=== PATIENT | female | born 1955 | race African-American/Black ===

== ENCOUNTER → 2016-10-25 | Outpatient (CLI) | payer OTHER ==
[2016-10-04 16:55] VITALS: BP 128/58
[~2016-10-25] MED LIST: ALBU0.635 IH; ALBU8.5H3 IH; ATOR40TA59 PO; BUDE10.2 IH; CYCL10TA2 PO; DICY20TA30 PO; GUAI118L13 PO; HYDR-2666 PO; IPRA14.7 IH; IPRA3AMP NEB; MELO15TA6 PO; PANT40TA3 PO; PRED20TA PO; SULF1TAB24 PO; TRAM-29 PO
--- NOTE | 2016-10-25 15:36 | RAD ---
Indication injury 3 weeks ago. Persistent pain. Pain particularly associated with the PIP joint of the ring finger. An AP view of the right hand was obtained as well as oblique and lateral imaging targeted to the ring finger. No acute bony finding is seen. There are some mild degenerative changes involving the right finger
== END | disposition home or self-care (01) ==
LOC: DXRADRC 15:03
PROVIDERS: ATTEND Physician Assistant Medical
DX: S69.91XA Unspecified injury of right wrist, hand and finger(s), initial encounter (principal)
CPT/HCPCS: 73140

== ENCOUNTER → 2016-11-08 | Outpatient (CLI) | payer OTHER ==
[2016-10-04 16:55] VITALS: BP 128/58
--- NOTE | 2016-11-08 12:36 | RAD ---
CT chest without IV contrast History: Follow-up lung nodule. Comparison: CT chest 07/16/2016. Technique: Helical CT of the chest was performed without intravenous contrast. Axial, sagittal, and coronal reconstructions were obtained. One or more of the following individualized dose reduction techniques were utilized for the study: Automated exposure control Adjustment of mA and/or kV according to patient's size Use of iterative reconstruction technique. Findings: Thyroid is symmetric. Trachea and mainstem bronchi appear patent. No mediastinal lymphadenopathy is seen. Heart and pericardium are unremarkable. Thoracic aorta has normal caliber. No pneumothorax or pleural effusion is appreciated. The 2 left lower lobe pulmonary nodules do not appear appreciably changed in size. The larger nodule measures 1.4 cm in maximum axial dimension (previously 1.4 cm, my remeasurement). The smaller nodule measures 6-7 mm (previously 6 mm, thought unchanged). No new pulmonary nodules are seen. Cholecystectomy clips are present. The mid thoracic spine demonstrates multiple bridging disc osteophytes, suggesting DISH. Impression: 1. No interval change in appearance of 2 left lower lobe pulmonary nodules. No new pulmonary nodules are identified. Continued surveillance recommended.
== END | disposition home or self-care (01) ==
LOC: CT 11:21
PROVIDERS: ATTEND Internal Medicine Pulmonary Disease
DX: D86.9 Sarcoidosis, unspecified (principal)
CPT/HCPCS: 71250

== ENCOUNTER 2016-11-09 07:50 | Emergency (ER) | payer OTHER ==
[~2016-11-09] VITALS: Ht 157.5 cm; Wt 119.7 kg
[2016-11-09] MEDS ORDERED: IPRATRPIUM/ALBUTEROL 0.5/2.5MG 3 ML NEBU. ONE ×2 (07:52→07:59)
[2016-11-09] MEDS: ACETAMINOPHEN 500 MG TABLET PO ONE (08:29)
[2016-11-09] MEDS: PREDNISONE 10 MG TABLET PO ONE (08:29)
[2016-11-09] MEDS ORDERED: ALBUTEROL SULFATE 2.5 MG/3 ML NEBU. NEB ONE (08:30)
[2016-11-09 08:37] LABS: INFLUENZA A PATIENT NEGATIVE (NEGATIVE); INFLUENZA B PATIENT NEGATIVE (NEGATIVE)
--- NOTE | 2016-11-09 08:44 | RAD ---
Exam: AP portable chest. History: Dyspnea. Comparison: 10/04/2016. Findings: The heart and mediastinal structures are within normal limits for size. Lungs are without infiltrate. No pneumothorax or pleural effusion is appreciated. Impression: 1. No acute cardiopulmonary process.
[2016-11-09] MEDS: IV NORMAL SALINE 1,000ML 1,000 ML IV ONE (08:50)
[2016-11-09] MEDS: IPRATRPIUM/ALBUTEROL 0.5/2.5MG 3 ML NEBU. NEB ONE (09:13)
--- NOTE | 2016-11-09 09:25 | ED.ADGEN ---
Past History Past Medical History: Asthma, COPD, Diabetes, Hypertension, Other Past Surgical History: Appendectomy, Cholecystectomy, Hysterectomy, Other Smoking: Non-smoker Alcohol Use: None Drug Use: None Adult General HPI HPI Patient is a 61-year-old female presents emergency department for increasing dyspnea. Patient has a long history of COPD and reports that she has had more difficulty recently with her breathing but over last 24 hours it is gotten acutely worse. She denies productive cough with does have a fever. She states when she is coughing or wheezing is exasperated. At home she uses 2 L of oxygen via nasal cannula as needed with her dyspnea. Reports she is also been using her albuterol but feels like she is having difficulty catching her breath this morning. Review of Systems Review of Systems Constitutional: Denies fever or chills [] Eyes: Denies change in visual acuity, redness, or eye pain [] HENT: Denies nasal congestion or sore throat [] Respiratory: Denies cough or shortness of breath [] Cardiovascular: No additional information not addressed in HPI [] GI: Denies abdominal pain, nausea, vomiting, bloody stools or diarrhea [] : Denies dysuria or hematuria [] Musculoskeletal: Denies back pain or joint pain [] Integument: Denies rash or skin lesions [] Neurologic: Denies headache, focal weakness or sensory changes [] Endocrine: Denies polyuria or polydipsia [] Current Medications Current Medications Current Medications Medications (Trade) Dose Ordered Sig/Saulo Start Time Stop Time Status Last Admin Dose Admin Acetaminophen 1000 mg 1,000 mg 1X ONCE 11/09/16 08:30 11/09/16 08:31 DC 11/09/16 08:29 1,000 MG Albuterol Sulfate (Ventolin) 2.5 mg 1X ONCE 11/09/16 08:30 11/09/16 08:31 DC Albuterol/ Ipratropium (Duoneb) 3 ml 1X ONCE 11/09/16 09:30 11/09/16 09:31 DC Prednisone (Prednisone) 50 mg 1X ONCE 11/09/16 08:30 11/09/16 08:31 DC 11/09/16 08:29 50 MG Sodium Chloride (Iv Sodium Chloride 0.9% 1,000ml) 1,000 ml @ 1,000 mls/hr 1X ONCE 11/09/16 09:00 11/09/16 10:00 DC 11/09/16 08:50 1,000 MLS/HR Allergies Allergies Allergies Coded Allergies Type Severity Reaction Last Updated Verified No Known Drug Allergies 01/04/16 No Physical Exam Physical Exam Constitutional: Well developed, well nourished, no acute distress, non-toxic appearance. [] HENT: Normocephalic, atraumatic, bilateral external ears normal, oropharynx moist, no oral exudates, nose normal. [] Eyes: PERRLA, EOMI, conjunctiva normal, no discharge. [] Neck: Normal range of motion, no tenderness, supple, no stridor. [] Cardiovascular:Heart rate regular rhythm, no murmur [] Lungs & Thorax: Bilateral breath sounds clear to auscultation [] Abdomen: Bowel sounds normal, soft, no tenderness, no masses, no pulsatile masses. [] Skin: Warm, dry, no erythema, no rash. [] Back: No tenderness, no CVA tenderness. [] Extremities: No tenderness, no cyanosis, no clubbing, ROM intact, no edema. [] Neurologic: Alert and oriented X 3, normal motor function, normal sensory function, no focal deficits noted. [] Psychologic: Affect normal, judgement normal, mood normal. [] Current Patient Data Vital Signs Vital Signs Date Time Temp Pulse Resp B/P Pulse Ox O2 Delivery O2 Flow Rate FiO2 11/09/16 10:15 98.7 116 20 132/67 93 Nasal Cannula 2 Lab Results Laboratory Tests Test 11/09/16 08:05 Influenza Type A (Rapid) Negative (NEGATIVE) Influenza Type B (Rapid) Negative (NEGATIVE) EKG EKG [] Radiology/Procedures Radiology/Procedures Exam: AP portable chest. History: Dyspnea. Comparison: 10/04/2016. Findings: The heart and mediastinal structures are within normal limits for size. Lungs are without infiltrate. No pneumothorax or pleural effusion is appreciated. Impression: 1. No acute cardiopulmonary process. DICTATED AND SIGNED BY: ELMA ELIAS MD DATE: 11/09/16 0840 CC: FAUSTO DOSS MD; MUNA MEEHAN ~ [] Course & Med Decision Making Course & Med Decision Making Pertinent Labs and Imaging studies reviewed. (See chart for details) The patient was febrile upon arrival. Her influenza screens are negative. Her chest x-rays reassuring. 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 She has had multiple breathing treatments as well as prednisone here in emergency department. She reports that she is feeling better and close to her baseline. Patient will be discharged back home with a prescription for prednisone as well as follow-up and return precautions. [] Final Impression Final Impression COPD exacerbation [] Problems: Dragon Disclaimer Dragon Disclaimer This electronic medical record was generated, in whole or in part, using a voice recognition dictation system. FAUSTO DOSS MD Nov 09, 2016 09:24
[2016-11-09] MEDS ORDERED: PRED20TA PO (09:26)
[2016-11-09] MEDS ORDERED: IPRATRPIUM/ALBUTEROL 0.5/2.5MG 3 ML NEBU. NEB ONE (09:30)
[2016-11-09 10:15] VITALS: BP 132/67
== END 2016-11-09 10:20 | disposition home or self-care (01) ==
LOC: ER 07:50
DX: J44.1 Chronic obstructive pulmonary disease with (acute) exacerbation (principal); E11.9 Type 2 diabetes mellitus without complications; I10 Essential (primary) hypertension; J45.909 Unspecified asthma, uncomplicated
CPT/HCPCS: 71010; 87804; 94640; 96360; 99285; J7512; J7620; J7030

== ENCOUNTER 2017-01-29 13:59 | Emergency (ER) | payer OTHER ==
[~2017-01-29] VITALS: Ht 157.5 cm; Wt 122.7 kg
[~2017-01-29 13:59] MED LIST changes: -ALBU8.5H3 IH; +ALBU8.5H8 IH; +CYCL-331 PO; -CYCL10TA2 PO; -HYDR-2666 PO; +HYDR-2758 PO; -TRAM-29 PO; +TRAM-48 PO
[2017-01-29 14:18] VITALS: BP 184/96
== END 2017-01-29 15:11 | disposition home or self-care (01) ==
LOC: ER 13:59
DX: R10.9 Unspecified abdominal pain (principal); Z53.21 Procedure and treatment not carried out due to patient leaving prior to being seen by health care provider

== ENCOUNTER → 2017-02-28 | Outpatient (CLI) | payer OTHER ==
[2017-01-29 14:18] VITALS: BP 184/96
--- NOTE | 2017-02-28 17:46 | RAD ---
KNEE LEFT 3V Clinical Indication: LEFT KNEE PAIN AND SWELLING Comparison: Knee radiographs dated 09/08/2015 Findings: No acute fracture or malalignment. 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 Patellar and tibial tuberosity enthesophytes. No suprapatellar joint effusion. No significant soft tissue abnormality. IMPRESSION: 1. No acute fracture or malalignment. 2. 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
== END | disposition home or self-care (01) ==
LOC: DXRADRC 10:13
PROVIDERS: ATTEND Physician Assistant Medical
DX: M17.12 Unilateral primary osteoarthritis, left knee (principal); M25.462 Effusion, left knee
CPT/HCPCS: 73562

== ENCOUNTER 2017-04-08 10:09 | Emergency (ER) | payer OTHER ==
[~2017-04-08] VITALS: Ht 170.2 cm; Wt 119.7 kg
[2017-04-08] MEDS ORDERED: IV NORMAL SALINE 1,000ML 1,000 ML ONE (10:21)
[2017-04-08] MEDS ORDERED: ADENOSINE 6 MG/2 ML VIAL IV ONE ×3 (10:21→11:10)
[2017-04-08] MEDS ORDERED: IPRATROPIUM BROMIDE 0.5 MG/2.5 ML NEBU. ONE (10:53)
--- NOTE | 2017-04-08 10:53 | PHYS DOC ---
Past History Past Medical History: Other Past Surgical History: Appendectomy, Cholecystectomy, Hysterectomy, Other Smoking: Non-smoker Alcohol Use: None Drug Use: None Adult General Chief Complaint Chief Complaint: Palpitations HPI HPI Patient is a 61-year-old female presenting to the emergency department for evaluation of shortness of breath chest pain and palpitations. She sees Dr. Keller at [facility] for her pulmonary care and says that she was placed on a 5 day steroid taper last week and finished at Tuesday. She says that she was feeling poorly over the weekend with continued shortness of breath and was doing a breathing treatment this morning at 5 AM and says that she started feeling very poorly with palpitations and fast heart rate sweating and some burning chest pain. On arrival she does look slightly uncomfortable and she is diaphoretic shortness of breath with audible wheezing. Her heart rate is 185 and appears consistent with SVT. She denies any prior episodes of SVT heart attacks or congestive heart failure. Patient is typically on 2 L of oxygen which is what she is on currently. She is in no obvious distress but does appear uncomfortable. Review of Systems Review of Systems Constitutional: Denies fever or chills [] Eyes: Denies change in visual acuity, redness, or eye pain [] HENT: Denies nasal congestion or sore throat [] Respiratory: Denies productive cough. + shortness of breath [] Cardiovascular: + CP GI: Denies abdominal pain, nausea, vomiting, bloody stools or diarrhea [] : Denies dysuria or hematuria [] Musculoskeletal: Denies back pain or joint pain [] Integument: Denies rash or skin lesions [] Neurologic: Denies headache, focal weakness. + dizziness sensory changes [] Current Medications Current Medications Current Medications Medications (Trade) Dose Ordered Sig/Saulo Start Time Stop Time Status Last Admin Dose Admin Adenosine (Adenocard) 12 mg 1X ONCE 04/08/17 10:30 04/08/17 10:31 UNV Methylprednisolone Sodium Succinate (SOLU-Medrol 125MG VIAL) 125 mg 1X ONCE 04/08/17 10:30 04/08/17 10:31 UNV Sodium Chloride 1,000 ml @ As Directed STK-MED ONCE 04/08/17 10:21 04/08/17 10:22 DC Allergies Allergies Allergies Coded Allergies Type Severity Reaction Last Updated Verified No Known Drug Allergies 01/04/16 No Physical Exam Physical Exam Constitutional: Diaphoretic, mild soa HENT: Normocephalic, atraumatic, bilateral external ears normal, oropharynx moist, no oral exudates, nose normal. [] Eyes: PERRLA, EOMI, conjunctiva normal, no discharge. [] Neck: Normal range of motion, no tenderness, supple, no stridor. [] Cardiovascular:Heart rate regular rhythm but tachycardic in 180s, no murmur [] Lungs & Thorax: Bilateral breath sounds diminished with I/E wheezing Abdomen: Bowel sounds normal, soft, no tenderness, no masses, no pulsatile masses. [] Skin: Warm, dry, no erythema, no rash. [] Back: No tenderness, no CVA tenderness. [] Extremities: No tenderness, no cyanosis, no clubbing, ROM intact, no edema. [] Neurologic: Alert and oriented X 3, normal motor function, normal sensory function, no focal deficits noted. [] EKG EKG Initial EKG showed SVT at a heart rate of 184. After conversion her EKG showed sinus tachycardia at 103 bpm with normal axis and 3 noted PVCs. Radiology/Procedures Radiology/Procedures [] Course & Med Decision Making Course & Med Decision Making Patient with new onset SVT likely from using her breathing treatment. Patient did convert with 12 mg of adenosine after failing with 6 mg of adenosine. Patient admits that she is feeling better after being converted to sinus. Patient with dyspnea, did not improve with outpatient steroids, she is struggling and using so many breathing treatments she went into SVT. Patient is not stable for discharge in my opinion as I am afraid she'll go back into SVT. She has been an SVT likely at least since this morning and probably yesterday and she said when she checked her blood pressure yesterday her heart rate was 170. I am concerned that she will put herself into heart failure. Patient will be admitted to the hospital but from my understanding there is no pulmonary consultation available at [facility] so she'll be transferred to [facility]. I spoke to Dr. Mendes and he agreed to accept the patient. Patient transferred in stable condition. Dragon Disclaimer Dragon Disclaimer This chart was dictated in whole or in part using Voice Recognition software in a busy, high-work load, and often noisy Emergency Department environment. It may contain unintended and wholly unrecognized errors or omissions. Departure Departure: Impression: Primary Impression: Sarcoidosis of lung Additional Impressions: Dyspnea SVT (supraventricular tachycardia) Disposition: 05 XFER OTHER ([facility]) Condition: STABLE Referrals: MUNA MEEHAN (PCP) Problem Qualifiers FAUSTO HOOVER DO Apr 08, 2017 10:53
[2017-04-08] MEDS ORDERED: IPRATROPIUM BROMIDE 0.5 MG/2.5 ML NEBU. NEB ONE (11:00)
[2017-04-08] MEDS ORDERED: methylPREDNISolone SOD SUCC PF 125 MG/2 ML VIAL. IV ONE (11:10)
[2017-04-08] MEDS ORDERED: LEVALBUTEROL 1.25 MG ONE (11:15)
[2017-04-08] MEDS ORDERED: IV NORMAL SALINE 1,000ML 1,000 ML IV ONE (11:30)
[2017-04-08 11:47] LABS: BASO # 0.1 x10^3/uL (0.0-0.2); BASO % 1 % (0-3); EOS # 0.3 x10^3/uL (0.0-0.7); EOS % 4 % (0-3); HEMATOCRIT 44.5 % (36.0-47.0); HEMOGLOBIN 14.5 g/dL (12.0-15.5); LYMPH # 4.3 x10^3/uL (1.0-4.8); LYMPH % 52 % (24-48); MEAN CORPUSCULAR HEMOGLOBIN 26 pg (25-35); MEAN CORPUSCULAR HGB CONC 33 g/dL (31-37); MEAN CORPUSCULAR VOLUME 79 fL (79-100); MONO # 0.4 x10^3/uL (0.0-1.1); MONO % 5 % (0-9); NEUT # 3.1 x10^3uL (1.8-7.7); NEUT % 38 % (31-73); PLATELET COUNT 236 x10^3/uL (140-400); RED BLOOD COUNT 5.63 x10^6/uL (3.50-5.40); RED CELL DISTRIBUTION WIDTH 15.3 % (11.5-14.5); WHITE BLOOD COUNT 8.1 x10^3/uL (4.0-11.0)
--- NOTE | 2017-04-08 12:02 | RAD ---
AP portable chest radiograph 04/08/2017 Clinical History: Chest pain and shortness of breath since earlier today. An AP portable erect digital radiograph of the chest was obtained. Comparison study is dated 11/09/2016. The cardiac silhouette is mildly enlarged. The thoracic aorta is mildly tortuous. No acute pulmonary infiltrate is seen. No pleural effusion or pneumothorax is noted. Degenerative changes are seen involving the thoracic spine and both shoulders. Impression: No acute abnormality is seen.
[2017-04-08 12:07] LABS: ALBUMIN 3.3 g/dL (3.4-5.0); ALBUMIN/GLOBULIN RATIO 0.9 (1.0-1.7); CALCIUM 8.9 mg/dL (8.5-10.1); GFR 68.4; MAGNESIUM 2.4 mg/dL (1.8-2.4); POTASSIUM 3.8 mmol/L (3.5-5.1); TOTAL BILIRUBIN 0.3 mg/dL (0.2-1.0); TOTAL PROTEIN 6.9 g/dL (6.4-8.2)
[2017-04-08 12:36] VITALS: BP 152/80
[2017-04-08 12:45] LABS: AMPHETAMINE/METHAMPHETAMINE NEG (NEG); BARBITURATES NEG (NEG); BENZODIAZEPINES NEG (NEG); CANNABINOIDS NEG (NEG); COCAINE NEG (NEG); METHADONE NEG (NEG); OPIATES NEG (NEG); PHENCYCLIDINE NEG (NEG)
[2017-04-08 12:58] LABS: BILIRUBIN,URINE NEG (NEG); CLARITY,URINE CLEAR; COLOR,URINE STRAW; GLUCOSE,URINE NEG (NEG)
[2017-04-08 12:59] LABS: BACTERIA,URINE 0 /HPF (0-FEW); NITRITE,URINE NEG (NEG); RBC,URINE 0 /HPF (0-2); SQUAMOUS EPITHELIAL CELL,UR OCC /LPF; UROBILINOGEN,URINE 0.2 mg/dL (0.2 mg/dL); WBC,URINE 0 /HPF (0-4)
--- NOTE | 2017-04-08 16:51 | EKG ---
[address] [address] Test Date: 2017-04-08 Test Time: 10:20:16 Pat Name: ANAI WHEELER Department: Room: Gender: F Neurology Tech: : [id number] Requested By: FAUSTO HOOVER Order Number: [id number] Reading MD: Jose Romero Measurements Intervals [place] Rate: 184 P: [place]: QRS: 21 QRSD: 72 T: 56 QT: 272 QTc: 477 Interpretive Statements S[employer] AVNRT Electronically Signed On 04-12-2017 9:48:44 CDT by Jose Romero
== END 2017-04-08 12:50 | disposition short-term general hospital (02) ==
LOC: ER 10:09
DX: I47.1 Supraventricular tachycardia (principal); D86.0 Sarcoidosis of lung; R61 Generalized hyperhidrosis
CPT/HCPCS: 36415; 71010; 80053; 80307; 81001; 82550; 82947; 83690; 83735; 83880; 84443; 84484; 85025; 85610; 85730; 93005; 94640; 96361; 96374; 96375; 99285; G0480; J0153; J2930; J7644; G0479; J7030

== ENCOUNTER → 2017-05-18 | Outpatient (CLI) | payer OTHER ==
--- NOTE | 2017-05-18 11:11 | RAD ---
DATE: 05/18/2017 EXAM: DIGITAL SCREEN BILAT W/CAD HISTORY: Screening COMPARISON: One year earlier This study was interpreted with the benefit of Computerized Aided Detection (CAD). FINDINGS: Breast Density: SCATTERED The breast parenchyma shows scattered fibroglandular densities. Breast parenchyma level B. In the right breast, on the cc view, there is a well defined density close to the chest wall along the plane of the nipple. A coned compression view and rolled CC views are suggested. Depending on the results of diagnostic mammography targeted ultrasound may be warranted. The left breast is unchanged. There has not been a significant change in the appearance of the breasts. IMPRESSION: Well-defined density seen in the right breast on the cc view. Additional imaging suggested as outlined above BI-RADS CATEGORY: 0 INCOMPLETE: NEED ADDITIONAL IMAGING EVAULATION AND/OR PRIOR MAMMOGRAMS FOR COMPARISON RECOMMENDED FOLLOW-UP: ADD ADDITIONAL IMAGING PQRS compliance statement: Patient information was entered into a reminder system with a target due date soon for the next mammogram. Mammography is a sensitive method for finding small breast cancers, but it does not detect them all and is not a substitute for careful clinical examination. A negative mammogram does not negate a clinically suspicious finding and should not result in delay in biopsying a clinically suspicious abnormality. "Our facility is accredited by the [employer] Mammography Program."
== END | disposition home or self-care (01) ==
LOC: MAMMO 09:14
PROVIDERS: ATTEND Physician Assistant Medical
DX: Z12.31 Encounter for screening mammogram for malignant neoplasm of breast (principal)
CPT/HCPCS: G0202; 77067

== ENCOUNTER → 2017-05-27 | Outpatient (CLI) | payer OTHER ==
--- NOTE | 2017-05-27 11:44 | RAD ---
DATE: May 27, 2017 EXAM: DIGITAL DIAGNOSTIC RT HISTORY: Further evaluation of new nodule seen posteriorly and centrally on the CC projection of the right breast seen on a screening mammogram dated May 18, 2017. COMPARISON: May 18, 2017 This study was interpreted with the benefit of Computerized Aided Detection (CAD). FINDINGS: Focal digital compression views of the right breast in the CC and MLO projections and digital rolled CC views of the right breast were performed. The previously seen nodular density resolves with the additional views consistent with a benign finding. IMPRESSION: Benign finding of the right breast. Recommend routine screening mammography in one year. BI-RADS CATEGORY: 2 BENIGN FINDING RECOMMENDED FOLLOW-UP: 12M 12 MONTH FOLLOW-UP PQRS compliance statement: Patient information was entered into a reminder system with a target due date May 19, 2018 for the next mammogram. Mammography is a sensitive method for finding small breast cancers, but it does not detect them all and is not a substitute for careful clinical examination. A negative mammogram does not negate a clinically suspicious finding and should not result in delay in biopsying a clinically suspicious abnormality. "Our facility is accredited by the [employer] Mammography Program."
== END | disposition home or self-care (01) ==
LOC: MAMMO 09:59
PROVIDERS: ATTEND Physician Assistant Medical
DX: R92.8 Other abnormal and inconclusive findings on diagnostic imaging of breast (principal)
CPT/HCPCS: G0206; 77065

== ENCOUNTER → 2017-08-26 | Outpatient (CLI) | payer OTHER ==
--- NOTE | 2017-08-26 13:38 | RAD ---
Chest, 2 views, 08/26/2017: History: Preop evaluation for knee surgery Comparison is made to a study from 04/08/2017. The heart size and pulmonary vascularity are normal. There is mild tortuosity of the thoracic aorta. No pulmonary infiltrate is seen. There is no evidence of pleural fluid. Moderate spurring is present in the spine. IMPRESSION: No acute cardiopulmonary abnormality is detected.
== END | disposition home or self-care (01) ==
LOC: DXRAD 13:15
PROVIDERS: ATTEND Internal Medicine Pulmonary Disease
DX: D86.9 Sarcoidosis, unspecified (principal); Z01.818 Encounter for other preprocedural examination; J45.909 Unspecified asthma, uncomplicated; Z87.891 Personal history of nicotine dependence
CPT/HCPCS: 71046

== ENCOUNTER → 2017-11-21 | Outpatient (CLI) | payer OTHER ==
--- NOTE | 2017-11-21 16:09 | RAD ---
Chest CT without contrast Clinical indications: Lung nodule follow-up. TECHNIQUE: Noncontrast helical CT scanning of the chest was performed. Without IV contrast, the sensitivity to detect organ pathology is decreased. PQRS compliance Statement One or more of the following individualized dose reduction techniques were utilized for this study: 1. Automated exposure control 2. Adjustment of the mA and/or kV according to patient size 3. Use of iterative reconstruction technique COMPARISON: December 31, 2015. FINDINGS: No enlarged thoracic lymphadenopathy is evident. The heart size is normal and no pericardial effusion is seen. No focal aneurysmal dilatation of the thoracic aorta is seen. A small hiatal hernia is evident. No adrenal mass is evident. Again seen are 2 left lower lobe lung nodules adjacent one another within the left lateral lung base and costophrenic angle. These are unchanged in size. No new lung nodules or lung infiltrate are seen. No pleural effusion or pneumothorax is evident. The proximal bronchial tree is patent. No osteolytic process is seen. IMPRESSION: Stable left lower lobe lung nodules. No new finding. Electronically signed by: Salomón Martinez MD (11/21/2017 4:06 PM) [facility]
== END | disposition home or self-care (01) ==
LOC: CT 09:09
PROVIDERS: ATTEND Internal Medicine Pulmonary Disease
DX: J44.9 Chronic obstructive pulmonary disease, unspecified (principal); K44.9 Diaphragmatic hernia without obstruction or gangrene; I10 Essential (primary) hypertension; E11.65 Type 2 diabetes mellitus with hyperglycemia; E78.00 Pure hypercholesterolemia, unspecified; R91.8 Other nonspecific abnormal finding of lung field
CPT/HCPCS: 71250

== ENCOUNTER 2018-01-05 13:23 | Emergency (ER) | payer OTHER ==
[~2018-01-05] VITALS: Ht 170.2 cm; Wt 122.7 kg
[2018-01-05 13:34] VITALS: BP 116/76
--- NOTE | 2018-01-05 14:06 | PHYS DOC ---
Past History Past Medical History: COPD Past Surgical History: Other Smoking: Non-smoker Alcohol Use: None Drug Use: None Adult General Chief Complaint Chief Complaint: UPPER EXTREMITY PAIN HPI HPI 62-year-old female presents with right upper back pain. She states that she woke up today and had stiffness and pain in the right side of her upper back. She is concerned that maybe she pulled a muscle yesterday. She wasn't doing anything extra strenuous. She states that it hurts when she abducts her right arm. If she completely relaxes her muscles it is mildly sore, but doesn't hurt as much. She is also had some tingling sensation going down the arm. No loss of strength. No recent trauma. No fever or chills. Review of Systems Review of Systems Constitutional: Denies fever or chills [] Eyes: Denies change in visual acuity, redness, or eye pain [] HENT: Denies nasal congestion or sore throat [] Respiratory: Denies cough or shortness of breath [] Cardiovascular: No additional information not addressed in HPI [] GI: Denies abdominal pain, nausea, vomiting, bloody stools or diarrhea [] : Denies dysuria or hematuria [] Musculoskeletal: right upper back pain [] Integument: Denies rash or skin lesions [] Neurologic: Denies headache, focal weakness or sensory changes [] Endocrine: Denies polyuria or polydipsia [] All other systems were reviewed and found to be within normal limits, except as documented in this note. Allergies Allergies Allergies Coded Allergies Type Severity Reaction Last Updated Verified No Known Drug Allergies 01/04/16 No Physical Exam Physical Exam Constitutional: Well developed, well nourished, no acute distress, non-toxic appearance. [] HENT: Normocephalic, atraumatic, bilateral external ears normal, oropharynx moist, no oral exudates, nose normal. [] Eyes: PERRLA, EOMI, conjunctiva normal, no discharge. [] Neck: Normal range of motion, no tenderness, supple, no stridor. [] Cardiovascular:Heart rate regular rhythm, no murmur [] Lungs & Thorax: Bilateral breath sounds clear to auscultation [] Abdomen: Bowel sounds normal, soft, no tenderness, no masses, no pulsatile masses. [] Skin: Warm, dry, no erythema, no rash. [] Back: Tenderness and muscle spasm in the right trapezius muscle. No bony deformity or step-off [] Extremities: No tenderness, no cyanosis, no clubbing, ROM intact, no edema. [] Neurologic: Alert and oriented X 3, normal motor function, normal sensory function, no focal deficits noted. [] Psychologic: Affect normal, judgement normal, mood normal. [] Current Patient Data Vital Signs Vital Signs Date Time Temp Pulse Resp B/P (MAP) Pulse Ox O2 Delivery O2 Flow Rate FiO2 01/05/18 13:34 97.8 85 18 96 Room Air EKG EKG [] Radiology/Procedures Radiology/Procedures [] Course & Med Decision Making Course & Med Decision Making Pertinent Labs and Imaging studies reviewed. (See chart for details) Based on the patient's exam, I believe she has a muscle strain of the trapezius with reflex spasm. I will recommend ibuprofen 6 her milligrams 3 times a day as well as 5 mg of Flexeril 3 times a day. [] Dragon Disclaimer Dragon Disclaimer This electronic medical record was generated, in whole or in part, using a voice recognition dictation system. Departure Departure: Referrals: MUNA MEEHAN (PCP) Scripts Cyclobenzaprine Hcl (CYCLOBENZAPRINE HCL) 5 Mg Tablet 1 TAB PO TID, #30 TAB Prov: JUNIOR GOMES DO 01/05/18 JUNIOR GOMES DO January 05, 2018 14:06
[2018-01-05] MEDS ORDERED: CYCL5TAB PO (14:08)
== END 2018-01-05 14:13 | disposition home or self-care (01) ==
LOC: ER 13:23
DX: S29.012A Strain of muscle and tendon of back wall of thorax, initial encounter (principal); J44.9 Chronic obstructive pulmonary disease, unspecified; X58.XXXA Exposure to other specified factors, initial encounter; Y93.89 Activity, other specified; Y99.8 Other external cause status; Y92.89 Other specified places as the place of occurrence of the external cause
CPT/HCPCS: 99283

== ENCOUNTER 2018-01-12 10:27 | Emergency (ER) | payer OTHER ==
[~2018-01-12] VITALS: Ht 170.2 cm; Wt 88.0 kg
[~2018-01-12 10:27] MED LIST changes: +CYCL5TAB PO
[2018-01-12] MEDS ORDERED: LIDO700A39 TP (10:50)
--- NOTE | 2018-01-12 10:50 | PHYS DOC ---
Past History Past Medical History: Anxiety, COPD Additional Past Medical Histor: sarcoidosis Past Surgical History: Other Smoking: Non-smoker Alcohol Use: None Drug Use: None Adult General Chief Complaint Chief Complaint: UPPER EXTREMITY PAIN HPI HPI Patient is a pleasant 62-year-old female who presents to the emergency department for evaluation. She states for the past 2-1/2 weeks, she has had right shoulder pain, described as sharp, radiating from her right trapezius area down towards her right shoulder area and right arm. Movement, especially external rotation, seems to worsen her pain. She has not had any numbness or focal weakness. She was seen in the emergency department recently, instructed to use NSAIDs and given a prescription for a muscle relaxer which has not improved her symptoms. She has also been using heat, without improvement. She presents to the emergency department for persistent pain. No imaging was done at the time. The patient has been using a sling that was provided to her by a family member, with some minimal improvement, as decreasing movement helps improve the pain. Other than as stated above, there are no alleviating, or exacerbating factors to her symptoms. Review of Systems Review of Systems Constitutional: Denies fever or chills [] Eyes: Denies change in visual acuity, redness, or eye pain [] HENT: Denies nasal congestion or sore throat [] Respiratory: Denies cough or shortness of breath. Patient is noted to be wheezing. [] Cardiovascular: The patient denies any shortness of breath, chest pain, palpitations, or orthopnea [] GI: Denies abdominal pain, nausea, vomiting, bloody stools or diarrhea [] : Denies dysuria or hematuria [] Musculoskeletal: Denies back pain or joint pain, other than as noted in the history of present illness [] Integument: Denies rash or skin lesions [] Neurologic: Denies headache, focal weakness or sensory changes [] Endocrine: Denies polyuria or polydipsia [] Current Medications Current Medications Current Medications Medications (Trade) Dose Ordered Sig/Saulo Start Time Stop Time Status Last Admin Dose Admin Albuterol/ Ipratropium (Duoneb) 3 ml 1X ONCE 01/12/18 10:45 01/12/18 10:46 UNV Allergies Allergies Allergies Coded Allergies Type Severity Reaction Last Updated Verified No Known Drug Allergies 01/04/16 No Physical Exam Physical Exam PHYSICAL EXAM: CONSTITUTIONAL: Well developed, well nourished HEAD: normocephalic, atraumatic EENT: PERRL, EOMI. Conjunctivae normal color, sclerae non-icteric; moist mucous membranes. NECK: Supple, non-tender; no meningismus. There is no midline vertebral tenderness to palpation to the cervical spine. LUNGS: There are coarse expiratory wheezes in all lung toribio with unlabored breathing, the patient is speaking in full sentences. HEART: Regular rate and rhythm, no murmur CHEST: No deformity; non-tender ABDOMEN: The abdomen is soft, and non-tender, no masses or bruits. EXTREM: There is diffuse tenderness to palpation to the musculature of the right shoulder, both posteriorly, and laterally/superiorly, all of which reproduces the patient's pain. There is no gross deformity. Distal PMS in the right upper extremity are intact. The remainder of the extremities are unremarkable, with Normal ROM; no deformity, no calf tenderness. Normal pulses palpable in all extremities. There is no pedal edema. SKIN: No rash; no diaphoresis NEURO: Alert; normal speech and cognition; CN's grossly intact; strength grossly intact without focal deficit. BACK: No CVA TTP.There is no bony tenderness to palpation of the thoracic or lumbar spine. EKG EKG [] Radiology/Procedures Radiology/Procedures [PROCEDURE: SHOULDER 2+V RIGHT Examination: 2 views of the right shoulder HISTORY: History of right shoulder pain COMPARISON: 06/23/2015 FINDINGS: The humerus head is within the glenoid. There is mild degenerative changes identified in the acromioclavicular joint. There is no acute fracture or dislocation identified. IMPRESSION: 1. No acute osseous findings. 2. Mild degenerative changes acromioclavicular joint.] Course & Med Decision Making Course & Med Decision Making Pertinent lmaging studies reviewed. (See chart for details) [I am uncertain of the exact etiology of the patient's symptoms. Likely she has shoulder degenerative changes, or rotator cuff injury that requires orthopedic evaluation. Another differential consideration is the possibility of a cervical radiculopathy. I stressed importance for close outpatient orthopedic follow-up for further evaluation and likely MRI imaging. I will add a Lidoderm patch to the patient's medication regimen. Return precautions were discussed in detail.] Dragon Disclaimer Dragon Disclaimer This electronic medical record was generated, in whole or in part, using a voice recognition dictation system. Departure Departure: Impression: Primary Impression: Shoulder pain Additional Impression: Wheezing Disposition: 01 HOME, SELF-CARE Condition: STABLE Referrals: MUNA MEEHAN (PCP) Patient Instructions: Shoulder Pain Additional Instructions: Follow-up with Dr. Castanon, [facility], [phone]. Please call to schedule appointment. Continue using ibuprofen 400-600 mg every 6 hours as needed for pain. Scripts Lidocaine (Lidocaine) 1 Each Adh..patch 1 EACH TP DAILY, #15 PATCH Prov: FAUSTO CARROLL MD 01/12/18 Problem Qualifiers FAUSTO CARROLL MD Jan 12, 2018 10:50
[2018-01-12] MEDS ORDERED: ALBUTEROL SULFATE 2.5 MG/3 ML NEBU. ONE (10:51)
--- NOTE | 2018-01-12 11:06 | RAD ---
Examination: 2 views of the right shoulder HISTORY: History of right shoulder pain COMPARISON: 06/23/2015 FINDINGS: The humerus head is within the glenoid. There is mild degenerative changes identified in the acromioclavicular joint. There is no acute fracture or dislocation identified. IMPRESSION: 1. No acute osseous findings. 2. Mild degenerative changes acromioclavicular joint. Electronically signed by: Emmanuel Chow MD (01/12/2018 11:02 AM) [id number]
[2018-01-12] MEDS: IPRATRPIUM/ALBUTEROL 0.5/2.5MG 3 ML NEBU. NEB ONE ×2 (11:11→11:12)
[2018-01-12 11:23] VITALS: BP 149/89
== END 2018-01-12 11:20 | disposition home or self-care (01) ==
LOC: ER 10:27
DX: M25.511 Pain in right shoulder (principal); R06.2 Wheezing; F41.9 Anxiety disorder, unspecified; J44.9 Chronic obstructive pulmonary disease, unspecified
CPT/HCPCS: 73030; 94640; J7620; 99284-25

== ENCOUNTER 2018-03-18 08:38 | Emergency (ER) | payer OTHER ==
[~2018-03-18] VITALS: Ht 170.2 cm; Wt 103.4 kg
[~2018-03-18 08:38] MED LIST changes: -IPRA3AMP NEB; +IPRA3AMP29 NEB; +LIDO700A39 TP
[2018-03-18 08:49] VITALS: BP 120/67
--- NOTE | 2018-03-18 09:05 | PHYS DOC ---
Past History Past Medical History: Anxiety, COPD Additional Past Medical Histor: sarcoidosis Past Surgical History: Other Smoking: Non-smoker Alcohol Use: None Drug Use: None Adult General Chief Complaint Chief Complaint: UPPER EXTREMITY INJURY HPI HPI Patient is a 62-year-old female who presents to the emergency department complaining of right arm and shoulder pain. Patient states that on Tuesday as she was taking out her garbage she fell down some stairs. She denies hitting her head and denies any loss of consciousness. Patient states that her right shoulder and right elbow are tender when she tries to move them. She describes the pain as sharp and 2/10 in severity. Patient states that when she touches her right shoulder or raises her arm that there is some mild pain that goes down her arm. She states that she took 2 Aleve last night but they did not help with the pain. She also says that moving her arm and pushing on her shoulder and elbow make the pain worse. Denies head trauma. Denies LOC. Denies neck pain. Review of Systems Review of Systems Constitutional: Denies fever or chills [] Eyes: Denies change in visual acuity, redness, or eye pain [] HENT: Denies nasal congestion or sore throat [] Respiratory: Denies cough or shortness of breath [] Cardiovascular: Denies chest pain and palpitations[] GI: Denies abdominal pain, nausea, vomiting, bloody stools or diarrhea [] Musculoskeletal: Complains of right shoulder and elbow pain[] Integument: Denies any skin lesions or lacerations[] Neurologic: Denies headache, focal weakness or sensory changes [] Complete systems were reviewed and found to be within normal limits, except as documented in this note. Allergies Allergies Allergies Coded Allergies Type Severity Reaction Last Updated Verified No Known Drug Allergies 01/04/16 No Physical Exam Physical Exam Constitutional: Well developed, well nourished, no acute distress, non-toxic appearance. [] HENT: Normocephalic, atraumatic, oropharynx moist Eyes: PERRL, EOMI [] Neck: Normal range of motion, no midline tenderness, supple Cardiovascular: Heart rate regular rhythm, no murmur [] Lungs & Thorax: Bilateral breath sounds clear to auscultation [] Skin: Warm, dry, no erythema, no rash. [] Back: No tenderness, no CVA tenderness. [] Extremities: Tenderness to palpation on the lateral aspect of her right shoulder and on the olecranon of her right elbow. Limited active shoulder abduction to 90. Tenderness with right arm supination. No edema, CR < 2 sec, Radial pulses +2 bilaterally Neurologic: Alert and oriented X 3, normal motor function, normal sensory function, no focal deficits noted. [] EKG EKG [] Radiology/Procedures Radiology/Procedures PROCEDURE: SHOULDER 2+V RIGHT Right shoulder, 3 views, 03/18/2018: HISTORY: Fall, pain No fracture or dislocation is identified. There is mild degenerative change at the glenohumeral and acromioclavicular articulations. IMPRESSION: No acute bony abnormality is detected. Right elbow, 3 views, 03/18/2018: No fracture or dislocation is identified. There is mild spurring at the elbow joint. There is spurring at the triceps tendon insertion site upon the olecranon process. No joint effusion is evident. IMPRESSION: No acute bony abnormality is detected. Electronically signed by: Hans Lowry MD (03/18/2018 9:46 AM) [facility] PROCEDURE: ELBOW RIGHT 3V Right shoulder, 3 views, 03/18/2018: HISTORY: Fall, pain No fracture or dislocation is identified. There is mild degenerative change at the glenohumeral and acromioclavicular articulations. IMPRESSION: No acute bony abnormality is detected. Right elbow, 3 views, 03/18/2018: No fracture or dislocation is identified. There is mild spurring at the elbow joint. There is spurring at the triceps tendon insertion site upon the olecranon process. No joint effusion is evident. IMPRESSION: No acute bony abnormality is detected. Electronically signed by: Hans Lowry MD (03/18/2018 9:46 AM) [facility] Course & Med Decision Making Course & Med Decision Making Pertinent Labs and Imaging studies reviewed. (See chart for details) Patient is a 62-year-old female who presents to emergency department complaining of right arm and shoulder pain. X-ray without acute fracture or dislocation. Olecranon noted with osteophyte with possible nondisplaced fracture of osteophyte. Radiological report without fracture. Symptomatic splint applied with sling. Educated patient on need for shoulder circles to prevent frozen shoulder. Patient stable for discharge with outpatient follow- up with PCP/Orthopedics. Orthopedic referral provided. Discussed findings and plan with patient, who acknowledges understanding and agreement. [] Dragon Disclaimer Dragon Disclaimer This electronic medical record was generated, in whole or in part, using a voice recognition dictation system. Splinting Splinting : Location: right elbow Hand-Made Type: plaster Splint: ulnar Pre-Proc Neuro Vasc Exam: normal Post-Proc Neuro Vasc Exam: normal, unchanged from pre-exam Progress Placed by Medical student and staff combat information center officer under direct supervision by ED physician. Departure Departure: Impression: Primary Impression: Elbow contusion Additional Impressions: Right shoulder strain Fall Disposition: HOME, SELF-CARE Condition: STABLE Referrals: MUNA MEEHAN (PCP) Patient Instructions: Elbow Contusion, [id number], Fall Prevention and Home Safety, [id number], Shoulder Sprain Additional Instructions: [facility] Scripts Orphenadrine Citrate (ORPHENADRINE CITRATE) 100 Mg Tablet.er 1 TAB PO BID PRN for MUSCLE PAIN, #14 TAB 0 Refills Prov: ELMA CHAVES DO 03/18/18 Problem Qualifiers Primary Impression: Elbow contusion Encounter type: initial encounter Laterality: right Qualified Codes: S50.01XA - Contusion of right elbow, initial encounter Additional Impressions: Right shoulder strain Encounter type: initial encounter Qualified Codes: S46.911A - Strain of unspecified muscle, fascia and tendon at shoulder and upper arm level, right arm , initial encounter Fall Encounter type: initial encounter Qualified Codes: W19.XXXA - Unspecified fall, initial encounter ELMA CHAVES DO Mar 18, 2018 09:05
--- NOTE | 2018-03-18 09:50 | RAD ---
Right shoulder, 3 views, 03/18/2018: HISTORY: Fall, pain No fracture or dislocation is identified. There is mild degenerative change at the glenohumeral and acromioclavicular articulations. IMPRESSION: No acute bony abnormality is detected. Right elbow, 3 views, 03/18/2018: No fracture or dislocation is identified. There is mild spurring at the elbow joint. There is spurring at the triceps tendon insertion site upon the olecranon process. No joint effusion is evident. IMPRESSION: No acute bony abnormality is detected. Electronically signed by: Hans Lowry MD (03/18/2018 9:46 AM) [facility]
[2018-03-18] MEDS ORDERED: ORPH-16 PO (10:13)
== END 2018-03-18 10:33 | disposition home or self-care (01) ==
LOC: ER 08:38
DX: S46.911A Strain of unspecified muscle, fascia and tendon at shoulder and upper arm level, right arm, initial encounter (principal); J44.9 Chronic obstructive pulmonary disease, unspecified; F41.9 Anxiety disorder, unspecified; W10.8XXA Fall (on) (from) other stairs and steps, initial encounter; Y93.89 Activity, other specified; Y92.89 Other specified places as the place of occurrence of the external cause; Y99.8 Other external cause status
CPT/HCPCS: 29105; 73030; 73080; 99284

== ENCOUNTER 2018-04-03 16:05 | Inpatient (IN) | payer OTHER ==
[~2018-04-03] VITALS: Ht 170.2 cm; Wt 103.1 kg
[~2018-04-03 16:05] MED LIST changes: +ORPH-16 PO
[2018-04-03] MEDS ORDERED: IV NORMAL SALINE 1,000ML 1,000 ML IV SCH (16:29)
[2018-04-03 16:44] LABS: BASO # 0.2 x10^3/uL (0.0-0.2); BASO % 2 % (0-3); EOS # 0.2 x10^3/uL (0.0-0.7); EOS % 2 % (0-3); HEMATOCRIT 46.4 % (36.0-47.0); LYMPH # 6.9 x10^3/uL (1.0-4.8); LYMPH % 63 % (24-48); MEAN CORPUSCULAR HEMOGLOBIN 26 pg (25-35); MEAN CORPUSCULAR HGB CONC 32 g/dL (31-37); MEAN CORPUSCULAR VOLUME 82 fL (79-100); MONO # 0.5 x10^3/uL (0.0-1.1); MONO % 5 % (0-9); NEUT # 3.2 x10^3uL (1.8-7.7); NEUT % 29 % (31-73); PLATELET COUNT 303 x10^3/uL (140-400); RED BLOOD COUNT 5.68 x10^6/uL (3.50-5.40); RED CELL DISTRIBUTION WIDTH 16.1 % (11.5-14.5)
--- NOTE | 2018-04-03 16:49 | EKG ---
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
[2018-04-03] MEDS ORDERED: ADENOSINE 6 MG/2 ML VIAL IV ONE ×2 (17:00)
--- NOTE | 2018-04-03 17:07 | PHYS DOC ---
Past History Past Medical History: Anxiety, Asthma, COPD Additional Past Medical Histor: sarcoidosis Past Surgical History: Appendectomy, Cholecystectomy, Gastric Bypass, Hysterectomy, Other Smoking: Non-smoker Alcohol Use: None Drug Use: None Adult General Chief Complaint Chief Complaint: CHEST PAIN HPI HPI Patient is a 62-year-old female patient who came with her daughter to emergency room with complaining of intermittent episodes of chest pain, shortness of breath, palpitation since this morning. Patient states she had substernal chest pain started at 9 AM today associated with diaphoresis, shortness of breath and palpitation the same as previous episodes of palpitation that she had 2 months ago. Patient denies recent dehydration, fever and chills, nausea and vomiting, focal neuro deficit. Review of Systems Review of Systems Constitutional: Denies fever or chills [] Eyes: Denies change in visual acuity, redness, or eye pain [] HENT: Denies nasal congestion or sore throat [] Respiratory: Denies cough, reports shortness of breath [] Cardiovascular: No additional information not addressed in HPI [] GI: Denies abdominal pain, nausea, vomiting, bloody stools or diarrhea [] : Denies dysuria or hematuria [] Musculoskeletal: Denies back pain or joint pain [] Integument: Denies rash or skin lesions [] Neurologic: Denies headache, focal weakness or sensory changes [] Endocrine: Denies polyuria or polydipsia [] All other systems were reviewed and found to be within normal limits, except as documented in this note. Current Medications Current Medications Current Medications Medications (Trade) Dose Ordered Sig/Saulo Start Time Stop Time Status Last Admin Dose Admin Adenosine (Adenocard) 6 mg 1X ONCE 04/03/18 17:00 04/03/18 17:01 04/03/18 16:47 6 MG Sodium Chloride 1,000 ml @ 1,000 mls/hr Q1H 04/03/18 16:29 04/03/18 17:28 04/03/18 16:44 1,000 MLS/HR Allergies Allergies Allergies Coded Allergies Type Severity Reaction Last Updated Verified No Known Drug Allergies 01/04/16 No Physical Exam Physical Exam Constitutional: Well developed, well nourished, mild distress, non-toxic appearance. [] HENT: Normocephalic, atraumatic, oropharynx moist, no oral exudates, nose normal. [] Eyes: PERRLA, EOMI, conjunctiva normal, no discharge. [] Neck: Normal range of motion, no tenderness, supple, no stridor. [] Cardiovascular: Tachycardia, no murmur [] Lungs & Thorax: Bilateral breath sounds clear to auscultation [] Abdomen: Bowel sounds normal, soft, no tenderness, no masses, no pulsatile masses. [] Skin: Warm, dry, no erythema, no rash. [] Back: No tenderness, no CVA tenderness. [] Extremities: No tenderness, no cyanosis, no clubbing, ROM intact, no edema. [] Neurologic: Alert and oriented X 3, normal motor function, normal sensory function, no focal deficits noted. [] Psychologic: Affect normal, judgement normal, mood normal. [] Current Patient Data Lab Results Laboratory Tests Test 04/03/18 16:30 White Blood Count 11.0 x10^3/uL (4.0-11.0) Red Blood Count 5.68 x10^6/uL (3.50-5.40) H Hemoglobin 15.0 g/dL (12.0-15.5) Hematocrit 46.4 % (36.0-47.0) Mean Corpuscular Volume 82 fL (79-100) Mean Corpuscular Hemoglobin 26 pg (25-35) Mean Corpuscular Hemoglobin Concent 32 g/dL (31-37) Red Cell Distribution Width 16.1 % (11.5-14.5) H Platelet Count 303 x10^3/uL (140-400) Neutrophils (%) (Auto) 29 % (31-73) L Lymphocytes (%) (Auto) 63 % (24-48) H Monocytes (%) (Auto) 5 % (0-9) Eosinophils (%) (Auto) 2 % (0-3) Basophils (%) (Auto) 2 % (0-3) Neutrophils # (Auto) 3.2 x10^3uL (1.8-7.7) Lymphocytes # (Auto) 6.9 x10^3/uL (1.0-4.8) H Monocytes # (Auto) 0.5 x10^3/uL (0.0-1.1) Eosinophils # (Auto) 0.2 x10^3/uL (0.0-0.7) Basophils # (Auto) 0.2 x10^3/uL (0.0-0.2) EKG EKG EKG interpreted by me. EKG at 1628 showed SVT at rate of 179, poor R-wave progress in anteroseptal leads, no acute ST and T-wave abnormalities[] Radiology/Procedures Radiology/Procedures [] Course & Med Decision Making Course & Med Decision Making Pertinent Labs and Imaging studies reviewed. (See chart for details) Evaluation of patient in ER showed 62-year-old female patient with complaining of palpitation and chest pain. Patient had a safety Heart rate of 179 changed to sinus rhythm with 6 mg of Adenosine at 1647. Patient states her chest pain resolved. Labs showed elevation of troponin. Plan to admit patient with diagnosis of acute chest pain and SVT. Dr Hernandez accepted admission at 1748. Dragon Disclaimer Dragon Disclaimer This electronic medical record was generated, in whole or in part, using a voice recognition dictation system. Departure Departure: Impression: Primary Impression: SVT (supraventricular tachycardia) Additional Impressions: Acute chest pain Elevated troponin Disposition: ADMITTED INPATIENT (at 1755) Admitting Physician: Dottie Hernandez Condition: GUARDED Referrals: MUNA MEEHAN (PCP) Critical Care Time Critical care time was [60] minutes exclusive of procedures. Problem Qualifiers YOLANDA HARP MD Apr 03, 2018 17:07
[2018-04-03] MEDS ORDERED: ASPIRIN 81 MG TAB.CHEW PO ONE (17:15)
[2018-04-03 17:50] LABS: AMPHETAMINE/METHAMPHETAMINE NEG (NEG); BARBITURATES NEG (NEG); BENZODIAZEPINES NEG (NEG); CANNABINOIDS NEG (NEG); COCAINE NEG (NEG); METHADONE NEG (NEG); OPIATES NEG (NEG); PHENCYCLIDINE NEG (NEG)
[2018-04-03 18:04] LABS: % BASOS 2 % (0-3); % EOS 1 % (0-5); % LYMPHS 55 % (24-48); % MONOS 4 % (0-10); % SEGS 22 % (35-66)
[2018-04-03 18:06] LABS: PLT ESTIMATE ADEQUATE (ADEQUATE); SMUDGE CELLS PRESENT
[2018-04-03 19:47] LABS: ALBUMIN 3.4 g/dL (3.4-5.0); ALBUMIN/GLOBULIN RATIO 0.9 (1.0-1.7); CALCIUM 9.1 mg/dL (8.5-10.1); GFR 68.2; MAGNESIUM 2.4 mg/dL (1.8-2.4); POTASSIUM 3.4 mmol/L (3.5-5.1); TOTAL BILIRUBIN 0.3 mg/dL (0.2-1.0)
[2018-04-03 23:00] VITALS: BP 125/82
[2018-04-04] MEDS ORDERED: DICYCLOMINE HCL 20 MG TABLET PO PRN (02:00)
--- NOTE | 2018-04-04 05:14 | RAD ---
PORTABLE CHEST 1V Clinical Indication: PALPITATIONS, DIAPHORETIC Comparison: Two-view chest August 26, 2017. Findings: The cardiomediastinal silhouette is normal. Lungs are clear. There is no pneumothorax. No pleural effusion is appreciated. No acute bone abnormality. IMPRESSION: No acute cardiopulmonary process. Electronically signed by: Preet Cervantes MD (04/04/2018 5:11 AM) [id number]
[2018-04-04 05:27] VITALS: BP 128/75
[2018-04-04] MEDS: SMZ/TMP 800/160MG TABLET. PO SCH ×2 (08:33→20:47)
[2018-04-04] MEDS: MELOXICAM 15 MG TABLET. PO SCH (08:33)
[2018-04-04] MEDS: PANTOPRAZOLE 40 MG TABLET. PO SCH (08:33)
[2018-04-04] MEDS: BUDESONIDE 0.5 MG/2 ML NEBU NEB SCH ×2 (08:44→19:47)
[2018-04-04] MEDS: IPRATRPIUM/ALBUTEROL 0.5/2.5MG 3 ML NEBU. NEB SCH ×4 (08:44→19:47)
[2018-04-04] MEDS: LIDOCAINE (700MG/PATCH) PATCH. TP SCH (08:46)
[2018-04-04] MEDS ORDERED: CYCLOBENZAPRINE 10 MG TABLET. PO SCH (09:00)
--- NOTE | 2018-04-04 09:38 | PDOC2 ---
ELLE BALES APRN 04/04/18 0938: CONSULT Date of Admission DATE: 04/04/18 TIME: 09:38 Reason for Consult: svt, cp Problem List Problems Medical Problems: (1) Acute chest pain Status: Acute (2) Chest pain Status: Acute (3) Elevated troponin Status: Acute (4) SVT (supraventricular tachycardia) Status: Acute History of Present Illness Ms Jain is a 62 year old female who presented with complaints of rapid heart rate, chest burning, dyspnea and lightheadedness. Symptoms onset at rest and unresolved so she decided to present for evaluation. She reports she has had these symptoms off and on for quite some time without any triggering factors. symptoms occur both at rest and while exerting. Exertional activities do not always trigger symptoms and she reports being able to walk several blocks to her daughters house. She denies congestive symptoms. She reports gastric sleeve surgery about 1 year ago and a loss of just over 100 lbs in that time. Cardiovascular: HTN, hyperipidemia, Other (sarcoidosis) Pulmonary: COPD, Other (reported lung mass "being watched") GI: GERD, Other (remote history of ulcer) Musculoskeletal: Osteoarthritis Endocrine: Diabetes Past Surgical History gastric sleeve Past Surgical History: Cholecystectomy, Hysterectomy, Other (knee surgery) Family History coronary artery disease Social History non smoker, no significant ETOH, + medical marijuana while living in [place], continues to indulge occasionally Current Medications Current Medications Adenosine (Adenocard) 12 mg 1X ONCE IV ; Start 04/03/18 at 17:00; Stop at 17:01; Status DC Sodium Chloride 1,000 ml @ 1,000 mls/hr Q1H IV Last administered on 04/03/18at 16:44; Start 04/03/18 at 16:29; Stop 04/03/18 at 17:28; Status DC Adenosine (Adenocard) 6 mg 1X ONCE IV Last administered on 04/03/18at 16:47; Start 04/03/18 at 17:00; Stop 04/03/18 at 17:01; Status DC Aspirin (Children'S Aspirin) 324 mg 1X ONCE PO Last administered on 04/03/18at 17:16; Start 04/03/18 at 17:15; Stop 04/03/18 at 17:16; Status DC Albuterol/ Ipratropium (Duoneb) 3 ml RTQID NEB Last administered on 04/04/18 08:44; Start 04/04/18 at 08:00 Trimethoprim/ Sulfamethoxazole (Bactrim Ds) 1 tab BID PO Last administered on 08:33; Start 04/04/18 at 09:00 Cyclobenzaprine HCl (Flexeril) 10 mg TID PO Last administered on 04/04/18 08: 34; Start 04/04/18 at 09:00 Dicyclomine HCl (Bentyl) 20 mg PRN QID PRN PO abdominal pain/cramps, nausea; Start 04/04/18 at 02:00 Lidocaine (Lidoderm) 1 patch DAILY TP Last administered on 04/04/18 08:46; Start 04/04/18 at 09:00 Pantoprazole Sodium (Protonix) 40 mg DAILYAC PO Last administered on 04/04/18 08:33; Start 04/04/18 at 07:30 Atorvastatin Calcium (Lipitor) 40 mg QHS PO ; Start 04/04/18 at 21:00 Meloxicam (Mobic) 15 mg DAILY PO Last administered on 04/04/18 08:33; Start at 09:00 Budesonide (Pulmicort) 0.5 mg RTBID NEB Last administered on 04/04/18 08:44; Start 04/04/18 at 08:00 Active Scripts Active Orphenadrine Citrate 100 Mg Tablet.er 1 Tab PO BID PRN Lidocaine 1 Each Adh..patch 1 Each TP DAILY Cyclobenzaprine Hcl 5 Mg Tablet 1 Tab PO TID Duoneb 0.5-3(2.5) Mg/3 Ml (Albuterol/Ipratropium) 3 Ml Ampul.neb 3 Ml NEB QID Guaifenesin-Codeine Syrup (Guaifenesin/Codeine Phosphate) 118 Ml Liquid 5 Ml PO Q4-6HRS PRN Bactrim Ds Tablet (Sulfamethoxazole/Trimethoprim) 1 Each Tablet 1 Each PO BID Cyclobenzaprine Hcl 10 Mg Tablet 1 Tab PO TID PRN Bentyl (Dicyclomine Hcl) 20 Mg Tablet 1 Tab PO QID PRN Protonix (Pantoprazole Sodium) 40 Mg Tablet.dr 1 Tab PO DAILY Reported Prednisone 20 Mg Tablet 1.5 Tab PO DAILY Proair Hfa Inhaler (Albuterol Sulfate) 8.5 Gm Hfa.aer.ad IH PRN Q4HRS Atorvastatin Calcium 40 Mg Tablet PO DAILY Mobic (Meloxicam) 15 Mg Tablet PO DAILY Symbicort 160-4.5 Mcg Inhaler (Budesonide/Formoterol Fumarate) 10.2 Gm Hfa.aer.ad IH BID Ultram (Tramadol HCl) 50 Mg Tablet PO Accuneb (Albuterol Sulfate) 0.63 Mg/3 Ml Vial.neb IH QID Allergies: Coded Allergies: No Known Drug Allergies (Unverified , 01/04/16) Review of System as per HPI or negative General: Alert, Oriented X3, Cooperative, No acute distress HEENT: Atraumatic, EOMI, Mucous membr. moist/pink Lungs: Other (coarse bilaterally) VITALS Vital Signs Date Time Temp Pulse Resp B/P (MAP) Pulse Ox O2 Delivery O2 Flow Rate FiO2 04/04/18 05:27 97.4 84 22 128/75 (92) 97 Nasal Cannula 2.0 Labs Laboratory Tests Test 04/03/18 16:30 04/03/18 17:32 04/03/18 19:17 04/03/18 21:04 White Blood Count 11.0 x10^3/uL (4.0-11.0) Red Blood Count 5.68 x10^6/uL (3.50-5.40) Hemoglobin 15.0 g/dL (12.0-15.5) Hematocrit 46.4 % (36.0-47.0) Mean Corpuscular Volume 82 fL (79-100) Mean Corpuscular Hemoglobin 26 pg (25-35) Mean Corpuscular Hemoglobin Concent 32 g/dL (31-37) Red Cell Distribution Width 16.1 % (11.5-14.5) Platelet Count 303 x10^3/uL (140-400) Neutrophils (%) (Auto) 29 % (31-73) Lymphocytes (%) (Auto) 63 % (24-48) Monocytes (%) (Auto) 5 % (0-9) Eosinophils (%) (Auto) 2 % (0-3) Basophils (%) (Auto) 2 % (0-3) Neutrophils # (Auto) 3.2 x10^3uL (1.8-7.7) Lymphocytes # (Auto) 6.9 x10^3/uL (1.0-4.8) Monocytes # (Auto) 0.5 x10^3/uL (0.0-1.1) Eosinophils # (Auto) 0.2 x10^3/uL (0.0-0.7) Basophils # (Auto) 0.2 x10^3/uL (0.0-0.2) Segmented Neutrophils % 22 % (35-66) Lymphocytes % 55 % (24-48) Monocytes % 4 % (0-10) Eosinophils % 1 % (0-5) Basophils % 2 % (0-3) Smudge Cells Present Platelet Estimate Adequate (ADEQUATE) Prothrombin Time 10.1 SEC (9.4-11.4) Prothromb Time International Ratio 1.0 (0.9-1.1) Activated Partial Thromboplast Time 31 SEC (23-33) Troponin I Quantitative 0.112 ng/mL (0-0.055) 0.242 ng/mL (0-0.055) Urine Opiates Screen Neg (NEG) Urine Methadone Screen Neg (NEG) Urine Barbiturates Neg (NEG) Urine Phencyclidine Screen Neg (NEG) Urine Amphetamine/Methamphetamine Neg (NEG) Urine Benzodiazepines Screen Neg (NEG) Urine Cocaine Screen Neg (NEG) Urine Cannabinoids Screen Neg (NEG) Urine Ethyl Alcohol Neg (NEG) Sodium Level 147 mmol/L (136-145) Potassium Level 3.4 mmol/L (3.5-5.1) Chloride Level 111 mmol/L (98-107) Carbon Dioxide Level 28 mmol/L (21-32) Anion Gap 8 (6-14) Blood Urea Nitrogen 12 mg/dL (7-20) Creatinine 1.0 mg/dL (0.6-1.0) Estimated GFR (Cockcroft-Gault) 68.2 BUN/Creatinine Ratio 12 (6-20) Glucose Level 94 mg/dL (70-99) Calcium Level 9.1 mg/dL (8.5-10.1) Magnesium Level 2.4 mg/dL (1.8-2.4) Total Bilirubin 0.3 mg/dL (0.2-1.0) Aspartate Amino Transf (AST/SGOT) 12 U/L (15-37) Alanine Aminotransferase (ALT/SGPT) 16 U/L (14-59) Alkaline Phosphatase 120 U/L (46-116) Creatine Kinase 89 U/L (26-192) Creatine Kinase MB (Mass) 1.2 ng/mL (0.0-3.6) Creatine Kinase MB Relative Index 1.3 % (0-4) IC-Gqo-Q-Type Natriuretic Peptide 395 pg/mL (0-124) Total Protein 7.0 g/dL (6.4-8.2) Albumin 3.4 g/dL (3.4-5.0) Albumin/Globulin Ratio 0.9 (1.0-1.7) Test 04/03/18 23:45 Troponin I Quantitative 0.178 ng/mL (0-0.055) Images CXR - IMPRESSION: No acute cardiopulmonary process. EKG - SVT, non specific rate related change, prob AV yogesh tachycardia Assessment/Plan 1. 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 2. CP with elevated trop, likely demand related. Will plan for stress test in am. Check echo. 3. hypertension - resume home medications 4. hyperlipidemia - resume home medications. Plan for possible flecainide if no structural or ischemic heart disease and outpatient referral to EP for possible RFA. CHANNING JEAN MD 04/04/18 1517: CONSULT Assessment/Plan Patient seen and examined. Agree with DIRECTOR OF SALES MARKETING's assessment and plan. Patient with paroxysmal supraventricular tachycardia, presently back in sinus rhythm. 2-D echo showed normal LV systolic function. We will rule out ischemia with MPI tomorrow and start flecainide for rhythm maintenance and there is no ischemia Thank you for your consultation ELLE BALES APRN Apr 04, 2018 09:38 CHANNING JEAN MD Apr 04, 2018 15:17
[2018-04-04 10:44] VITALS: BP 118/72
[2018-04-04] MEDS ORDERED: ALBUTEROL SULFATE 8GM INHALER. IH SCH (13:15)
[2018-04-04] MEDS ORDERED: CYCLOBENZAPRINE 10 MG TABLET. PO PRN (13:45)
[2018-04-04] MEDS ORDERED: ALBUTEROL SULFATE 2.5 MG/3 ML NEBU. NEB PRN (13:45)
--- NOTE | 2018-04-04 13:48 | HP ---
ADMIT DATE: 04/03/2018 HISTORY OF PRESENT ILLNESS: The patient is a 62-year-old -[place] female patient, who apparently present with a complaint of rapid heart rate, chest burning and dyspnea and lightheadedness. Her symptom onset at rest and resolved, so she decided to come for evaluation. She apparently was awakened by this burning sensation in her chest and shortness of breath. Her symptoms occur both at rest and while exerting. She is able to walk from her house to her daughter's house for about 15 minutes without any difficulty; however, she did complain of orthopnea and paroxysmal nocturnal dyspnea. She apparently lost about 100 bound after she had gastric sleeve surgery in 03/2017. She stated that she has similar symptoms for which she was admitted to [facility] before. PAST MEDICAL HISTORY: Significant for hypertension, hyperlipidemia, sarcoidosis, obstructive sleep apnea and COPD as well as morbid obesity. PAST SURGICAL HISTORY: Significant for cholecystectomy, appendectomy, left total knee arthroplasty, total abdominal hysterectomy, bilateral salpingo-oophorectomy. She has had also esophagogastrojejunoscopy, colonoscopy, bronchoscopy and transbronchial biopsy for sarcoidosis. She had gastric sleeve surgery. She also had laser treatment of her eyes for glaucoma. ALLERGIES: She has no known drug allergies. MEDICATIONS: She is currently on following medications: She is on sulfamethoxazole trimethoprim twice a day, dicyclomine 20 mg 4 times a day, ipratropium bromide, albuterol sulfate for DuoNeb by nebulizer 4 times a day, albuterol sulfate for AccuNeb every 4 times a day, albuterol sulfate every 4 hours, cyclobenzaprine 10 mg 3 times a day, orphenadrine citrate 100 mg twice a day, atorvastatin calcium 40 mg at bedtime, meloxicam 15 mg daily, tramadol 50 mg every 6 hours, guaifenesin with codeine phosphate 5 mL every 4 hours. She is on Symbicort 160/4.5 one inhalation twice a day, Protonix 40 mg once a day, prednisone 30 mg p.o. daily, Lidoderm patch applied topically on for 12 hours and off for 12 hours. FAMILY HISTORY: She has 1 living brother, who is younger. One brother at age of 30 because of AIDS and one sister at the age of 28 because of AIDS and she was a drug abuser. One of her brothers was killed by her stepdaughter at the age of 58. SOCIAL HISTORY: She lives with her significant other between the two of them to have 8 children and 16 grandchildren. She never smoked, does not drink alcohol. 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 REVIEW OF SYSTEMS: The patient denied any blurring of vision, cataract, glaucoma or macular degeneration. Denied any earache, tinnitus or sensorineural deafness. Denied any nosebleeds, stuffy nose or postnasal drip. Denied any sore throat, sore tongue, toothache, hoarseness of voice. Denied any nausea, vomiting, diarrhea or constipation. Denied any hematemesis, melena or hematochezia. Denied any dysuria, frequency or hematuria. Did complain of chest pain, shortness of breath, orthopnea, paroxysmal nocturnal dyspnea. Did complain of palpitation, but denied any dizziness, lightheadedness, or vertigo. PHYSICAL EXAMINATION: GENERAL: On arrival to the Emergency Room, she looked well and was clearly tachypneic and tachycardic. VITAL SIGNS: Her heart rate was 182, blood pressure 145/89, temperature was 97.9, respiratory rate was 20, and oxygen saturation was 98%. HEAD, EYES, EARS, NOSE AND THROAT: Normocephalic, atraumatic. NECK: Supple. HEART: Showed normal first and second heart sounds with no gallop, rub or murmur. CHEST: Clear to auscultation. She has no crepitation, but scattered rhonchi, mostly posteriorly. ABDOMEN: Distended, soft, nontender. NEUROLOGIC: She is awake, alert, responds appropriately. All cranial nerves intact. EXTREMITIES: She moves her extremities without difficulty. She ambulates without assistance or assistive devices. LABORATORY DATA: Her lab work on admission showed a white cell count of 11,000, hemoglobin 15, hematocrit 46, MCV 82 and platelet count of 303,000 with a manual differential showed 29% polymorphs, 63% lymphocytes and 5% monocytes. Her serum sodium was 147, potassium 3.4, chloride 111, bicarbonate 28, anion gap of 8, BUN 12, creatinine 1, estimated GFR was 68 mL per minute. Her glucose was 94, calcium was 9.1, magnesium 2.4. Total bilirubin, AST, ALT were normal. Alkaline phosphatase slightly elevated. Her first set of cardiac enzymes show troponin to be 0.112. Her beta natriuretic peptide was 395. Total protein was 7, albumin was 3.4. Her prothrombin time was 10.1, INR 1, aPTT was 31. Her toxicology screen was unremarkable. Her chest x-ray showed that the cardiomediastinal silhouette is normal. Lungs are clear. There is no pneumothorax. No pleural effusion is appreciated. No acute bony abnormality, so the patient was admitted with SVT, chest pain and elevated troponin. She has multiple other medical problems including hypertension, hyperlipidemia, sarcoidosis, obstructive sleep apnea, COPD. We will do 2 more sets of cardiac enzyme. We will consult the cardiology team and decide further management accordingly. We will continue all her medication. BRADY CHO MD DR: ZHOU/shanti JOB#: [id number] / [id number]
--- NOTE | 2018-04-04 14:25 | CARD ---
MR#: [id number] Date of Study: 04/04/2018 Ordering Physician: ELLE BALES, Referring Physician: BRADY CHO Tech: SAULO Wolfe APPROVED REPORT EXAM: Two-dimensional and M-mode echocardiogram with Doppler and color Doppler. Other Information Quality : FairHR: 84bpm Technically limited study due to body habitus. INDICATION SVT RISK FACTORS Obesity 2D DIMENSIONS RVDd3.4 (2.9-3.5cm)Left Atrium(2D)2.6 (1.6-4.0cm) IVSd1.0 (0.7-1.1cm)Aortic Root(2D)2.9 (2.0-3.7cm) LVDd3.8 (3.9-5.9cm)LVOT Diameter2.0 (1.8-2.4cm) PWd1.3 (0.7-1.1cm)LVDs2.6 (2.5-4.0cm) FS (%) 32.9 %SV39.1 ml LVEF(%)62.2 (>50%) Aortic Valve AoV Peak Chris.159.4cm/sAoV VTI29.3cm AO Peak GR.10.2mmHgLVOT Peak Chris.118.2cm/s LVOT VTI 20.92cmAO Mean GR.5mmHg JUDITH (VMAX)2.44zs5IAA (VTI)2.15cm2 Mitral Valve MV E Qjbjddon09.6cm/sMV DECEL [id number] MV A Rdifbsku60.6cm/sE/A Ratio1.0 Pulmonary Valve PV Peak Emfrmnbp181.7cm/sPV Peak Grad.5mmHg Tricuspid Valve TR P. Hvzwffiv030uy/sRAP OWIQTIJG2jbPu TR Peak Gr.35fjZxXJHU16hiHm LEFT VENTRICLE The left ventricle is normal size. There is mild LVPW hypertrophy. The left ventricular systolic func tion is normal and the ejection fraction is within normal range. EF 65% There is normal LV segmental wall motion. The left ventricular diastolic function and filling is normal for age. RIGHT VENTRICLE The right ventricle is normal size. The right ventricular systolic function is normal. ATRIA The left atrium size is normal. The right atrium size is normal. The interatrial septum is intact wit h no evidence for an atrial septal defect or patent foramen ovale as noted on 2-D or Doppler imaging. AORTIC VALVE The aortic valve is mildly thickened but opens well. Doppler and Color Flow revealed no significant a ortic regurgitation. There is no significant aortic valvular stenosis. There is no aortic valvular ve getation. MITRAL VALVE The mitral valve is thickened but opens well. There is no evidence of mitral valve prolapse. There is no mitral valve stenosis. Doppler and Color Flow revealed no mitral valve regurgitation noted. TRICUSPID VALVE The tricuspid valve leaflets are thickened , but open well. Doppler and Color Flow revealed trace tri cuspid regurgitation. There is mild pulmonary hypertension. The PA pressure was estimated at 13 mmHg. There is no tricuspid valve prolapse or vegetation. There is no tricuspid valve stenosis. PULMONIC VALVE The pulmonic valve is not well visualized. Doppler and Color Flow revealed no pulmonic valvular regur gitation. There is no pulmonic valvular stenosis. GREAT VESSELS The aortic root is normal in size. The IVC is normal in size and collapses >50% with inspiration. PERICARDIAL EFFUSION There is no pleural effusion. There is no evidence of significant pericardial effusion. Critical Notification Critical Value: No <Conclusion> The left ventricular systolic function is normal and the ejection fraction is within normal range. EF 65% There is normal LV segmental wall motion. Signed by : Jose Romero, Electronically Approved : 04/04/2018 14:24:54
[2018-04-04] MEDS: CYCLOBENZAPRINE 10 MG TABLET. PO SCH ×2 (14:40→20:48)
[2018-04-04] MEDS: traMADol 50 MG TABLET PO SCH ×2 (14:40→20:47)
[2018-04-04 15:14] VITALS: BP 130/83
[2018-04-04 19:19] VITALS: BP 136/81
[2018-04-04] MEDS: LACTOBACILLUS RHAMNOSUS GG 1 CAPSULE. PO SCH (20:47)
[2018-04-04] MEDS ORDERED: ATORVASTATIN CALCIUM 20 MG TABLET PO SCH (21:00)
[2018-04-04 22:19] VITALS: BP 111/58
--- NOTE | 2018-04-04 22:41 | PN ---
DATE: 04/04/2018 SUBJECTIVE: The patient is resting slightly propped up in bed, eating her lunch comfortably, in no apparent distress. She continues to complain of mild burning sensation in her chest as well as orthopnea. Denied any nausea or vomiting. Denied any diaphoresis. She has had 2 more sets of cardiac enzyme showed the troponin has risen to 0.242 and came down to 0.178. She was seen in consultation by the Cardiology team and had an echocardiogram and nuclear stress test was recommended by the Cardiology team. PHYSICAL EXAMINATION: GENERAL: When I examined her, she looked well and was clearly in no apparent respiratory distress. No pallor, jaundice, cyanosis, or thyromegaly. No jugular venous distension. No lower limb edema. VITAL SIGNS: Her heart rate was 95, blood pressure 118/72, temperature was 97.4, respiratory rate 22 and oxygen saturation was 97% on 2 liters of oxygen. HEAD, EYES, EARS, NOSE AND THROAT: Normocephalic, atraumatic. NECK: Supple. HEART: Showed normal first and second sounds. No gallop, rub or murmur. CHEST: Clear to auscultation. No crepitation or rhonchi. ABDOMEN: Distended, soft, nontender. No guarding or rigidity. No organomegaly. Hernial orifice intact. Bowel sounds normal. NEUROLOGIC: She is awake, alert, responding appropriately. Cranial nerves intact. She moves extremities without difficulty. LABORATORY DATA: This morning showed that her 2 more sets of cardiac enzymes that went up to 0.242 and 0.178. She has had an echocardiogram on the first part of the stress test. Tomorrow, she will have the other part of stress test. IMPRESSION: In summary, this is a 62-year-old -[place] Citizen female patient with acute chest pain with mildly elevated troponin. 2. Supraventricular tachycardia. Other medical problems include hypertension, hyperlipidemia, sarcoidosis, morbid obesity, obstructive sleep apnea, chronic obstructive pulmonary disease. 3. She has also lymphocytosis. I will repeat her lab work. 3. She has also hypokalemia. I will replenish her potassium and check her fasting lipid profile tomorrow. BRADY CHO MD DR: ZHOU/shanti JOB#: [id number] / [id number]
[2018-04-05] MEDS: traMADol 50 MG TABLET PO SCH ×4 (01:15→14:26)
[2018-04-05 05:21] VITALS: BP 143/82
[2018-04-05] MEDS: IPRATRPIUM/ALBUTEROL 0.5/2.5MG 3 ML NEBU. NEB SCH ×3 (05:27→15:22)
[2018-04-05 07:17] LABS: HEMATOCRIT 42.1 % (36.0-47.0); HEMOGLOBIN 13.6 g/dL (12.0-15.5); RED BLOOD COUNT 5.22 x10^6/uL (3.50-5.40); RED CELL DISTRIBUTION WIDTH 15.9 % (11.5-14.5); WHITE BLOOD COUNT 6.8 x10^3/uL (4.0-11.0)
[2018-04-05 07:20] LABS: CALCIUM 9.3 mg/dL (8.5-10.1); GFR 68.2; POTASSIUM 3.8 mmol/L (3.5-5.1)
[2018-04-05] MEDS: BUDESONIDE 0.5 MG/2 ML NEBU NEB SCH (08:00)
[2018-04-05] MEDS: SMZ/TMP 800/160MG TABLET. PO SCH (08:04)
[2018-04-05] MEDS: LACTOBACILLUS RHAMNOSUS GG 1 CAPSULE. PO SCH (08:04)
[2018-04-05] MEDS: PANTOPRAZOLE 40 MG TABLET. PO SCH (08:04)
[2018-04-05] MEDS: LIDOCAINE (700MG/PATCH) PATCH. TP SCH (08:05)
[2018-04-05] MEDS: CYCLOBENZAPRINE 10 MG TABLET. PO SCH ×2 (08:05→14:25)
[2018-04-05] MEDS: MELOXICAM 15 MG TABLET. PO SCH (08:05)
--- NOTE | 2018-04-05 09:16 | PDOC ---
PROGRESS NOTES Diagnosis Problem Problems Medical Problems: (1) Acute chest pain Status: Acute (2) Chest pain Status: Acute (3) Elevated troponin Status: Acute (4) SVT (supraventricular tachycardia) Status: Acute Assessment Problems Medical Problems: (1) Acute chest pain Status: Acute (2) Chest pain Status: Acute (3) Elevated troponin Status: Acute (4) SVT (supraventricular tachycardia) Status: Acute 1. 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 Normal echo. Await stress test results. If no abnormalities, suggest start flecainide and plan for possible EP evaluation as outpatient. 2. CP with elevated trop, likely demand related. normal LVEF and wall motion by echo. Await stress results from this am. 3. hypertension - blood pressure moderately elevated. suggest await MPI results, if normal add CCB, if abnormal add BB. 4. hyperlipidemia - continue statin Subjective no chest pain, dyspnea, lightheadedness or palpitations. no new arrhythmias. Objective Echocardiogram.- The left ventricular systolic function is normal and the ejection fraction is within normal range. EF 65% There is normal LV segmental wall motion. Vital Signs Date Time Temp Pulse Resp B/P (MAP) Pulse Ox O2 Delivery O2 Flow Rate FiO2 04/05/18 08:13 Nasal Cannula 2.0 04/05/18 08:04 98 04/05/18 05:21 99.4 74 20 143/82 (102) Intake and Output 04/05/18 07:00 Intake Total 1520 ml Balance 1520 ml Intake Oral 1520 ml # Voids 4 Abdomen: Normal bowel sounds, Soft Heart: Regular rate, Normal S1, Normal S2, No murmurs Extremities: No cyanosis, No edema, Normal pulses General: Alert, Oriented X3, Cooperative, No acute distress Lungs: Clear to auscultation, Normal air movement Neuro: Normal speech, Strength at 5/5 X4 ext Psych/Mental Status: Mental status NL, Mood NL Review of Relevant I have reviewed the following items richie (where applicable) has been applied. Labs Laboratory Tests Test 04/03/18 16:30 04/03/18 17:32 04/03/18 19:17 04/03/18 21:04 White Blood Count 11.0 x10^3/uL (4.0-11.0) Red Blood Count 5.68 x10^6/uL (3.50-5.40) Hemoglobin 15.0 g/dL (12.0-15.5) Hematocrit 46.4 % (36.0-47.0) Mean Corpuscular Volume 82 fL (79-100) Mean Corpuscular Hemoglobin 26 pg (25-35) Mean Corpuscular Hemoglobin Concent 32 g/dL (31-37) Red Cell Distribution Width 16.1 % (11.5-14.5) Platelet Count 303 x10^3/uL (140-400) Neutrophils (%) (Auto) 29 % (31-73) Lymphocytes (%) (Auto) 63 % (24-48) Monocytes (%) (Auto) 5 % (0-9) Eosinophils (%) (Auto) 2 % (0-3) Basophils (%) (Auto) 2 % (0-3) Neutrophils # (Auto) 3.2 x10^3uL (1.8-7.7) Lymphocytes # (Auto) 6.9 x10^3/uL (1.0-4.8) Monocytes # (Auto) 0.5 x10^3/uL (0.0-1.1) Eosinophils # (Auto) 0.2 x10^3/uL (0.0-0.7) Basophils # (Auto) 0.2 x10^3/uL (0.0-0.2) Segmented Neutrophils % 22 % (35-66) Lymphocytes % 55 % (24-48) Monocytes % 4 % (0-10) Eosinophils % 1 % (0-5) Basophils % 2 % (0-3) Smudge Cells Present Platelet Estimate Adequate (ADEQUATE) Prothrombin Time 10.1 SEC (9.4-11.4) Prothromb Time International Ratio 1.0 (0.9-1.1) Activated Partial Thromboplast Time 31 SEC (23-33) Troponin I Quantitative 0.112 ng/mL (0-0.055) 0.242 ng/mL (0-0.055) Urine Opiates Screen Neg (NEG) Urine Methadone Screen Neg (NEG) Urine Barbiturates Neg (NEG) Urine Phencyclidine Screen Neg (NEG) Urine Amphetamine/Methamphetamine Neg (NEG) Urine Benzodiazepines Screen Neg (NEG) Urine Cocaine Screen Neg (NEG) Urine Cannabinoids Screen Neg (NEG) Urine Ethyl Alcohol Neg (NEG) Sodium Level 147 mmol/L (136-145) Potassium Level 3.4 mmol/L (3.5-5.1) Chloride Level 111 mmol/L (98-107) Carbon Dioxide Level 28 mmol/L (21-32) Anion Gap 8 (6-14) Blood Urea Nitrogen 12 mg/dL (7-20) Creatinine 1.0 mg/dL (0.6-1.0) Estimated GFR (Cockcroft-Gault) 68.2 BUN/Creatinine Ratio 12 (6-20) Glucose Level 94 mg/dL (70-99) Calcium Level 9.1 mg/dL (8.5-10.1) Magnesium Level 2.4 mg/dL (1.8-2.4) Total Bilirubin 0.3 mg/dL (0.2-1.0) Aspartate Amino Transf (AST/SGOT) 12 U/L (15-37) Alanine Aminotransferase (ALT/SGPT) 16 U/L (14-59) Alkaline Phosphatase 120 U/L (46-116) Creatine Kinase 89 U/L (26-192) Creatine Kinase MB (Mass) 1.2 ng/mL (0.0-3.6) Creatine Kinase MB Relative Index 1.3 % (0-4) OY-Jit-V-Type Natriuretic Peptide 395 pg/mL (0-124) Total Protein 7.0 g/dL (6.4-8.2) Albumin 3.4 g/dL (3.4-5.0) Albumin/Globulin Ratio 0.9 (1.0-1.7) Thyroid Stimulating Hormone (TSH) 1.318 uIU/mL (0.358-3.740) Test 04/03/18 23:45 04/05/18 06:24 Troponin I Quantitative 0.178 ng/mL (0-0.055) White Blood Count 6.8 x10^3/uL (4.0-11.0) Red Blood Count 5.22 x10^6/uL (3.50-5.40) Hemoglobin 13.6 g/dL (12.0-15.5) Hematocrit 42.1 % (36.0-47.0) Mean Corpuscular Volume 81 fL (79-100) Mean Corpuscular Hemoglobin 26 pg (25-35) Mean Corpuscular Hemoglobin Concent 32 g/dL (31-37) Red Cell Distribution Width 15.9 % (11.5-14.5) Platelet Count 235 x10^3/uL (140-400) Sodium Level 145 mmol/L (136-145) Potassium Level 3.8 mmol/L (3.5-5.1) Chloride Level 109 mmol/L (98-107) Carbon Dioxide Level 29 mmol/L (21-32) Anion Gap 7 (6-14) Blood Urea Nitrogen 9 mg/dL (7-20) Creatinine 1.0 mg/dL (0.6-1.0) Estimated GFR (Cockcroft-Gault) 68.2 Glucose Level 89 mg/dL (70-99) Calcium Level 9.3 mg/dL (8.5-10.1) Medications Current Medications Adenosine (Adenocard) 12 mg 1X ONCE IV ; Start 04/03/18 at 17:00; Stop at 17:01; Status DC Sodium Chloride 1,000 ml @ 1,000 mls/hr Q1H IV Last administered on 04/03/18at 16:44; Start 04/03/18 at 16:29; Stop 04/03/18 at 17:28; Status DC Adenosine (Adenocard) 6 mg 1X ONCE IV Last administered on 04/03/18at 16:47; Start 04/03/18 at 17:00; Stop 04/03/18 at 17:01; Status DC Aspirin (Children'S Aspirin) 324 mg 1X ONCE PO Last administered on 04/03/18at 17:16; Start 04/03/18 at 17:15; Stop 04/03/18 at 17:16; Status DC Albuterol/ Ipratropium (Duoneb) 3 ml RTQID NEB Last administered on 04/05/18at 05:27; Start 04/04/18 at 08:00 Trimethoprim/ Sulfamethoxazole (Bactrim Ds) 1 tab BID PO Last administered on at 08:04; Start 04/04/18 at 09:00 Cyclobenzaprine HCl (Flexeril) 10 mg TID PO Last administered on 04/04/18at 08: 34; Start 04/04/18 at 09:00; Stop 04/04/18 at 13:43; Status DC Dicyclomine HCl (Bentyl) 20 mg PRN QID PRN PO abdominal pain/cramps, nausea; Start 04/04/18 at 02:00 Lidocaine (Lidoderm) 1 patch DAILY TP Last administered on 04/05/18 08:05; Start 04/04/18 at 09:00 Pantoprazole Sodium (Protonix) 40 mg DAILYAC PO Last administered on 04/05/18 08:04; Start 04/04/18 at 07:30 Atorvastatin Calcium (Lipitor) 40 mg QHS PO Last administered on 04/04/18at 20: 47; Start 04/04/18 at 21:00 Meloxicam (Mobic) 15 mg DAILY PO Last administered on 04/05/18 08:05; Start at 09:00 Budesonide (Pulmicort) 0.5 mg RTBID NEB Last administered on 04/04/18at 19:47; Start 04/04/18 at 08:00 Albuterol Sulfate (Ventolin Hfa Inhaler) 1 puff PRN Q4HRS IH ; Start 04/04/18 at 13:15; Stop 04/04/18 at 13:40; Status DC Cyclobenzaprine HCl (Flexeril) 10 mg PRN TID PRN PO MUSCLE SPASMS; Start at 13:45 Tramadol HCl (Ultram) 50 mg Q6H PO Last administered on 04/05/18at 08:04; Start 04/04/18 at 13:15 Albuterol Sulfate (Ventolin) 2.5 mg PRN Q4HRS PRN NEB SHORTNESS OF BREATH; Start 04/04/18 at 13:45 Cyclobenzaprine HCl (Flexeril) 5 mg TID PO Last administered on 04/05/18at 08:05 ; Start 04/04/18 at 14:00 Lactobacillus Rhamnosus (Culturelle) 1 cap BID PO Last administered on 08:04; Start 04/04/18 at 21:00 Regadenoson (Lexiscan) 0.4 mg 1X ONCE IV ; Start 04/05/18 at 09:30; Stop at 09:31 Active Scripts Active Orphenadrine Citrate 100 Mg Tablet.er 1 Tab PO BID PRN Lidocaine 1 Each Adh..patch 1 Each TP DAILY Cyclobenzaprine Hcl 5 Mg Tablet 1 Tab PO TID Duoneb 0.5-3(2.5) Mg/3 Ml (Albuterol/Ipratropium) 3 Ml Ampul.neb 3 Ml NEB QID Guaifenesin-Codeine Syrup (Guaifenesin/Codeine Phosphate) 118 Ml Liquid 5 Ml PO Q4-6HRS PRN Bactrim Ds Tablet (Sulfamethoxazole/Trimethoprim) 1 Each Tablet 1 Each PO BID Cyclobenzaprine Hcl 10 Mg Tablet 1 Tab PO TID PRN Bentyl (Dicyclomine Hcl) 20 Mg Tablet 1 Tab PO QID PRN Protonix (Pantoprazole Sodium) 40 Mg Tablet.dr 1 Tab PO DAILY Reported Prednisone 20 Mg Tablet 1.5 Tab PO DAILY Proair Hfa Inhaler (Albuterol Sulfate) 8.5 Gm Hfa.aer.ad IH PRN Q4HRS Atorvastatin Calcium 40 Mg Tablet PO DAILY Mobic (Meloxicam) 15 Mg Tablet PO DAILY Symbicort 160-4.5 Mcg Inhaler (Budesonide/Formoterol Fumarate) 10.2 Gm Hfa.aer.ad IH BID Ultram (Tramadol HCl) 50 Mg Tablet PO Accuneb (Albuterol Sulfate) 0.63 Mg/3 Ml Vial.neb IH QID Vitals/I & O Vital Sign - Last 24 Hours 04/04/18 04/04/18 04/04/18 04/04/18 10:44 11:06 14:40 15:14 Temp 98.9 Pulse 95 87 Resp 20 B/P (MAP) 118/72 (87) 130/83 (99) Pulse Ox 96 97 97 95 O2 Delivery Room Air Nasal Cannula Room Air Nasal Cannula O2 Flow Rate 2.0 2.0 04/04/18 04/04/18 04/04/18 04/04/18 16:03 19:19 19:48 19:52 Temp 98.2 Pulse 90 Resp 20 B/P (MAP) 136/81 (99) Pulse Ox 96 94 98 98 O2 Delivery Nasal Cannula Room Air Room Air Room Air O2 Flow Rate 2.0 0.0 0.0 04/04/18 04/04/18 04/04/18 04/05/18 20:00 20:47 22:19 03:24 Temp 97.6 Pulse 81 Resp 20 18 20 B/P (MAP) 111/58 (75) Pulse Ox 98 95 95 O2 Delivery Nasal Cannula Nasal Cannula Nasal Cannula Nasal Cannula O2 Flow Rate 2.0 2.0 2.0 2.0 04/05/18 04/05/18 04/05/18 04/05/18 04:36 05:21 05:27 08:04 Temp 99.4 Pulse 74 Resp 18 20 B/P (MAP) 143/82 (102) Pulse Ox 95 93 98 98 O2 Delivery Nasal Cannula Nasal Cannula Room Air Nasal Cannula O2 Flow Rate 2.0 2.0 0.0 2.0 04/05/18 08:13 O2 Delivery Nasal Cannula O2 Flow Rate 2.0 Intake and Output 04/04/18 04/04/18 04/05/18 15:00 23:00 07:00 Intake Total 600 ml 720 ml 200 ml Balance 600 ml 720 ml 200 ml ELLE BALES [employer]DEL [employer]KER Apr 05, 2018 09:16
[2018-04-05] MEDS ORDERED: REGADENOSON 0.4 MG/5 ML DISP.SYRIN. IV ONE (09:30)
[2018-04-05 10:32] VITALS: BP 161/96
--- NOTE | 2018-04-05 12:13 | RAD ---
MR#: [id number] Date of Study: 04/04/2018 Ordering Physician: ELLE BALES, Referring Physician: CAROLYNE CASTLE Tech: RT Reyna GaR) (N) APPROVED REPORT Test Type: Pharmacological Stress Nurse/Tech: RT Harmeet (Shelley) (N) Test Indications: chest pain, SVT Cardiac History: family history of CAD Medications: see EHR Medical History: COPD, Hypertension Resting ECG: sinus rhythm, nonspecific changes Resting Heart Rate: 63 bpm Resting Blood Pressure: 148/81mmHg Pretest Chest Pain: None Nurse/Tech Notes Consent: The procedure was explained to the patient in lay terms. Informed consent was witnessed. Shady eout was entered into [facility]. History and Stress Test performed by RT Amber Ga) (N) Pharm. Details Pharmacologic stress testing was performed using 0.4mg per 5ml of regadenoson given intravenously ove r 7-10 seconds. POST EXERCISE Reason for Termination: Infusion complete Max HR: 99 bpm Max Blood Pressure: 137/84mmHg Chest Pain: No. INTERPRETATION Stress EKG Conclusion: No acute changes were noted. Imaging Protocol IMAGE PROTOCOL: Rest Tc-99m/stress Tc-99m 2 days Rest: Stress: Viability: Radiopharm.Tc99m [id number] Sestamibi Dose34.1mCi 33.2mCi Duration 10min. 10min. Img Date 04/04/2018 04/05/2018 Inj-Img [id number]. 60min. Rest Admin Site:IV - Right HandAdministrator: RT Harmeet (Shelley)(N) Stress Admin Site: IV - Right HandAdministrator: RT Harmeet (Shelley)(N) STRESS DATA End Diast. Vol.94.0mlAv. Heart Rate88.0bpm LVEDV index BSA2.0mlCardiac Output0.1L/min End Syst. Vol.25.0mlCO Index BSA6.1L/min LVESV index BSA0.0mlMyocardial Xedd691.0g Eject. Jyxkamia43.0% Stress Rates Pk. Fill Rate3.25EDV/secLVtime Pk. Fill 173.64msec Pk. Empty Rate4.91ESV/secLVtime Pk. Lkxvs903.46msec 1/3 Pk. Fill1.18EDV/sec Stress Scores Regional WT0.00Summed WT2.00 Regional WM0.00Summed WM1.00 The rest and stress images show normal perfusion, normal contraction and thickening. LV Perf. Quant 17 Seg. SSS3.00 17 Seg. SRS3.00 17 Seg. SDS1.00 Stress Defect Extent (% LAD)0.00Rest Defect Extent (% LAD)0.00Rev. Defect Extent (% LAD)0.00 Stress Defect Extent (% LCX) 15.00Rest Defect Extent (% LCX)0.00Rev. Defect Extent (% LCX)1.30 Stress Defect Extent (% RCA)0.00Rest Defect Extent (% RCA)13.30Rev. Defect Extent (% RCA)0.00 Stress Defect Extent (% ASTRID)2.60Rest Defect Extent (% ASTRID)2.60Rev. Defect Extent (% ASTRID)0.20 Other Information Quality:Good Risk Assessment: Low Risk Conclusion 1. No evidence of EKG changes with stress testing. 2. Normal perfusion at stress/rest. 3. Low risk study. 4. EF > 60%. Signed by : Jose Romero, Electronically Approved : 04/05/2018 12:12:57
[2018-04-05 14:48] VITALS: BP 143/86
[2018-04-05] MEDS ORDERED: FLEC100T PO (17:18)
[2018-04-05] MEDS ORDERED: METO25TA4 PO (17:18)
--- NOTE | 2018-04-05 18:08 | DS ---
DATE OF DISCHARGE: 04/03/2018 HOSPITAL COURSE: The patient is a 62-year-old -[place] female patient, who was admitted with a complaint of rapid heart rate, chest burning, dyspnea, and lightheadedness. She was diagnosed with supraventricular tachycardia and her troponin was elevated; however, the crabber felt that this is demand ischemia because of tachycardia as her echocardiogram showed normal left ventricular ejection fraction and wall motion. Her nuclear stress test showed that the patient has no evidence of EKG changes with stress testing, normal perfusion at stress and rest, low risk study and ejection fraction of more than 60%. The crabber started her on metoprolol and flecainide, and the plan is for her to continue with this treatment and if this fails, the next option is to consider atrial ablation as an outpatient. PHYSICAL EXAMINATION: GENERAL: When I saw her this afternoon, she looked well and was clearly in no apparent respiratory distress. No pallor, jaundice, cyanosis, or thyromegaly. No jugular venous distension. No lower limb edema. VITAL SIGNS: Her heart rate was 76, blood pressure was 143/86, temperature was 97.7, respiratory rate 20, and oxygen saturation was 93% on 2 liters of oxygen. HEAD, EYES, EARS, NOSE AND THROAT: Showed normocephalic, atraumatic. NECK: Supple. HEART: Showed normal first and second heart sounds with no gallop, rub or murmur. CHEST: Clear to auscultation. No crepitation or rhonchi. ABDOMEN: Distended, soft, nontender. No guarding or rigidity. No organomegaly. Hernial orifice intact. Bowel sounds normal. NEUROLOGIC: She is awake, alert, and responding appropriately. Cranial nerves intact. She moves her extremities without difficulty. LABORATORY DATA: Her lab work this morning showed a white cell count of 6800, hemoglobin 13.6, hematocrit 42, MCV was 81 and platelet count of 235,000. Serum sodium was 145, potassium 3.8, chloride 109, bicarbonate 29, anion gap of 7, BUN 9, creatinine 1, estimated GFR was 68 mL per minute. Her glucose was 89, calcium was 9.3. Her prothrombin time was 10.1, INR of 1, and aPTT was 31. Toxic screen was essentially negative. Her echocardiogram showed that she has normal left ventricular systolic function and ejection fraction is within normal range about 65%. She has normal left ventricular segmental wall motion and her nuclear stress test showed that she has no evidence of EKG changes with stress testing, normal perfusion at stress and rest, low risk study, with ejection fraction of more than 60%. DISCHARGE MEDICATIONS: She was discharged home to continue on following medication: Albuterol sulfate 1 inhalation 4 times a day, albuterol sulfate for ProAir 1 inhalation every 4 hours, atorvastatin calcium 40 mg daily, Symbicort 160/4.5 one inhalation twice a day, cyclobenzaprine 10 mg 3 times a day, flecainide 50 mg twice a day, guaifenesin/codeine syrup 5 mL every 4 hours, DuoNeb 4 times a day, Lidoderm patch topically once a day, meloxicam for Mobic 15 mg daily, metoprolol 25 mg twice a day, orphenadrine citrate 100 mg twice a day, Protonix 40 mg daily, prednisone 30 mg daily, tramadol or Ultram 50 mg every 6 hours. FINAL DISCHARGE DIAGNOSES: 1. 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 Her echo is normal. Stress test is normal. The patient was started on flecainide and metoprolol. If recurred, she will be considered for elective surgical evaluation and possible ablation and chest pain with elevated troponin, likely demand ischemia. She has normal left ventricular ejection fraction, normal wall motion by echo. Stress test was also normal. 2. Hypertension, well controlled. 3. Hyperlipidemia. The patient should follow with the Cardiology team and obviously if her tachycardia recurred, she would be considered for atrial ablation. BRADY CHO MD DR: ZHOU/shanti JOB#: [id number] / [id number]
[2018-04-05] MEDS ORDERED: FLECAINIDE 50 MG TABLET. PO SCH (21:00)
== END 2018-04-05 18:00 | disposition home or self-care (01) | DRG 310 ==
LOC: ER 16:05 → 1 SOUTH 17:54 → ER 18:52
PROVIDERS: ADMIT Internal Medicine; ATTEND Internal Medicine
PROC: 4A02XM4 Measurement of Cardiac Total Activity, External Approach (ICD-10-PCS; principal; 2018-04-05)
PROC: 3E073KZ Introduction of Other Diagnostic Substance into Coronary Artery, Percutaneous Approach (ICD-10-PCS; 2018-04-05)
DX: I47.1 Supraventricular tachycardia (principal); E87.6 Hypokalemia; D86.9 Sarcoidosis, unspecified; J44.9 Chronic obstructive pulmonary disease, unspecified; F41.9 Anxiety disorder, unspecified; E11.9 Type 2 diabetes mellitus without complications; E66.01 Morbid (severe) obesity due to excess calories; M19.90 Unspecified osteoarthritis, unspecified site; Z96.652 Presence of left artificial knee joint; G47.33 Obstructive sleep apnea (adult) (pediatric); E78.5 Hyperlipidemia, unspecified; H40.9 Unspecified glaucoma; I10 Essential (primary) hypertension; K21.9 Gastro-esophageal reflux disease without esophagitis; Z79.899 Other long term (current) drug therapy; Z83.0 Family history of human immunodeficiency virus [HIV] disease; Z68.35 Body mass index [BMI] 35.0-35.9, adult; Z82.49 Family history of ischemic heart disease and other diseases of the circulatory system; Z90.49 Acquired absence of other specified parts of digestive tract; Z90.710 Acquired absence of both cervix and uterus; Z98.84 Bariatric surgery status
CPT/HCPCS: 36415; 71045; 78452; 80048; 80053; 80061; 80307; 82553; 83735; 83880; 84443; 84484; 85007; 85025; 85027; 85610; 85730; 93005; 93017; 93306; 94640; 96374; 96375; 96376; A9500; J0153; J2785; J7620; J7626; 99291-25; G0479; J7030

== ENCOUNTER 2018-05-07 12:37 | Emergency (ER) | payer OTHER ==
[~2018-05-07] VITALS: Ht 170.2 cm; Wt 104.7 kg
[~2018-05-07 12:37] MED LIST changes: +FLEC100T PO; +METO25TA4 PO
[2018-05-07] MEDS ORDERED: IV NORMAL SALINE 1,000ML 1,000 ML IV ONE (13:00)
[2018-05-07 13:07] LABS: BASO # 0.2 x10^3/uL (0.0-0.2); BASO % 2 % (0-3); EOS # 0.4 x10^3/uL (0.0-0.7); EOS % 4 % (0-3); HEMATOCRIT 43.7 % (36.0-47.0); HEMOGLOBIN 14.3 g/dL (12.0-15.5); LYMPH # 4.8 x10^3/uL (1.0-4.8); LYMPH % 47 % (24-48); MEAN CORPUSCULAR HEMOGLOBIN 27 pg (25-35); MEAN CORPUSCULAR HGB CONC 33 g/dL (31-37); MEAN CORPUSCULAR VOLUME 81 fL (79-100); MONO # 0.5 x10^3/uL (0.0-1.1); MONO % 5 % (0-9); NEUT # 4.5 x10^3uL (1.8-7.7); NEUT % 44 % (31-73); PLATELET COUNT 259 x10^3/uL (140-400); RED BLOOD COUNT 5.39 x10^6/uL (3.50-5.40); RED CELL DISTRIBUTION WIDTH 16.3 % (11.5-14.5); WHITE BLOOD COUNT 10.2 x10^3/uL (4.0-11.0)
[2018-05-07 13:15] LABS: ALBUMIN 3.5 g/dL (3.4-5.0); CALCIUM 9.3 mg/dL (8.5-10.1); GFR 68.2; TOTAL BILIRUBIN 0.3 mg/dL (0.2-1.0); TOTAL PROTEIN 7.1 g/dL (6.4-8.2)
[2018-05-07 13:16] LABS: POTASSIUM 3.9 mmol/L (3.5-5.1)
--- NOTE | 2018-05-07 13:40 | PHYS DOC ---
Past History Past Medical History: Anxiety, Asthma, COPD, Other Additional Past Medical Histor: sarcoidosis Past Surgical History: Appendectomy, Cholecystectomy, Gastric Bypass, Hysterectomy, Other Smoking: Non-smoker Alcohol Use: None Drug Use: None Adult General Chief Complaint Chief Complaint: RAPID HEART RATE HPI HPI 62-year-old female presents with rapid heart rate. The patient has a known arrhythmia and sees Dr. Romero, communications programmer. The patient has been instructed to start taking her blood pressure daily. She is also instructed to take her blood pressure she starts to feel funny. When the patient's heart rate become his rapid she gets diaphoretic and felt short of breath. She does not feel the palpitations. Patient was feeling completely normal yesterday she was feeling fine she woke up this morning. Around lunchtime the patient began to feel her high heart rate symptoms. She checked her blood pressure which was okay , but her heart rate was in the 160s. She repeated the test and her heart rate was 154. She had been instructed that if her heart rate was fast like that she should come to the emergency room. The patient follows directions. On arrival, the patient states that the diaphoresis and shortness of breath was improving. She denies any central chest pain. She denies fever or chills. She has been taking her medications however she did not take her morning meds till she felt symptomatic as she forgot to take them early this morning. Review of Systems Review of Systems Constitutional: Denies fever or chills [] Eyes: Denies change in visual acuity, redness, or eye pain [] HENT: Denies nasal congestion or sore throat [] Respiratory: Denies cough or shortness of breath [] Cardiovascular: No additional information not addressed in HPI [] GI: Denies abdominal pain, nausea, vomiting, bloody stools or diarrhea [] : Denies dysuria or hematuria [] Musculoskeletal: Denies back pain or joint pain [] Integument: Denies rash or skin lesions [] Neurologic: Denies headache, focal weakness or sensory changes [] Endocrine: Denies polyuria or polydipsia [] All other systems were reviewed and found to be within normal limits, except as documented in this note. Current Medications Current Medications Current Medications Medications (Trade) Dose Ordered Sig/Sauol Start Time Stop Time Status Last Admin Dose Admin Sodium Chloride 1,000 ml @ 1,000 mls/hr 1X ONCE 05/07/18 13:00 05/07/18 13:59 05/07/18 13:15 1,000 MLS/HR Allergies Allergies Allergies Coded Allergies Type Severity Reaction Last Updated Verified No Known Drug Allergies 01/04/16 No Physical Exam Physical Exam Constitutional: Well developed, obese, well nourished, no acute distress, non- toxic appearance. [] HENT: Normocephalic, atraumatic, bilateral external ears normal, oropharynx moist, no oral exudates, nose normal. [] Eyes: PERRLA, EOMI, conjunctiva normal, no discharge. [] Neck: Normal range of motion, no tenderness, supple, no stridor. [] Cardiovascular:Heart rate regular rhythm, no murmur [] Lungs & Thorax: Bilateral breath sounds with mild diffuse wheezing[] Abdomen: Bowel sounds normal, soft, no tenderness, no masses, no pulsatile masses. [] Skin: Warm, dry, no erythema, no rash. [] Back: No tenderness, no CVA tenderness. [] Extremities: No tenderness, no cyanosis, no clubbing, ROM intact, no edema. [] Neurologic: Alert and oriented X 3, normal motor function, normal sensory function, no focal deficits noted. [] Psychologic: Affect normal, judgement normal, mood normal. [] Current Patient Data Vital Signs Vital Signs Date Time Temp Pulse Resp B/P (MAP) Pulse Ox O2 Delivery O2 Flow Rate FiO2 05/07/18 12:37 98.2 148 20 97 Room Air Lab Results Laboratory Tests Test 05/07/18 12:42 White Blood Count 10.2 x10^3/uL (4.0-11.0) Red Blood Count 5.39 x10^6/uL (3.50-5.40) Hemoglobin 14.3 g/dL (12.0-15.5) Hematocrit 43.7 % (36.0-47.0) Mean Corpuscular Volume 81 fL (79-100) Mean Corpuscular Hemoglobin 27 pg (25-35) Mean Corpuscular Hemoglobin Concent 33 g/dL (31-37) Red Cell Distribution Width 16.3 % (11.5-14.5) H Platelet Count 259 x10^3/uL (140-400) Neutrophils (%) (Auto) 44 % (31-73) Lymphocytes (%) (Auto) 47 % (24-48) Monocytes (%) (Auto) 5 % (0-9) Eosinophils (%) (Auto) 4 % (0-3) H Basophils (%) (Auto) 2 % (0-3) Neutrophils # (Auto) 4.5 x10^3uL (1.8-7.7) Lymphocytes # (Auto) 4.8 x10^3/uL (1.0-4.8) Monocytes # (Auto) 0.5 x10^3/uL (0.0-1.1) Eosinophils # (Auto) 0.4 x10^3/uL (0.0-0.7) Basophils # (Auto) 0.2 x10^3/uL (0.0-0.2) Sodium Level 142 mmol/L (136-145) Potassium Level 3.9 mmol/L (3.5-5.1) Chloride Level 105 mmol/L (98-107) Carbon Dioxide Level 29 mmol/L (21-32) Anion Gap 8 (6-14) Blood Urea Nitrogen 13 mg/dL (7-20) Creatinine 1.0 mg/dL (0.6-1.0) Estimated GFR (Cockcroft-Gault) 68.2 BUN/Creatinine Ratio 13 (6-20) Glucose Level 113 mg/dL (70-99) H Calcium Level 9.3 mg/dL (8.5-10.1) Total Bilirubin 0.3 mg/dL (0.2-1.0) Aspartate Amino Transferase (AST) 21 U/L (15-37) Alanine Aminotransferase (ALT) 31 U/L (14-59) Alkaline Phosphatase 120 U/L (46-116) H Troponin I Quantitative < 0.017 ng/mL (0-0.055) Total Protein 7.1 g/dL (6.4-8.2) Albumin 3.5 g/dL (3.4-5.0) Albumin/Globulin Ratio 1.0 (1.0-1.7) EKG EKG Sinus rhythm, rate 77, normal axis,elevations or depressions.[] Radiology/Procedures Radiology/Procedures [] Impressions: EXAM: CHEST 1 VIEW History: Palpitation COMPARISON: 04/03/2018 TECHNIQUE: Single portable radiograph of the chest FINDINGS: The cardiac silhouette is unremarkable. The lungs are clear bilaterally. The costophrenic sulci are clear and well demarcated. IMPRESSION: No radiographic evidence of an acute cardiopulmonary process. Electronically signed by: Emmanuel Chow MD (05/07/2018 1:47 PM) [facility] DICTATED AND SIGNED BY: EMMANUEL CHOW MD DATE: 05/07/18 [id number] CC: JUNIOR GOMES DO; MUNA MEEHAN ~ Course & Med Decision Making Course & Med Decision Making Pertinent Labs and Imaging studies reviewed. (See chart for details) The patient's EKG after showed sinus rhythm. The patient apparently converted prior to EKG. Her labs are unremarkable. Her troponin is negative. Her chest x- ray is negative. I discussed the case with Dr. Antoine and he does not advise any medication changes at this time. He will call the patient tomorrow for follow-up appointment. She had no further exacerbations of her arrhythmia in the emergency room. She is stable for discharge at this time. [] Dragon Disclaimer Dragon Disclaimer This electronic medical record was generated, in whole or in part, using a voice recognition dictation system. Departure Departure: Referrals: MUNA MEEHAN (PCP) JUNIOR GOMES DO May 07, 2018 13:40
--- NOTE | 2018-05-07 13:51 | RAD ---
EXAM: CHEST 1 VIEW History: Palpitation COMPARISON: 04/03/2018 TECHNIQUE: Single portable radiograph of the chest FINDINGS: The cardiac silhouette is unremarkable. The lungs are clear bilaterally. The costophrenic sulci are clear and well demarcated. IMPRESSION: No radiographic evidence of an acute cardiopulmonary process. Electronically signed by: Emmanuel Chow MD (05/07/2018 1:47 PM) [facility]
[2018-05-07] MEDS ORDERED: ALBUTEROL SULFATE 2.5 MG/3 ML NEBU. NEB ONE (14:15)
[2018-05-07 15:12] VITALS: BP 131/97
--- NOTE | 2018-05-07 18:27 | EKG ---
[address] [address] Test Date: 2018-05-07 Test Time: 12:51:05 Pat Name: ANAI WHEELER Department: Room: Gender: F Jack Winder: : 1955 Requested By: JUNIOR GOMES Order Number: [id number] Reading MD: Jose Romero MD Measurements Intervals [place] Rate: 77 P: 54 FL: 148 QRS: 3 QRSD: 78 T: 45 QT: 384 QTc: 436 Interpretive Statements SINUS RHYTHM Electronically Signed On 05-08-2018 14:02:05 CDT by Jose Romero MD
== END 2018-05-07 15:43 | disposition home or self-care (01) ==
LOC: ER 12:37
DX: I49.9 Cardiac arrhythmia, unspecified (principal); R00.0 Tachycardia, unspecified; F41.9 Anxiety disorder, unspecified; J44.9 Chronic obstructive pulmonary disease, unspecified
CPT/HCPCS: 36415; 71045; 80053; 84484; 85025; 93005; 94640; 99285; J7613; J7030

== ENCOUNTER 2018-08-08 10:07 | Emergency (ER) | payer OTHER ==
[~2018-08-08] VITALS: Ht 170.2 cm; Wt 107.0 kg
[~2018-08-08 10:07] MED LIST changes: +ALBU2.5V8 IH; -ALBU8.5H8 IH; +HYDR-2155 PO; -HYDR-2758 PO
--- NOTE | 2018-08-08 10:39 | RAD ---
Portable chest, 08/08/2018: HISTORY: Chest pain, asthma Comparison is made to a study from 05/07/2018. The heart size and pulmonary vascularity are normal. No pulmonary infiltrate is seen. There is no evidence of pleural fluid IMPRESSION: No acute cardiopulmonary abnormality is detected. Electronically signed by: Hans Lowry MD (08/08/2018 10:35 AM) [facility]
[2018-08-08 11:12] LABS: BASO % 1 % (0-3); EOS # 0.3 x10^3/uL (0.0-0.7); EOS % 7 % (0-3); HEMATOCRIT 44.4 % (36.0-47.0); HEMOGLOBIN 14.4 g/dL (12.0-15.5); LYMPH # 2.6 x10^3/uL (1.0-4.8); LYMPH % 49 % (24-48); MEAN CORPUSCULAR HEMOGLOBIN 27 pg (25-35); MEAN CORPUSCULAR HGB CONC 33 g/dL (31-37); MEAN CORPUSCULAR VOLUME 82 fL (79-100); MONO # 0.3 x10^3/uL (0.0-1.1); MONO % 6 % (0-9); NEUT # 1.9 x10^3uL (1.8-7.7); NEUT % 38 % (31-73); PLATELET COUNT 221 x10^3/uL (140-400); RED BLOOD COUNT 5.44 x10^6/uL (3.50-5.40); RED CELL DISTRIBUTION WIDTH 15.2 % (11.5-14.5); WHITE BLOOD COUNT 5.2 x10^3/uL (4.0-11.0)
[2018-08-08 11:24] LABS: ALBUMIN 3.8 g/dL (3.4-5.0); CALCIUM 9.2 mg/dL (8.5-10.1); CREATININE 0.9 mg/dL (0.6-1.0); MAGNESIUM 2.3 mg/dL (1.8-2.4); POTASSIUM 3.5 mmol/L (3.5-5.1); TOTAL BILIRUBIN 0.4 mg/dL (0.2-1.0); TOTAL PROTEIN 7.5 g/dL (6.4-8.2)
[2018-08-08] MEDS ORDERED: IPRATRPIUM/ALBUTEROL 0.5/2.5MG 3 ML NEBU. ONE (11:48)
[2018-08-08] MEDS ORDERED: IPRATRPIUM/ALBUTEROL 0.5/2.5MG 3 ML NEBU. NEB ONE (12:00)
--- NOTE | 2018-08-08 12:01 | PHYS DOC ---
Past History Past Medical History: A-Fib, Anxiety, Asthma, COPD, Diabetes, Hypertension, Other Additional Past Medical Histor: sarcoidosis Past Surgical History: Appendectomy, Cholecystectomy, Gastric Bypass, Hysterectomy, Knee Replacement, Spleenectomy, Other Smoking: Non-smoker Alcohol Use: None Drug Use: Marijuana Adult General Chief Complaint Chief Complaint: chest pain and palpitation [facility] HPI Patient is a 62 year old female with history of paroxysmal SVT who presents with complaining of palpitations and chest pain. Patient states around 9 AM while he was doing her usual activity, she felt palpitation is fast heartbeat, dizziness, substernal burning pain without radiation of the 10 over 10 pain, generalized weakness. Patient states her last blood pressure showed heart rate of 188 and she took one extra heart medication with resolving the chest pain and palpitation in few minutes. Patient denies any chest pain or palpitation at arrival to ER. Patient states she had previous episode of chest pain and palpitations diagnosis of SVT. Patient denies recent dehydration or sickness. Review of Systems Review of Systems Constitutional: Denies fever or chills [] Eyes: Denies change in visual acuity, redness, or eye pain [] HENT: Denies nasal congestion or sore throat [] Respiratory: Denies cough or shortness of breath [] Cardiovascular: No additional information not addressed in HPI [] GI: Denies abdominal pain, nausea, vomiting, bloody stools or diarrhea [] : Denies dysuria or hematuria [] Musculoskeletal: Denies back pain or joint pain [] Integument: Denies rash or skin lesions [] Neurologic: Denies headache, focal weakness or sensory changes [] Endocrine: Denies polyuria or polydipsia [] All other systems were reviewed and found to be within normal limits, except as documented in this note. Current Medications Current Medications Current Medications Medications (Trade) Dose Ordered Sig/Saulo Start Time Stop Time Status Last Admin Dose Admin Albuterol/ Ipratropium (Duoneb) 3 ml 1X ONCE 08/08/18 12:00 08/08/18 12:01 UNV Allergies Allergies Allergies Coded Allergies Type Severity Reaction Last Updated Verified No Known Drug Allergies 01/04/16 No Physical Exam Physical Exam Constitutional: Well developed, well nourished, mild distress, non-toxic appearance. [] HENT: Normocephalic, atraumatic Eyes: PERRLA, EOMI, conjunctiva normal, no discharge. [] Neck: Normal range of motion, no tenderness, supple, no stridor. [] Cardiovascular:Heart rate regular rhythm, no murmur [] Lungs & Thorax: No respiratory distress, mild wheezing bilateral bases Abdomen: Bowel sounds normal, soft, no tenderness, no masses, no pulsatile masses. [] Skin: Warm, dry, no erythema, no rash. [] Back: No tenderness, no CVA tenderness. [] Extremities: No tenderness, no cyanosis, no clubbing, ROM intact, no edema. [] Neurologic: Alert and oriented X 3, normal motor function, normal sensory function, no focal deficits noted. [] Psychologic: Affect anxious, judgement normal, mood normal. [] Current Patient Data Vital Signs Vital Signs Date Time Temp Pulse Resp B/P (MAP) Pulse Ox O2 Delivery O2 Flow Rate FiO2 08/08/18 11:26 75 16 147/94 (111) 97 08/08/18 10:50 Room Air 08/08/18 10:26 98.4 Lab Results Laboratory Tests Test 08/08/18 10:45 White Blood Count 5.2 x10^3/uL (4.0-11.0) Red Blood Count 5.44 x10^6/uL (3.50-5.40) H Hemoglobin 14.4 g/dL (12.0-15.5) Hematocrit 44.4 % (36.0-47.0) Mean Corpuscular Volume 82 fL (79-100) Mean Corpuscular Hemoglobin 27 pg (25-35) Mean Corpuscular Hemoglobin Concent 33 g/dL (31-37) Red Cell Distribution Width 15.2 % (11.5-14.5) H Platelet Count 221 x10^3/uL (140-400) Neutrophils (%) (Auto) 38 % (31-73) Lymphocytes (%) (Auto) 49 % (24-48) H Monocytes (%) (Auto) 6 % (0-9) Eosinophils (%) (Auto) 7 % (0-3) H Basophils (%) (Auto) 1 % (0-3) Neutrophils # (Auto) 1.9 x10^3uL (1.8-7.7) Lymphocytes # (Auto) 2.6 x10^3/uL (1.0-4.8) Monocytes # (Auto) 0.3 x10^3/uL (0.0-1.1) Eosinophils # (Auto) 0.3 x10^3/uL (0.0-0.7) Basophils # (Auto) 0.0 x10^3/uL (0.0-0.2) Prothrombin Time 9.3 SEC (9.4-11.4) L Prothrombin Time INR 0.9 (0.9-1.1) Sodium Level 144 mmol/L (136-145) Potassium Level 3.5 mmol/L (3.5-5.1) Chloride Level 106 mmol/L (98-107) Carbon Dioxide Level 29 mmol/L (21-32) Anion Gap 9 (6-14) Blood Urea Nitrogen 8 mg/dL (7-20) Creatinine 0.9 mg/dL (0.6-1.0) Estimated GFR (Cockcroft-Gault) 77.0 BUN/Creatinine Ratio 9 (6-20) Glucose Level 97 mg/dL (70-99) Calcium Level 9.2 mg/dL (8.5-10.1) Magnesium Level 2.3 mg/dL (1.8-2.4) Total Bilirubin 0.4 mg/dL (0.2-1.0) Aspartate Amino Transferase (AST) 14 U/L (15-37) L Alanine Aminotransferase (ALT) 20 U/L (14-59) Alkaline Phosphatase 137 U/L (46-116) H Creatine Kinase 128 U/L (26-192) Troponin I Quantitative < 0.017 ng/mL (0-0.055) FU-Qcs-T-Type Natriuretic Peptide 21 pg/mL (0-124) Total Protein 7.5 g/dL (6.4-8.2) Albumin 3.8 g/dL (3.4-5.0) Albumin/Globulin Ratio 1.0 (1.0-1.7) Lipase 75 U/L (73-393) EKG EKG EKG interpreted by me. EKG at 1019 showed normal sinus rhythm at rate of 85, no acute ST and T-wave abnormalities. Radiology/Procedures Radiology/Procedures [address] [address] IMAGING REPORT Signed PATIENT: ANAI WHEELER ACCOUNT: [id number] : 1955 LOCATION: ER AGE: 62 SEX: F EXAM STATUS: REG ER ORD. PHYSICIAN: YOLANDA HARP MD REASON: chest pain PROCEDURE: PORTABLE CHEST 1V Portable chest, 08/08/2018: HISTORY: Chest pain, asthma Comparison is made to a study from 05/07/2018. The heart size and pulmonary vascularity are normal. No pulmonary infiltrate is seen. There is no evidence of pleural fluid IMPRESSION: No acute cardiopulmonary abnormality is detected. Electronically signed by: Hans Lowry MD (08/08/2018 10:35 AM) [facility] DICTATED AND SIGNED BY: HANS LOWRY MD DATE: 08/08/18 1034 CC: YOLANDA HARP MD; MUNA MEEHAN ~ Course & Med Decision Making Course & Med Decision Making Pertinent Labs and Imaging studies reviewed. (See chart for details) Evaluation of patient in ER showed 62-year-old male patient with history of SVT presented to ER with one episode of palpitation and chest pain at home that is about arrival to ER. Patient had unremarkable physical exam except for mild wheezing in bibasilar lung. EKG and labs was unremarkable. Plan discharge patient home to diagnose of resolved palpitation and chest pain. Dragon Disclaimer Dragon Disclaimer This electronic medical record was generated, in whole or in part, using a voice recognition dictation system. Departure Departure: Impression: Primary Impression: Palpitation Additional Impressions: Acute chest pain Wheezing Disposition: HOME, SELF-CARE (at 1200) Condition: IMPROVED Referrals: MUNA MEEHAN (PCP) Patient Instructions: Asthma Attacks, Prevention, Chest Pain (Nonspecific), Palpitations Additional Instructions: Continue home medication Follow-up with your primary care physician in 2-3 days Return to ER if not getting better Problem Qualifiers YOLANDA HARP MD Aug 08, 2018 12:01
[2018-08-08 12:42] VITALS: BP 162/84
--- NOTE | 2018-08-08 20:57 | EKG ---
[address] [address] Test Date: 2018-08-08 Test Time: 10:19:48 Pat Name: ANAI WHEELER Department: Room: Gender: F [employer]: : 1955 Requested By: YOLANDA HARP Order Number: [id number] Reading MD: Rocael Zhang Measurements Intervals [place] Rate: 85 P: 46 [place]: 124 QRS: 1 QRSD: 78 T: 31 QT: 374 QTc: 451 Interpretive Statements SINUS RHYTHM Electronically Signed On 08-11-2018 17:18:38 [employer] by Rocael Zhang
== END 2018-08-08 12:42 | disposition home or self-care (01) ==
LOC: ER 10:07
DX: R07.89 Other chest pain (principal); R00.2 Palpitations; R06.2 Wheezing; R42 Dizziness and giddiness; I48.91 Unspecified atrial fibrillation; F41.9 Anxiety disorder, unspecified; J44.9 Chronic obstructive pulmonary disease, unspecified; E11.9 Type 2 diabetes mellitus without complications; I10 Essential (primary) hypertension
CPT/HCPCS: 36415; 71045; 80053; 82550; 83690; 83735; 83880; 84484; 85025; 85610; 93005; 94640; 99284; J7620

== ENCOUNTER → 2018-08-15 | Outpatient (CLI) | payer OTHER ==
[2018-08-08 12:42] VITALS: BP 162/84
--- NOTE | 2018-08-15 16:19 | RAD ---
DATE: 08/15/2018 EXAM: MAMMO ЮЛИЯ SCREENING BILATERAL HISTORY: Routine screening COMPARISON: 05/27/2017, 05/18/2017 This study was interpreted with the benefit of Computerized Aided Detection (CAD). Breast Density: SCATTERED The breast parenchyma shows scattered fibroglandular densities. Breast parenchyma level B. FINDINGS: 2-D and 3-D tomosynthesis imaging was performed in CC and MLO projections. No new or enlarging breast densities are seen. Multiple benign-appearing lymph nodes are again noted in the axillary regions. Benign type calcifications are again noted in both breasts. No suspicious microcalcifications have developed. IMPRESSION: Stable mammograms without evidence of malignancy. BI-RADS CATEGORY: 2 BENIGN FINDING(S) RECOMMENDED FOLLOW-UP: 12M 12 MONTH FOLLOW-UP PQRS compliance statement: Patient information was entered into a reminder system with a target due date for the next mammogram. Mammography is a sensitive method for finding small breast cancers, but it does not detect them all and is not a substitute for careful clinical examination. A negative mammogram does not negate a clinically suspicious finding and should not result in delay in biopsying a clinically suspicious abnormality. "Our facility is accredited by the [employer] Mammography Program."
== END | disposition home or self-care (01) ==
LOC: MAMMO 09:22
PROVIDERS: ATTEND Physician Assistant Medical
DX: Z12.31 Encounter for screening mammogram for malignant neoplasm of breast (principal)
CPT/HCPCS: 77063; 77067

== ENCOUNTER → 2018-09-05 | Outpatient (CLI) | payer OTHER ==
[2018-08-08 12:42] VITALS: BP 162/84
--- NOTE | 2018-09-05 13:29 | RAD ---
EXAM: Chest and left ribs, 4 views. HISTORY: Fall. COMPARISON: 05/07/2018 FINDINGS: A frontal view the chest and 3 views left ribs are obtained. There is no infiltrate, pleural effusion or pneumothorax. The heart is normal in size. No displaced fracture is seen. IMPRESSION: No acute pulmonary or osseous finding. Electronically signed by: Ebony Frias MD (09/05/2018 1:25 PM) [place] [id number]
== END | disposition home or self-care (01) ==
LOC: RAD 10:58
PROVIDERS: ATTEND Physician Assistant Medical
DX: R07.81 Pleurodynia (principal); W19.XXXA Unspecified fall, initial encounter; Y93.89 Activity, other specified; Y92.89 Other specified places as the place of occurrence of the external cause; Y99.8 Other external cause status
CPT/HCPCS: 71101

== ENCOUNTER → 2018-09-08 | Outpatient (CLI) | payer OTHER ==
--- NOTE | 2018-09-08 12:39 | RAD ---
Two-view chest dated 09/08/2018. Comparison made to 09/05/2018. Clinical indication: Cough. FINDINGS: PA and lateral views were obtained. Heart and mediastinal contours are stable. Lungs are somewhat hyperinflated but otherwise clear. No consolidation or pleural effusion. No pneumothorax. There is mild hyperinflation suggestive of COPD. IMPRESSION: No acute radiographic abnormality. Electronically signed by: Arpit Olson MD (09/08/2018 12:34 PM) [facility]
== END | disposition home or self-care (01) ==
LOC: DXRAD 12:01
PROVIDERS: ATTEND Internal Medicine Pulmonary Disease
DX: R06.02 Shortness of breath (principal)
CPT/HCPCS: 71046

== ENCOUNTER 2018-09-28 07:41 | Emergency (ER) | payer OTHER ==
[~2018-09-28] VITALS: Ht 170.2 cm; Wt 109.0 kg
[2018-09-28 07:53] VITALS: BP 123/71
[2018-09-28] MEDS ORDERED: KETOROLAC 15 MG/ML VIAL. IM ONE (08:00)
--- NOTE | 2018-09-28 08:02 | PHYS DOC ---
Past History Past Medical History: A-Fib, Anxiety, Asthma, COPD, Diabetes, Hypertension, Other Additional Past Medical Histor: sarcoidosis Past Surgical History: Appendectomy, Cholecystectomy, Gastric Bypass, Hysterectomy, Knee Replacement, Spleenectomy, Other Smoking: Non-smoker Alcohol Use: None Drug Use: Marijuana Adult General Chief Complaint Chief Complaint: BACK PAIN OR INJURY HPI HPI Patient is a 63-year-old female who presents with right back/flank pain that started approximately 2-1/2-3 weeks ago. It has been getting worse over time. Increased pain with movement as well as palpation. No fever. No hematuria. No loss of bowel or bladder control. No trauma. No significant relief with ibuprofen. No nausea or vomiting. Patient rates the current pain as 10 out of 10. No significant relief with her usual home medicines which include cyclobenzaprine.[] Review of Systems Review of Systems Constitutional: Denies fever or chills [] Eyes: Denies change in visual acuity, redness, or eye pain [] HENT: Denies nasal congestion or sore throat [] Respiratory: Denies cough or shortness of breath [] Cardiovascular: No chest pain or palpitations[] GI: Denies abdominal pain, nausea, vomiting, bloody stools or diarrhea [] : Denies dysuria or hematuria [] Musculoskeletal: See history of present illness[] Integument: Denies rash or skin lesions [] Neurologic: Denies headache, focal weakness or sensory changes [] Endocrine: Denies polyuria or polydipsia [] All other systems were reviewed and found to be within normal limits, except as documented in this note. Allergies Allergies Allergies Coded Allergies Type Severity Reaction Last Updated Verified No Known Drug Allergies 01/04/16 No Physical Exam Physical Exam Constitutional: Well developed, well nourished, mild discomfort, non-toxic appearance. [] HENT: Normocephalic, atraumatic, bilateral external ears normal, oropharynx moist, no oral exudates, nose normal. [] Eyes: PERRLA, EOMI, conjunctiva normal, no discharge. [] Neck: Normal range of motion, no tenderness, supple, no stridor. [] Cardiovascular:Heart rate regular rhythm, no murmur [] Lungs & Thorax: Bilateral breath sounds clear to auscultation [] Abdomen: Bowel sounds normal, soft, no tenderness, no masses, no pulsatile masses. [] Skin: Warm, dry, no erythema, no rash. [] Back: Tenderness in the right-sided paraspinal musculature at the thoracic or lumbar junction region. Normal gait. DTRs are 2 over 4 and symmetric in the patella and the Achilles. There is muscle spasm present in that right thoracic or lumbar region. [] Extremities: No tenderness, no cyanosis, no clubbing, ROM intact, no edema. [] Neurologic: Alert and oriented X 3, normal motor function, normal sensory function, no focal deficits noted. [] Psychologic: Affect normal, judgement normal, mood normal. [] EKG EKG [] Radiology/Procedures Radiology/Procedures TECHNIQUE: CT abdomen and pelvis without IV contrast with multiplanar reformats. COMPARISON: 01/04/2016 FINDINGS: Limited evaluation of solid abdominal and pelvic organs due to lack of IV contrast. Heart is normal in size. No pericardial or pleural effusion. 1.2 cm nodule is seen in the left lower lobe also seen appears exam from December 2015. 5 mm adjacent nodule is seen also seen on previous exam. Diffuse hepatic steatosis. Spleen and liver are normal in morphology. Status post cholecystectomy. Diffuse fatty infiltration of the pancreas. Adrenal glands within normal limits. No nephrolithiasis or hydronephrosis. Most likely a simple cyst in the inferior pole of the right kidney measuring 1 cm. No free pelvic fluid or ascites. No enlarged retroperitoneal or pelvic adenopathy. No bowel obstruction. Status post partial gastrectomy. Status post hysterectomy. Urinary bladder is decompressed without radiopaque stone. No pneumoperitoneum. No suspicious bony lesion. IMPRESSION: Limited evaluation of solid abdominal and pelvic organs due to lack of IV contrast. 1. Couple of pulmonary nodules, stable dating back to 01/04/2016 and most likely benign given interval stability. 2. Hepatic steatosis. 3. No nephrolithiasis or hydronephrosis. Electronically signed by: Edmar Burkett DO (09/28/2018 8:43 AM) [id number][] Course & Med Decision Making Course & Med Decision Making Pertinent Labs and Imaging studies reviewed. (See chart for details) Medical decision making: No evidence of pyelonephritis nor kidney stone. Seems to be more muscular in nature and will adjust her muscle muscle relaxer medication since she is not achieving any significant relief with her current one.[] Dragon Disclaimer Dragon Disclaimer This electronic medical record was generated, in whole or in part, using a voice recognition dictation system. Departure Departure: Impression: Primary Impression: Right-sided back pain Disposition: 01 HOME, SELF-CARE Condition: IMPROVED Referrals: MUNA MEEHAN (PCP) Follow-up in 2 days Patient Instructions: Back Exercises, Generic, SportsMed, Back Pain, Adult Additional Instructions: Follow-up with your regular doctor in 2 days. Take the medication as prescribed. Stop the cyclobenzaprine you're currently prescribed because you will be getting orphenadrine. You may restart the cyclobenzaprine when you have completed the orphenadrine. Scripts Orphenadrine Citrate (ORPHENADRINE CITRATE) 100 Mg Tablet.er 100 MG PO BID for BACK PAIN, #20 TAB.SR Prov: JALYN MORALES DO 09/28/18 Meloxicam (MELOXICAM) 7.5 Mg Tablet 7.5 MG PO DAILY for PAIN, #20 TAB Prov: JALYN MORALES DO 09/28/18 Problem Qualifiers Primary Impression: Right-sided back pain Back pain location: back pain in unspecified location Chronicity: acute Qualified Codes: M54.9 - Dorsalgia, unspecified JALYN MORALES DO Sep 28, 2018 08:02
--- NOTE | 2018-09-28 08:46 | RAD ---
PQRS Compliance statement: One or more of the following individualized dose reduction techniques were utilized for this examination: 1. Automated exposure control. 2. Adjustment of the mA and/or kV according to patient size. 3. Use of iterative reconstruction technique. Indication:rt flank pain TECHNIQUE: CT abdomen and pelvis without IV contrast with multiplanar reformats. COMPARISON: 01/04/2016 FINDINGS: Limited evaluation of solid abdominal and pelvic organs due to lack of IV contrast. Heart is normal in size. No pericardial or pleural effusion. 1.2 cm nodule is seen in the left lower lobe also seen appears exam from December 2015. 5 mm adjacent nodule is seen also seen on previous exam. Diffuse hepatic steatosis. Spleen and liver are normal in morphology. Status post cholecystectomy. Diffuse fatty infiltration of the pancreas. Adrenal glands within normal limits. No nephrolithiasis or hydronephrosis. Most likely a simple cyst in the inferior pole of the right kidney measuring 1 cm. No free pelvic fluid or ascites. No enlarged retroperitoneal or pelvic adenopathy. No bowel obstruction. Status post partial gastrectomy. Status post hysterectomy. Urinary bladder is decompressed without radiopaque stone. No pneumoperitoneum. No suspicious bony lesion. IMPRESSION: Limited evaluation of solid abdominal and pelvic organs due to lack of IV contrast. 1. Couple of pulmonary nodules, stable dating back to 01/04/2016 and most likely benign given interval stability. 2. Hepatic steatosis. 3. No nephrolithiasis or hydronephrosis. Electronically signed by: Edmar Burkett DO (09/28/2018 8:43 AM) [id number]
[2018-09-28 08:57] LABS: BILIRUBIN,URINE NEG (NEG); CLARITY,URINE HAZY; COLOR,URINE AMBER; GLUCOSE,URINE NEG (NEG); NITRITE,URINE NEG (NEG); UROBILINOGEN,URINE 0.2 mg/dL (0.2 mg/dL)
[2018-09-28 08:58] LABS: BACTERIA,URINE FEW /HPF (0-FEW); RBC,URINE 0 /HPF (0-2); SQUAMOUS EPITHELIAL CELL,UR MOD /LPF; WBC,URINE 0 /HPF (0-4)
[2018-09-28] MEDS ORDERED: ORPH-16 PO (09:07)
[2018-09-28] MEDS ORDERED: MELO7.5T29 PO (09:07)
== END 2018-09-28 09:14 | disposition home or self-care (01) ==
LOC: ER 07:41
DX: M54.89 Other dorsalgia (principal); R91.8 Other nonspecific abnormal finding of lung field; K76.0 Fatty (change of) liver, not elsewhere classified; I48.91 Unspecified atrial fibrillation; F41.9 Anxiety disorder, unspecified; J44.9 Chronic obstructive pulmonary disease, unspecified; E11.9 Type 2 diabetes mellitus without complications; I10 Essential (primary) hypertension; Z90.49 Acquired absence of other specified parts of digestive tract; Z90.89 Acquired absence of other organs; Z90.710 Acquired absence of both cervix and uterus; Z90.81 Acquired absence of spleen; Z98.84 Bariatric surgery status
CPT/HCPCS: 74176; 81001; 96372; 99284; J1885

== ENCOUNTER → 2019-09-10 | Outpatient (CLI) | payer MEDICAID ==
[~2019-09-10] MED LIST changes: +LIDO700A21 TP; -LIDO700A39 TP; +MELO7.5T29 PO
--- NOTE | 2019-09-10 15:31 | RAD ---
EXAM: CHEST PA LATERAL INDICATION: Cough. TECHNIQUE: PA and lateral views COMPARISON: September 08, 2018 chest x-ray FINDINGS: The heart size is normal. The great vessels appear unremarkable. There is no hilar or mediastinal mass. The lungs are clear. There is no pleural effusion or pneumothorax. There are no significant osseous abnormalities. IMPRESSION: No active cardiopulmonary disease. Electronically signed by: Ananda Pinto MD (09/10/2019 3:28 PM) [facility]
== END | disposition home or self-care (01) ==
LOC: DXRAD 11:37
PROVIDERS: ATTEND Internal Medicine Pulmonary Disease
DX: R06.02 Shortness of breath (principal)
CPT/HCPCS: 71046

== ENCOUNTER → 2019-12-03 | Outpatient (CLI) | payer MEDICAID ==
--- NOTE | 2019-12-03 16:18 | RAD ---
CHEST PA LATERAL History: Cough, shortness of air Comparison: 09/10/2019 Findings: 2 views of the chest are submitted. There is no infiltrate, pneumothorax, or effusion. Pericardial cardiac silhouette is within normal limits in size. There is mild thoracic dextroscoliosis. There is multilevel thoracic spondylosis. There is again somewhat tortuous thoracic aorta. There is a nodule of the left lateral lung base as seen on the AP view. Impression: 1. There is no significant infiltrate. There is a nodule of the left lateral lung base as seen on the AP view corresponding with the nodule seen on CT abdomen 09/28/2018. Electronically signed by: Eyad Field MD (12/03/2019 4:15 PM) [id number]
== END | disposition home or self-care (01) ==
LOC: RAD 13:49
PROVIDERS: ATTEND Internal Medicine Pulmonary Disease
DX: R91.1 Solitary pulmonary nodule (principal); M41.84 Other forms of scoliosis, thoracic region; M47.814 Spondylosis without myelopathy or radiculopathy, thoracic region; J45.909 Unspecified asthma, uncomplicated; Q25.46 Tortuous aortic arch
CPT/HCPCS: 71046

== ENCOUNTER 2020-01-13 06:51 | Emergency (ER) | payer OTHER, MEDICAID ==
[~2020-01-13] VITALS: Ht 170.2 cm; Wt 109.0 kg
[2020-01-13 07:11] VITALS: BP 121/78
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
[2020-01-13] MEDS ORDERED: DICL50TA4 PO (08:01)
[2020-01-13] MEDS ORDERED: ORPH-16 PO (08:01)
[2020-01-13] MEDS ORDERED: HYDR-3165 PO (08:01)
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
== END 2020-01-13 08:05 | disposition home or self-care (01) ==
LOC: ER 06:51
DX: S16.1XXA Strain of muscle, fascia and tendon at neck level, initial encounter (principal); S39.012A Strain of muscle, fascia and tendon of lower back, initial encounter; S29.012A Strain of muscle and tendon of back wall of thorax, initial encounter; R51 Headache; I48.91 Unspecified atrial fibrillation; J44.9 Chronic obstructive pulmonary disease, unspecified; I10 Essential (primary) hypertension; Z98.84 Bariatric surgery status; V49.69XA Unspecified car occupant injured in collision with other motor vehicles in traffic accident, initial encounter; Y93.89 Activity, other specified; Y92.89 Other specified places as the place of occurrence of the external cause; Y99.8 Other external cause status
CPT/HCPCS: 72040; 72072; 72100; 99284

== ENCOUNTER 2020-03-06 08:09 | Emergency (ER) | payer MEDICAID, OTHER ==
[~2020-03-06] VITALS: Ht 170.2 cm; Wt 90.0 kg
[~2020-03-06 08:09] MED LIST changes: +DICL50TA4 PO; +HYDR-3165 PO
[2020-03-06] MEDS: IPRATRPIUM/ALBUTEROL 0.5/2.5MG 3 ML NEBU. NEB ONE (08:45)
[2020-03-06 08:51] LABS: BASO # 0.1 x10^3/uL (0.0-0.2); BASO % 1 % (0-3); EOS # 0.3 x10^3/uL (0.0-0.7); EOS % 2 % (0-3); HEMATOCRIT 40.4 % (36.0-47.0); LYMPH # 1.9 x10^3/uL (1.0-4.8); LYMPH % 13 % (24-48); MEAN CORPUSCULAR HEMOGLOBIN 26 pg (25-35); MEAN CORPUSCULAR HGB CONC 32 g/dL (31-37); MEAN CORPUSCULAR VOLUME 82 fL (79-100); MONO # 0.5 x10^3/uL (0.0-1.1); MONO % 3 % (0-9); NEUT % 81 % (31-73); PLATELET COUNT 221 x10^3/uL (140-400); RED BLOOD COUNT 4.95 x10^6/uL (3.50-5.40); RED CELL DISTRIBUTION WIDTH 15.3 % (11.5-14.5); WHITE BLOOD COUNT 14.8 x10^3/uL (4.0-11.0)
[2020-03-06 08:54] LABS: CALCIUM 9.2 mg/dL (8.5-10.1); CREATININE 1.2 mg/dL (0.6-1.0); GFR 54.9; POTASSIUM 3.5 mmol/L (3.5-5.1)
[2020-03-06 09:00] LABS: ALBUMIN 3.3 g/dL (3.4-5.0); ALBUMIN/GLOBULIN RATIO 0.9 (1.0-1.7); TOTAL BILIRUBIN 0.7 mg/dL (0.2-1.0); TOTAL PROTEIN 7.1 g/dL (6.4-8.2)
[2020-03-06] MEDS: methylPREDNISolone SOD SUCC PF 125 MG/2 ML VIAL. IV ONE (09:05)
--- NOTE | 2020-03-06 09:13 | RAD ---
EXAM: CHEST AP ONLY INDICATION: Reason: SOB / Spl. Instructions: / History: . TECHNIQUE: Single view COMPARISON: 12/03/19 FINDINGS: The heart size is normal. The great vessels appear unremarkable. There is no hilar or mediastinal mass. The lungs are clear. There is no pleural effusion or pneumothorax. There are no significant osseous abnormalities. IMPRESSION: No active cardiopulmonary disease. Electronically signed by: Ananda Pinto MD (03/06/2020 9:10 AM) [id number]
--- NOTE | 2020-03-06 09:21 | PHYS DOC ---
Past History Past Medical History: A-Fib, Asthma, Other Additional Past Medical Histor: SARCOIDOSIS Past Surgical History: Gastric Bypass, Other Additional Past Surgical Histo: GASTRIC SLEEVE Smoking: Non-smoker Alcohol Use: None Drug Use: Marijuana General Adult EDM: Chief Complaint: SHORTNESS OF BREATH HPI: HPI: 64-year-old female presents with worsening shortness of breath for the last sev eral days. She has asthma at baseline. She has run out of her albuterol inhaler. She is still using her other 2 medications. She went to her primary care physician and he recommended that she come here. Patient has no known COVID-19 exposures. Denies fever and chills. She has no other complaints at this time. Review of Systems: Review of Systems: Constitutional: Denies fever or chills Eyes: Denies change in visual acuity HENT: Denies nasal congestion or sore throat Respiratory: shortness of breath Cardiovascular: Denies chest pain or edema GI: Denies abdominal pain, nausea, vomiting, bloody stools or diarrhea : Denies dysuria Musculoskeletal: Denies back pain or joint pain Integument: Denies rash Neurologic: Denies headache, focal weakness or sensory changes Endocrine: Denies polyuria or polydipsia Lymphatic: Denies swollen glands Psychiatric: Denies depression or anxiety Heart Score: Risk Factors: Risk Factors: DM, Current or recent (<one month) smoker, HTN, HLP, family history of CAD, obesity. Risk Scores: Score 0 - 3: 2.5% MACE over next 6 weeks - Discharge Home Score 4 - 6: 20.3% MACE over next 6 weeks - Admit for Clinical Observation Score 7 - 10: 72.7% MACE over next 6 weeks - Early Invasive Strategies Current Medications: Current Meds: Current Medications Medications (Trade) Dose Ordered Sig/Saulo Start Time Stop Time Status Last Admin Dose Admin Albuterol/ Ipratropium (Duoneb) 3 ml 1X ONCE 03/06/20 08:45 03/06/20 08:46 DC 03/06/20 08:45 3 ML Methylprednisolone Sodium Succinate (SOLU-Medrol 125MG VIAL) 125 mg 1X ONCE 03/06/20 08:45 03/06/20 08:46 DC 03/06/20 09:05 125 MG Allergies: Allergies: Allergies Coded Allergies Type Severity Reaction Last Updated Verified No Known Drug Allergies 01/04/16 No Physical Exam: PE: Constitutional: Well developed, well nourished, no acute distress, non-toxic appearance. [] HENT: Normocephalic, atraumatic, bilateral external ears normal, oropharynx moist, no oral exudates, nose normal. [] Eyes: PERRLA, EOMI, conjunctiva normal, no discharge. [] Neck: Normal range of motion, no tenderness, supple, no stridor. [] Cardiovascular:Heart rate regular rhythm, no murmur [] Lungs & Thorax: Bilateral breath sounds clear to auscultation [] Abdomen: Bowel sounds normal, soft, no tenderness, no masses, no pulsatile masses. [] Skin: Warm, dry, no erythema, no rash. [] Back: No tenderness, no CVA tenderness. [] Extremities: No tenderness, no cyanosis, no clubbing, ROM intact, no edema. [] Neurologic: Alert and oriented X 3, normal motor function, normal sensory function, no focal deficits noted. [] Psychologic: Affect normal, judgement normal, mood normal. [] Current Patient Data: Labs: Laboratory Tests Test 03/06/20 08:33 White Blood Count 14.8 x10^3/uL (4.0-11.0) H Red Blood Count 4.95 x10^6/uL (3.50-5.40) Hemoglobin 13.0 g/dL (12.0-15.5) Hematocrit 40.4 % (36.0-47.0) Mean Corpuscular Volume 82 fL (79-100) Mean Corpuscular Hemoglobin 26 pg (25-35) Mean Corpuscular Hemoglobin Concent 32 g/dL (31-37) Red Cell Distribution Width 15.3 % (11.5-14.5) H Platelet Count 221 x10^3/uL (140-400) Neutrophils (%) (Auto) 81 % (31-73) H Lymphocytes (%) (Auto) 13 % (24-48) L Monocytes (%) (Auto) 3 % (0-9) Eosinophils (%) (Auto) 2 % (0-3) Basophils (%) (Auto) 1 % (0-3) Neutrophils # (Auto) 12.0 x10^3uL (1.8-7.7) H Lymphocytes # (Auto) 1.9 x10^3/uL (1.0-4.8) Monocytes # (Auto) 0.5 x10^3/uL (0.0-1.1) Eosinophils # (Auto) 0.3 x10^3/uL (0.0-0.7) Basophils # (Auto) 0.1 x10^3/uL (0.0-0.2) Sodium Level 140 mmol/L (136-145) Potassium Level 3.5 mmol/L (3.5-5.1) Chloride Level 103 mmol/L (98-107) Carbon Dioxide Level 27 mmol/L (21-32) Anion Gap 10 (6-14) Blood Urea Nitrogen 14 mg/dL (7-20) Creatinine 1.2 mg/dL (0.6-1.0) H Estimated GFR (Cockcroft-Gault) 54.9 BUN/Creatinine Ratio 12 (6-20) Glucose Level 124 mg/dL (70-99) H Calcium Level 9.2 mg/dL (8.5-10.1) Total Bilirubin 0.7 mg/dL (0.2-1.0) Aspartate Amino Transferase (AST) 28 U/L (15-37) Alanine Aminotransferase (ALT) 36 U/L (14-59) Alkaline Phosphatase 99 U/L (46-116) Troponin I Quantitative < 0.017 ng/mL (0-0.055) Total Protein 7.1 g/dL (6.4-8.2) Albumin 3.3 g/dL (3.4-5.0) L Albumin/Globulin Ratio 0.9 (1.0-1.7) L Vital Signs: Vital Signs Date Time Temp Pulse Resp B/P (MAP) Pulse Ox O2 Delivery O2 Flow Rate FiO2 03/06/20 09:06 68 18 115/68 (84) 96 03/06/20 08:51 Room Air 03/06/20 08:39 98.5 EKG: EKG: Sinus rhythm, rate 73, normal axis, no ST elevations or depressions. [] Radiology/Procedures: Radiology/Procedures: [] Impressions: EXAM: CHEST AP ONLY INDICATION: Reason: SOB / Spl. Instructions: / History: . TECHNIQUE: Single view COMPARISON: 12/03/19 FINDINGS: The heart size is normal. The great vessels appear unremarkable. There is no hilar or mediastinal mass. The lungs are clear. There is no pleural effusion or pneumothorax. There are no significant osseous abnormalities. IMPRESSION: No active cardiopulmonary disease. Electronically signed by: Stan Pinto MD (03/06/2020 9:10 AM) [id number] DICTATED AND SIGNED BY: STAN PINTO MD DATE: 03/06/20 0910 CC: JUNIOR GOMES DO; MUNA MEEHAN ~ Course & Med Decision Making: Course & Med Decision Making Pertinent Labs and Imaging studies reviewed. (See chart for details) The patient's labs are significant for an elevated white count. The rest are essentially unremarkable. We gave her DuoNeb breathing treatment and this has improved the patient's symptoms quite a bit. Her chest x-ray is negative for acute findings. I think is just an asthma exacerbation. The patient needs a new prescription for her albuterol inhaler and a spacer. I will provide this. I will also give her 3 more days of prednisone 50 mg. She is stable for discharge at this time. [] Dragon Disclaimer: Dragon Disclaimer: This electronic medical record was generated, in whole or in part, using a voice recognition dictation system. Departure Departure: Impression: Primary Impression: Asthma with exacerbation Qualified Codes: J45.41 - Moderate persistent asthma with (acute) exacerbation Disposition: 01 HOME/RESIDENCE PRIOR TO ADM Condition: STABLE Referrals: MUNA MEEHAN (PCP) Patient Instructions: Asthma, Adult, Xxax-qd-Cfud Scripts Prednisone (PREDNISONE) 50 Mg Tablet 1 TAB PO DAILY for asthma exacerbation for 3 Days, #3 TAB Prov: JUNIOR GOMES DO 03/06/20 Albuterol Sulfate (VENTOLIN HFA INHALER) 18 Gm Hfa.aer.ad 1 PUFF IH PRN Q4HRS PRN for FOR ASTHMA, #1 INHALER 0 Refills Please also provide an appropriate size spacer. Prov: JUNIOR GOMES DO 03/06/20 Justification of Admission: Justification of Admission: Justification of Admission Dx: N/A JUNIOR GOMES DO Mar 06, 2020 09:21
[2020-03-06 09:55] LABS: BILIRUBIN,URINE NEG (NEG); CLARITY,URINE HAZY; COLOR,URINE AMBER; GLUCOSE,URINE NEG (NEG); NITRITE,URINE NEG (NEG); RBC,URINE 0 /HPF (0-2)
[2020-03-06 09:56] LABS: BACTERIA,URINE MOD /HPF (0-FEW); SQUAMOUS EPITHELIAL CELL,UR MOD /LPF
[2020-03-06] MEDS ORDERED: PRED50TA PO (10:05)
[2020-03-06] MEDS ORDERED: ALBU2.5V8 IH (10:05)
[2020-03-06 10:20] VITALS: BP 128/79
--- NOTE | 2020-03-06 14:45 | EKG ---
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
== END 2020-03-06 10:23 | disposition home or self-care (01) ==
LOC: ER 08:09
DX: J45.41 Moderate persistent asthma with (acute) exacerbation (principal); I48.91 Unspecified atrial fibrillation; Z98.84 Bariatric surgery status
CPT/HCPCS: 36415; 71045; 80053; 81001; 84484; 85025; 87086; 93005; 94640; 96374; 99285; J2930

== ENCOUNTER → 2020-03-12 | Outpatient (CLI) | payer MEDICAID ==
[2020-03-06 10:20] VITALS: BP 128/79
[~2020-03-12] MED LIST changes: +PRED50TA PO
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
== END | disposition home or self-care (01) ==
LOC: MAMMO 12:44
PROVIDERS: ATTEND Physician Assistant Medical
DX: R92.2 Inconclusive mammogram (principal)
CPT/HCPCS: 77066; G0279; 77062

== ENCOUNTER → 2020-03-18 | Outpatient (CLI) | payer MEDICAID ==
[2020-03-06 10:20] VITALS: BP 128/79
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
== END | disposition home or self-care (01) ==
LOC: CT 10:16
PROVIDERS: ATTEND Physician Assistant Medical
DX: R51 Headache (principal)
CPT/HCPCS: 70450

== ENCOUNTER → 2020-06-13 | Outpatient (CLI) | payer MEDICAID | LOC: LAB 13:45 | PROVIDERS: ATTEND Nurse Anesthetist, Certified Registered | DX: Z01.812 Encounter for preprocedural laboratory examination (principal); Z20.828 Contact with and (suspected) exposure to other viral communicable diseases | CPT/HCPCS: U0003 ==

== ENCOUNTER → 2020-06-17 | Day surgery (SDC) | payer MEDICAID ==
[~2020-06-17] MED LIST changes: +ACETAMINOPHEN 325 MG TABLET PO PRN; +ALBUTEROL SULFATE 2.5 MG/3 ML NEBU. NEB PRN; +ATROPINE 0.5 MG/5 ML DISP.SYRIN. IV PRN; +IV RINGERS SOLUTION,LACTATED 1,000 ML IV SCH; +MIDAZOLAM HCL PF 2 MG/2 ML VIAL. IV PRN; +PROPOFOL 10,000 MCG/ML (20ML) VIAL IV ONE; +diphenhydrAMINE 50 MG/ML VIAL IV PRN
[2020-06-17 14:36] VITALS: BP 127/75
== END | disposition home or self-care (01) ==
LOC: SURG 13:04
PROVIDERS: ATTEND Internal Medicine Gastroenterology
DX: Z12.11 Encounter for screening for malignant neoplasm of colon (principal); K63.5 Polyp of colon; G47.30 Sleep apnea, unspecified; I10 Essential (primary) hypertension; J44.9 Chronic obstructive pulmonary disease, unspecified; M19.90 Unspecified osteoarthritis, unspecified site; K21.9 Gastro-esophageal reflux disease without esophagitis; Z86.010 Personal history of colon polyps; Z90.710 Acquired absence of both cervix and uterus; Z98.890 Other specified postprocedural states; Z98.84 Bariatric surgery status; Z80.0 Family history of malignant neoplasm of digestive organs; E11.65 Type 2 diabetes mellitus with hyperglycemia; Z90.49 Acquired absence of other specified parts of digestive tract; Z90.89 Acquired absence of other organs; Z90.81 Acquired absence of spleen; G47.33 Obstructive sleep apnea (adult) (pediatric); Z87.891 Personal history of nicotine dependence; Z87.11 Personal history of peptic ulcer disease; Z96.652 Presence of left artificial knee joint; I48.91 Unspecified atrial fibrillation; F41.9 Anxiety disorder, unspecified; Z83.0 Family history of human immunodeficiency virus [HIV] disease; Z82.49 Family history of ischemic heart disease and other diseases of the circulatory system; Z53.21 Procedure and treatment not carried out due to patient leaving prior to being seen by health care provider; Z91.81 History of falling; E66.01 Morbid (severe) obesity due to excess calories
CPT/HCPCS: 45385; J2704; J7120

== ENCOUNTER 2020-08-29 11:08 | Emergency (ER) | payer MEDICAID ==
[~2020-08-29] VITALS: Ht 170.2 cm; Wt 90.0 kg
[~2020-08-29 11:08] MED LIST changes: -ACETAMINOPHEN 325 MG TABLET PO PRN; -ALBUTEROL SULFATE 2.5 MG/3 ML NEBU. NEB PRN; -ATROPINE 0.5 MG/5 ML DISP.SYRIN. IV PRN; -IV RINGERS SOLUTION,LACTATED 1,000 ML IV SCH; -MIDAZOLAM HCL PF 2 MG/2 ML VIAL. IV PRN; -PROPOFOL 10,000 MCG/ML (20ML) VIAL IV ONE; -diphenhydrAMINE 50 MG/ML VIAL IV PRN
[2020-08-29] MEDS ORDERED: DEXAMETHASONE SOD PHOS 10 MG/ML VIAL. IV ONE (12:00)
[2020-08-29] MEDS ORDERED: IPRATRPIUM/ALBUTEROL 0.5/2.5MG 3 ML NEBU. NEB ONE (12:00)
[2020-08-29 12:10] VITALS: BP 137/83
[2020-08-29 12:17] LABS: BASO # 0.1 x10^3/uL (0.0-0.2); BASO % 1 % (0-3); EOS # 0.4 x10^3/uL (0.0-0.7); EOS % 6 % (0-3); HEMATOCRIT 42.1 % (36.0-47.0); HEMOGLOBIN 13.4 g/dL (12.0-15.5); LYMPH % 41 % (24-48); MEAN CORPUSCULAR HEMOGLOBIN 26 pg (25-35); MEAN CORPUSCULAR HGB CONC 32 g/dL (31-37); MEAN CORPUSCULAR VOLUME 81 fL (79-100); MONO # 0.3 x10^3/uL (0.0-1.1); MONO % 5 % (0-9); NEUT # 3.5 x10^3uL (1.8-7.7); NEUT % 48 % (31-73); PLATELET COUNT 201 x10^3/uL (140-400); RED BLOOD COUNT 5.19 x10^6/uL (3.50-5.40); RED CELL DISTRIBUTION WIDTH 14.9 % (11.5-14.5); WHITE BLOOD COUNT 7.3 x10^3/uL (4.0-11.0)
--- NOTE | 2020-08-29 12:22 | EKG ---
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
[2020-08-29 12:25] LABS: CALCIUM 9.4 mg/dL (8.5-10.1); GFR 67.5; POTASSIUM 3.6 mmol/L (3.5-5.1)
[2020-08-29 12:29] LABS: ALBUMIN 3.5 g/dL (3.4-5.0); TOTAL BILIRUBIN 0.4 mg/dL (0.2-1.0)
--- NOTE | 2020-08-29 13:01 | RAD ---
XR CHEST 1V CLINICAL INDICATIONS: Reason: Shortness of breath COMPARISON: March 06, 2020 Findings: No acute lung infiltrate or pleural effusion or pulmonary edema or lung mass or pneumothora x is seen. The heart size, pulmonary vasculature, mediastinum and both mario are unremarkable. IMPRESSION: No acute radiographic abnormality is seen. Electronically signed by: Salomón Martinez MD (08/29/2020 12:59 PM) [id number]
[2020-08-29] MEDS ORDERED: AZIT250T PO (13:07)
[2020-08-29] MEDS ORDERED: PRED50TA PO (13:07)
--- NOTE | 2020-08-29 13:07 | PHYS DOC ---
Past History Past Medical History: A-Fib, Asthma, Other Additional Past Medical Histor: SARCOIDOSIS Past Surgical History: Gastric Bypass, Other Additional Past Surgical Histo: GASTRIC SLEEVE Smoking: Non-smoker Alcohol Use: None Drug Use: Marijuana Adult General Chief Complaint Chief Complaint: ASTHMA HPI HPI Patient is a 65-year-old female who presents to the emergency room complaining of asthma exacerbation. Patient states that on Tuesday she started having increased wheezing and shortness of breath. This is very consistent with her normal asthma exacerbations. She has had increased mucus production. Patient also has COPD. She states her mucus has turned from a clear color to a yellow. She denies any chest pain. She does not have any fever, chills, sweats, URI symptoms, headache, nausea, vomiting, diarrhea. She recently was tested for the coronavirus and was negative. She has been using her nebulizer treatments at home since Tuesday with some relief. She is also been using her inhaler. Review of Systems Review of Systems Complete ROS is negative unless otherwise documented in HPI Current Medications Current Medications Current Medications Medications (Trade) Dose Ordered Sig/Saulo Start Time Stop Time Status Last Admin Dose Admin Albuterol/ Ipratropium (Duoneb) 3 ml 1X ONCE 08/29/20 12:00 08/29/20 12:03 DC 08/29/20 12:14 3 ML Dexamethasone Sodium Phosphate (Decadron) 10 mg 1X ONCE 08/29/20 12:00 08/29/20 12:03 DC 08/29/20 12:00 10 MG Allergies Allergies Allergies Coded Allergies Type Severity Reaction Last Updated Verified No Known Drug Allergies 01/04/16 No Physical Exam Physical Exam General: Awake, alert, NAD. Well Nourished, well hydrated. Cooperative HEENT: Atraumatic, EOMI, PERRL, airway patent, moist oral mucosa Neck: Supple, trachea midline Respiratory: Normal effort, minimal wheezing bilateral lungs diffusely, no crackles, no respiratory distress CV: RRR, no murmur, cap refill <2 GI: Soft, nondistended, nontender, no masses MSK: No obvious deformities Skin: Warm, dry, intact Neuro: A&O x3, speech NL, sensory and motor grossly intact, no focal deficits Psych: Normal affect, normal mood, not suicidal or homicidal Current Patient Data Vital Signs Vital Signs Date Time Temp Pulse Resp B/P (MAP) Pulse Ox O2 Delivery O2 Flow Rate FiO2 08/29/20 12:14 94 Room Air 08/29/20 12:10 82 16 137/83 (101) 08/29/20 11:10 97.4 Lab Results Laboratory Tests Test 08/29/20 12:00 White Blood Count 7.3 x10^3/uL (4.0-11.0) Red Blood Count 5.19 x10^6/uL (3.50-5.40) Hemoglobin 13.4 g/dL (12.0-15.5) Hematocrit 42.1 % (36.0-47.0) Mean Corpuscular Volume 81 fL (79-100) Mean Corpuscular Hemoglobin 26 pg (25-35) Mean Corpuscular Hemoglobin Concent 32 g/dL (31-37) Red Cell Distribution Width 14.9 % (11.5-14.5) H Platelet Count 201 x10^3/uL (140-400) Neutrophils (%) (Auto) 48 % (31-73) Lymphocytes (%) (Auto) 41 % (24-48) Monocytes (%) (Auto) 5 % (0-9) Eosinophils (%) (Auto) 6 % (0-3) H Basophils (%) (Auto) 1 % (0-3) Neutrophils # (Auto) 3.5 x10^3uL (1.8-7.7) Lymphocytes # (Auto) 3.0 x10^3/uL (1.0-4.8) Monocytes # (Auto) 0.3 x10^3/uL (0.0-1.1) Eosinophils # (Auto) 0.4 x10^3/uL (0.0-0.7) Basophils # (Auto) 0.1 x10^3/uL (0.0-0.2) Sodium Level 142 mmol/L (136-145) Potassium Level 3.6 mmol/L (3.5-5.1) Chloride Level 107 mmol/L (98-107) Carbon Dioxide Level 28 mmol/L (21-32) Anion Gap 7 (6-14) Blood Urea Nitrogen 11 mg/dL (7-20) Creatinine 1.0 mg/dL (0.6-1.0) Estimated GFR (Cockcroft-Gault) 67.5 BUN/Creatinine Ratio 11 (6-20) Glucose Level 101 mg/dL (70-99) H Calcium Level 9.4 mg/dL (8.5-10.1) Total Bilirubin 0.4 mg/dL (0.2-1.0) Aspartate Amino Transferase (AST) 14 U/L (15-37) L Alanine Aminotransferase (ALT) 22 U/L (14-59) Alkaline Phosphatase 105 U/L (46-116) Troponin I Quantitative < 0.017 ng/mL (0-0.055) Total Protein 7.0 g/dL (6.4-8.2) Albumin 3.5 g/dL (3.4-5.0) Albumin/Globulin Ratio 1.0 (1.0-1.7) EKG EKG [] Radiology/Procedures Radiology/Procedures [] Heart Score Risk Factors: Risk Factors: DM, Current or recent (<one month) smoker, HTN, HLP, family history of CAD, obesity. Risk Scores: Risk Factors: DM, Current or recent (<one month) smoker, HTN, HLP, family history of CAD, obesity. Course & Med Decision Making Course & Med Decision Making Pertinent Labs and Imaging studies reviewed. (See chart for details) Patient 65-year-old female presents the emergency room complaining of an asthma exacerbation. Patient also has COPD and this could be a a mix of an asthma and a COPD exacerbation. Patient was given steroids. X-ray does not show pneumonia. Patient is not febrile does not need further work-up. She was given a single breathing treatment here in the emergency room. Will prescribe her steroids and azithromycin at home for likely COPD/asthma exacerbation. Patient's test results and vitals while in the ED were fully reviewed and discussed with the patient. Patient is stable and at this time does not need admission to the hospital. We have discussed strict return precautions and the importance of following up with their Primary Care Physician. Patient stated understanding and was given an opportunity to ask any questions. Patient is in agreement with plan. Dragon Disclaimer Dragon Disclaimer This electronic medical record was generated, in whole or in part, using a voice recognition dictation system. Departure Departure: Impression: Primary Impression: Asthma exacerbation Disposition: 01 DC HOME SELF CARE/HOMELESS Condition: STABLE Referrals: MUNA MEEHAN (PCP) Patient Instructions: Asthma Attacks, Prevention, Asthma, Adult Scripts Azithromycin (ZITHROMAX) 250 Mg Tablet 1 PKG PO UD for asthma, #1 PKG Prov: GARRETT MENARD MD 08/29/20 Prednisone (PREDNISONE) 50 Mg Tablet 1 TAB PO DAILY for asthma, #5 TAB You received this medication in the emergency room today. You will starting your next dose tomorrow. Prov: GARRETT MENARD MD 08/29/20 GARRETT MENARD MD Aug 29, 2020 13:07
== END 2020-08-29 13:12 | disposition home or self-care (01) ==
LOC: ER 11:08
DX: J45.901 Unspecified asthma with (acute) exacerbation (principal); I48.91 Unspecified atrial fibrillation; Z98.84 Bariatric surgery status
CPT/HCPCS: 36415; 71045; 80053; 84484; 85025; 93005; 94640; 96374; 99285; J1100

== ENCOUNTER 2020-09-29 13:03 | Emergency (ER) | payer MEDICAID ==
[~2020-09-29] VITALS: Ht 170.2 cm; Wt 103.0 kg
[~2020-09-29 13:03] MED LIST changes: +AZIT250T PO
[2020-09-29] MEDS ORDERED: methylPREDNISolone SOD SUCC PF 125 MG/2 ML VIAL. ONE (13:16)
[2020-09-29] MEDS ORDERED: IPRATRPIUM/ALBUTEROL 0.5/2.5MG 3 ML NEBU. ONE (13:17)
[2020-09-29] MEDS ORDERED: ALBUTEROL SULFATE 2.5 MG/3 ML NEBU. ONE (13:25)
[2020-09-29] MEDS ORDERED: methylPREDNISolone SOD SUCC PF 125 MG/2 ML VIAL. IV ONE (13:30)
[2020-09-29] MEDS ORDERED: IPRATRPIUM/ALBUTEROL 0.5/2.5MG 3 ML NEBU. NEB ONE (13:30)
[2020-09-29 13:39] LABS: BASO % 1 % (0-3); EOS % 0 % (0-3); HEMOGLOBIN 12.9 g/dL (12.0-15.5); LYMPH % 17 % (24-48); MEAN CORPUSCULAR HEMOGLOBIN 26 pg (25-35); MEAN CORPUSCULAR HGB CONC 32 g/dL (31-37); MEAN CORPUSCULAR VOLUME 83 fL (79-100); MONO # 0.2 x10^3/uL (0.0-1.1); MONO % 3 % (0-9); NEUT # 4.6 x10^3uL (1.8-7.7); NEUT % 79 % (31-73); PLATELET COUNT 228 x10^3/uL (140-400); RED BLOOD COUNT 4.97 x10^6/uL (3.50-5.40); RED CELL DISTRIBUTION WIDTH 15.4 % (11.5-14.5); WHITE BLOOD COUNT 5.8 x10^3/uL (4.0-11.0)
[2020-09-29 13:48] LABS: CALCIUM 9.6 mg/dL (8.5-10.1); CREATININE 1.1 mg/dL (0.6-1.0); GFR 60.5; POTASSIUM 4.4 mmol/L (3.5-5.1)
[2020-09-29 13:54] LABS: ALBUMIN 3.4 g/dL (3.4-5.0); ALBUMIN/GLOBULIN RATIO 0.9 (1.0-1.7); TOTAL BILIRUBIN 0.3 mg/dL (0.2-1.0); TOTAL PROTEIN 7.3 g/dL (6.4-8.2)
--- NOTE | 2020-09-29 14:12 | RAD ---
INDICATION: Reason: sob / Spl. Instructions: / History: COMPARISON: August 29, 2020 FINDINGS: Single view of chest obtained. Cardiomediastinal silhouette is similar to prior. No definite new region of airspace consolidation or pulmonary edema. IMPRESSION: * No focal airspace consolidation or edema. Electronically signed by: Yahir Kaur MD (09/29/2020 2:10 PM) [id number]
--- NOTE | 2020-09-29 14:16 | PHYS DOC ---
Past History Past Medical History: A-Fib, Asthma, Other Additional Past Medical Histor: SARCOIDOSIS Past Surgical History: Gastric Bypass, Other Additional Past Surgical Histo: GASTRIC SLEEVE Smoking: Non-smoker Alcohol Use: None Drug Use: Marijuana Adult General Chief Complaint Chief Complaint: SHORTNESS OF BREATH [facility] Patient is a 65F with a past medical history of A. fib and asthma now presenting to emergency department planing the onset of shortness of breath. Patient states her last 48 hours she is having worsening sensation of shortness of breath feeling like she is having an asthma exacerbation. Patient states that she has been using her nebulizer and albuterol at home without any significant improvement of her symptoms. Denies any associated chest pain, fever, chills, nausea, vomiting. Denies any history of similar symptoms. Review of Systems Review of Systems Constitutional: Denies fever or chills [] Eyes: Denies change in visual acuity, redness, or eye pain [] HENT: Denies nasal congestion or sore throat [] Respiratory: Denies cough or shortness of breath [] Cardiovascular: No additional information not addressed in HPI [] GI: Denies abdominal pain, nausea, vomiting, bloody stools or diarrhea [] : Denies dysuria or hematuria [] Musculoskeletal: Denies back pain or joint pain [] Integument: Denies rash or skin lesions [] Neurologic: Denies headache, focal weakness or sensory changes [] Endocrine: Denies polyuria or polydipsia [] All other systems were reviewed and found to be within normal limits, except as documented in this note. Current Medications Current Medications Current Medications Medications (Trade) Dose Ordered Sig/Saulo Start Time Stop Time Status Last Admin Dose Admin Albuterol Sulfate (Ventolin) 2.5 mg STK-MED ONCE 09/29/20 13:25 09/29/20 13:26 DC Albuterol/ Ipratropium (Duoneb) 3 ml 1X ONCE 09/29/20 13:30 09/29/20 13:38 DC Methylprednisolone Sodium Succinate (SOLU-Medrol 125MG VIAL) 125 mg 1X ONCE 09/29/20 13:30 09/29/20 13:38 DC 09/29/20 13:17 125 MG Allergies Allergies Allergies Coded Allergies Type Severity Reaction Last Updated Verified No Known Drug Allergies 09/29/20 No Physical Exam Physical Exam Constitutional: Well developed, well nourished, no acute distress, non-toxic appearance. [] HENT: Normocephalic, atraumatic, bilateral external ears normal, oropharynx moist, no oral exudates, nose normal. [] Eyes: PERRLA, EOMI, conjunctiva normal, no discharge. [] Neck: Normal range of motion, no tenderness, supple, no stridor. [] Cardiovascular:Heart rate regular rhythm, no murmur [] Lungs & Thorax: Severe bilateral wheezing with diminished breath sounds bilaterally. Abdomen: Bowel sounds normal, soft, no tenderness, no masses, no pulsatile masses. [] Skin: Warm, dry, no erythema, no rash. [] Back: No tenderness, no CVA tenderness. [] Extremities: No tenderness, no cyanosis, no clubbing, ROM intact, no edema. [] Neurologic: Alert and oriented X 3, normal motor function, normal sensory function, no focal deficits noted. [] Psychologic: Affect normal, judgement normal, mood normal. [] Current Patient Data Vital Signs Vital Signs Date Time Temp Pulse Resp B/P (MAP) Pulse Ox O2 Delivery O2 Flow Rate FiO2 09/29/20 13:27 98.4 79 22 161/103 (122) 96 Room Air Lab Results Laboratory Tests Test 09/29/20 13:23 White Blood Count 5.8 x10^3/uL (4.0-11.0) Red Blood Count 4.97 x10^6/uL (3.50-5.40) Hemoglobin 12.9 g/dL (12.0-15.5) Hematocrit 41.0 % (36.0-47.0) Mean Corpuscular Volume 83 fL (79-100) Mean Corpuscular Hemoglobin 26 pg (25-35) Mean Corpuscular Hemoglobin Concent 32 g/dL (31-37) Red Cell Distribution Width 15.4 % (11.5-14.5) H Platelet Count 228 x10^3/uL (140-400) Neutrophils (%) (Auto) 79 % (31-73) H Lymphocytes (%) (Auto) 17 % (24-48) L Monocytes (%) (Auto) 3 % (0-9) Eosinophils (%) (Auto) 0 % (0-3) Basophils (%) (Auto) 1 % (0-3) Neutrophils # (Auto) 4.6 x10^3uL (1.8-7.7) Lymphocytes # (Auto) 1.0 x10^3/uL (1.0-4.8) Monocytes # (Auto) 0.2 x10^3/uL (0.0-1.1) Eosinophils # (Auto) 0.0 x10^3/uL (0.0-0.7) Basophils # (Auto) 0.0 x10^3/uL (0.0-0.2) Sodium Level 144 mmol/L (136-145) Potassium Level 4.4 mmol/L (3.5-5.1) Chloride Level 109 mmol/L (98-107) H Carbon Dioxide Level 22 mmol/L (21-32) Anion Gap 13 (6-14) Blood Urea Nitrogen 8 mg/dL (7-20) Creatinine 1.1 mg/dL (0.6-1.0) H Estimated GFR (Cockcroft-Gault) 60.5 BUN/Creatinine Ratio 7 (6-20) Glucose Level 112 mg/dL (70-99) H Calcium Level 9.6 mg/dL (8.5-10.1) Total Bilirubin 0.3 mg/dL (0.2-1.0) Aspartate Amino Transferase (AST) 21 U/L (15-37) Alanine Aminotransferase (ALT) 24 U/L (14-59) Alkaline Phosphatase 102 U/L (46-116) Total Protein 7.3 g/dL (6.4-8.2) Albumin 3.4 g/dL (3.4-5.0) Albumin/Globulin Ratio 0.9 (1.0-1.7) L EKG EKG [] Radiology/Procedures Radiology/Procedures [] Heart Score Risk Factors: Risk Factors: DM, Current or recent (<one month) smoker, HTN, HLP, family history of CAD, obesity. Risk Scores: Risk Factors: DM, Current or recent (<one month) smoker, HTN, HLP, family history of CAD, obesity. Course & Med Decision Making Course & Med Decision Making Pertinent Labs and Imaging studies reviewed. (See chart for details) 65F presented to emergency department with what appears to be an acute asthma exacerbation. Patient is tripoding and using accessory muscles but is able to speak in full sentences at this time. Significant wheezing bilaterally with decreased air movement does raise concern for severe asthma exacerbation. Patient be given triple DuoNeb therapy and IV Solu-Medrol. Will obtain labs and I am also recommending an ordering for BiPAP to be administered on arrival. Patient was was remarkable for dramatic improvement of her symptoms after getting DuoNeb and steroids. Patient did complain of left anterior chest tightness in the anterior chest with tenderness in the area. Troponin was negative and symptoms completely resolved. Was pleuritic but the patient is otherwise PERC negative this point no indication for PE. Patient symptoms are rapidly improved with no significant tachycardia or hypoxia afterwards and the patient is adamantly asking to be discharged home Dragon Disclaimer Dragon Disclaimer This electronic medical record was generated, in whole or in part, using a voice recognition dictation system. Departure Departure: Impression: Primary Impression: Asthma exacerbation Disposition: 01 DC HOME SELF CARE/HOMELESS Condition: GOOD Referrals: MUNA MEEHAN (PCP) Patient Instructions: Asthma, Adult Additional Instructions: EMERGENCY DEPARTMENT GENERAL DISCHARGE INSTRUCTIONS Thank you for coming to [facility] Emergency Department (ED) today and trusting us with you care. We trust that you had a positive experience in our Emergency Department. If you wish to speak to the department management, you may call the Director at [phone]. YOUR FOLLOW UP INSTRUCTIONS ARE FOLLOWS: 1. Do you have a private Doctor? If you do not have a private doctor, please ask for a resource list of physicians or clinics that may be able to assist you with follow up care. 2. The Emergency Physicain has interpreted your x-rays. The X-Ray specialist will also review them. If there is a change in the findings, you will be notified in 48 hours when at all possible. 3. A lab test or culture has been done, your results will be reviewed and you will be notified if you need a change in treatment. ADDITIONAL INSTRUCTIONS AND INFORMATION: 1. Your care today has been supervised by a physician who is specially trained in emergency care. Many problems require more than one evaluation for a complete diagnosis and treatment. We recommend that you schedule your follow up appointment as recommended to ensure complete treatment of you illness or injury. If you are unable to obtain follow up care and continue to have a problem, or if your condition worsens, we recommend that you return to the ED. 2. We are not able to safely determine your condition over the phone nor are we able to give sound medical advice over the phone. For these safety reasons, if you call for medical advice we will ask you to come to the ED for further evaluation. 3. If you have any questions regarding these discharge instructions please call the ED at [phone]. SAFETY INFORMATION: In the interest of safety, wellness, and injury prevention; we encourage you to wear your sealbelt, if you smoke; quite smoking, and we encourage family to use a protective helmet for bicycling and other sporting events that present an increased risk for head injury. IF YOUR SYMPTOMS WORSEN OR NEW SYMPTOMS DEVELOP, OR YOU HAVE CONCERNS ABOUT YOUR CONDITION; OR IF YOUR CONDITION WORSENS WHILE YOU ARE WAITING FOR YOUR FOLLOW UP APPOINTMENT; EITHER CONTACT YOUR PRIMARY CARE DOCTOR, THE PHYSICIAN WHOSE NAME AND NUMBER YOU WERE GIVEN, OR RETURN TO THE ED IMMEDIATELY. Scripts Prednisone (PREDNISONE) 50 Mg Tablet 20 MG PO DAILY for shortness of breath for 5 Days, #2 TAB Prov: ARELI CHEW MD 09/29/20 ARELI CHEW MD Sep 29, 2020 14:16
[2020-09-29] MEDS ORDERED: MORPHINE SULFATE 4 MG/ML DISP.SYRIN. IV ONE (15:45)
[2020-09-29 16:02] VITALS: BP 165/89
[2020-09-29] MEDS ORDERED: PRED50TA PO (16:07)
--- NOTE | 2020-09-29 17:36 | EKG ---
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
== END 2020-09-29 16:15 | disposition home or self-care (01) ==
LOC: ER 13:03
DX: J45.901 Unspecified asthma with (acute) exacerbation (principal); I48.91 Unspecified atrial fibrillation; Z98.84 Bariatric surgery status
CPT/HCPCS: 36415; 71045; 80053; 84484; 85025; 93005; 94640; 94660; 96374; 96375; 99285; J2270; J2930

== ENCOUNTER → 2020-11-17 | Outpatient (CLI) | payer MEDICAID ==
--- NOTE | 2020-11-17 07:56 | EKG ---
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
== END ==
LOC: EKG 07:37
PROVIDERS: ATTEND Physician Assistant Medical
DX: M17.10 Unilateral primary osteoarthritis, unspecified knee (principal)
CPT/HCPCS: 93005

== ENCOUNTER 2021-03-20 10:37 | Emergency (ER) | payer MEDICAID ==
[~2021-03-20] VITALS: Ht 170.2 cm; Wt 91.1 kg
[2021-03-20 10:45] VITALS: BP 147/67
--- NOTE | 2021-03-20 11:06 | PHYS DOC ---
Past History Past Medical History: A-Fib, Asthma, Other Additional Past Medical Histor: SARCOIDOSIS Past Surgical History: Cholecystectomy, Gastric Bypass, Knee Replacement, Other Additional Past Surgical Histo: GASTRIC SLEEVE, BILATERAL KNEE REPLACEMENT Smoking: Non-smoker Alcohol Use: None Drug Use: Marijuana General Adult EDM: Chief Complaint: KNEE INJURY HPI: HPI: 65-year-old female presents with right knee pain. The patient had a knee replacement on this knee back in November. She has been having intermittent pain but she expected that. Over the last week she has had frequent swelling and pain of the right lateral knee. It seems to come and go. The pain has become more persistent however. She has been unable to get into her orthopedic surgeon because she had to cancel the appointment due to a in the family. The patient is able to walk but it is painful. She denies any recent falls or trauma. Denies fever or chills. Review of Systems: Review of Systems: Constitutional: Denies fever or chills Eyes: Denies change in visual acuity HENT: Denies nasal congestion or sore throat Respiratory: Denies cough or shortness of breath Cardiovascular: Denies chest pain or edema GI: Denies abdominal pain, nausea, vomiting, bloody stools or diarrhea : Denies dysuria Musculoskeletal: Right knee pain Integument: Denies rash Neurologic: Denies headache, focal weakness or sensory changes Endocrine: Denies polyuria or polydipsia Lymphatic: Denies swollen glands Psychiatric: Denies depression or anxiety Allergies: Allergies: Allergies Coded Allergies Type Severity Reaction Last Updated Verified No Known Drug Allergies 09/29/20 No Physical Exam: PE: Constitutional: Well developed, well nourished, obese, no acute distress, non- toxic appearance. [] HENT: Normocephalic, atraumatic, bilateral external ears normal, oropharynx moist, no oral exudates, nose normal. [] Eyes: PERRLA, EOMI, conjunctiva normal, no discharge. [] Neck: Normal range of motion, no tenderness, supple, no stridor. [] Cardiovascular: Heart rate regular rhythm, no murmur [] Lungs & Thorax: Bilateral breath sounds clear to auscultation [] Abdomen: Bowel sounds normal, soft, no tenderness, no masses, no pulsatile masses. [] Skin: Warm, dry, no erythema, no rash. [] Back: No tenderness, no CVA tenderness. [] Extremities: Surgical scars of the bilateral knees well-healed. Right knee slightly more swollen than left. Pain with loading and weightbearing. No obvious deformity. [] Neurologic: Alert and oriented X 3, normal motor function, normal sensory function, no focal deficits noted. [] Psychologic: Affect normal, judgement normal, mood normal. [] Current Patient Data: Vital Signs: Vital Signs Date Time Temp Pulse Resp B/P (MAP) Pulse Ox O2 Delivery O2 Flow Rate FiO2 03/20/21 10:45 98.1 65 20 147/67 98 Room Air EKG: EKG: [] Radiology/Procedures: Radiology/Procedures: [] Impressions: EXAM: Right knee, 4 views HISTORY: Right knee pain. COMPARISON: None. FINDINGS: An arthroplasty appears to have femoral and tibial components. No patellar resurfacing component is identified. Alignment is maintained. Periprosthetic lucency is suggested along the femoral component laterally, but this is likely an artifact on comparison with the lateral projection. No fractures are identified. There is a small joint effusion. IMPRESSION: 1. Small joint effusion. No clear cause for pain is identified. Comparison with postplacement radiographs is recommended to exclude developing periprosthetic lucency along the femoral component. Electronically signed by: Viola Sterling MD (03/20/2021 11:48 AM) [id number] DICTATED AND SIGNED BY: ENE STERLING MD DATE: 03/20/21 1144 CC: JUNIOR GOMES DO; MUNA MEEHAN ~MTH0 0 EXAM: Right lower extremity venous Doppler. HISTORY: Right lower extremity pain/swelling. Recent orthopedic surgery. COMPARISON: None. FINDINGS: Grayscale and Doppler analysis of the right lower extremity deep venous system was performed with graded compression and augmentation. The common femoral, greater saphenous, superficial femoral, popliteal and calf veins were assessed. There is no evidence of deep venous thrombosis. IMPRESSION: 1. No evidence of deep venous thrombosis. Electronically signed by: Viola Sterling MD (03/20/2021 11:33 AM) [id number] DICTATED AND SIGNED BY: ENE STERLING MD DATE: 03/20/21 1132 CC: JUNIOR GOMES DO; MUNA MEEHAN ~MTH0 0 Heart Score: C/O Chest Pain: N/A Risk Factors: Risk Factors: DM, Current or recent (<one month) smoker, HTN, HLP, family history of CAD, obesity. Risk Scores: Score 0 - 3: 2.5% MACE over next 6 weeks - Discharge Home Score 4 - 6: 20.3% MACE over next 6 weeks - Admit for Clinical Observation Score 7 - 10: 72.7% MACE over next 6 weeks - Early Invasive Strategies Course & Med Decision Making: Course & Med Decision Making Pertinent Labs and Imaging studies reviewed. (See chart for details) The patient's ultrasound negative for DVT, x-ray negative for acute findings though they suggest comparison with post surgical films to rule out developing lucency. See official read for more details. Having the patient wear these results. She will follow-up with her surgeon. I will discharge her with a prescription of [place] 5/325. She is stable for discharge at this time. [] Dragon Disclaimer: Dragon Disclaimer: This electronic medical record was generated, in whole or in part, using a voice recognition dictation system. Departure Departure: Impression: Primary Impression: Right knee pain Qualified Codes: M25.561 - Pain in right knee Disposition: HOME / SELF CARE / HOMELESS Condition: STABLE Referrals: MUNA MEEHAN (PCP) Patient Instructions: Knee Pain, [id number] Scripts Hydrocodone/Acetaminophen (Hydrocodone-Acetamin 5-325 mg) 1 Each Tablet 1 EACH PO Q4-6HRS PRN for PAIN, #10 TAB Prov: JUNIOR GOMES DO 03/20/21 JUNIOR GOMES DO Mar 20, 2021 11:06
--- NOTE | 2021-03-20 11:35 | RAD ---
EXAM: Right lower extremity venous Doppler. HISTORY: Right lower extremity pain/swelling. Recent orthopedic surgery. COMPARISON: None. FINDINGS: Grayscale and Doppler analysis of the right lower extremity deep venous system was performe d with graded compression and augmentation. The common femoral, greater saphenous, superficial femora l, popliteal and calf veins were assessed. There is no evidence of deep venous thrombosis. IMPRESSION: 1. No evidence of deep venous thrombosis. Electronically signed by: Viola Sterling MD (03/20/2021 11:33 AM) [id number]
--- NOTE | 2021-03-20 11:51 | RAD ---
EXAM: Right knee, 4 views HISTORY: Right knee pain. COMPARISON: None. FINDINGS: An arthroplasty appears to have femoral and tibial components. No patellar resurfacing component is i dentified. Alignment is maintained. Periprosthetic lucency is suggested along the femoral component l aterally, but this is likely an artifact on comparison with the lateral projection. No fractures are identified. There is a small joint effusion. IMPRESSION: 1. Small joint effusion. No clear cause for pain is identified. Comparison with postplacement radiogr aphs is recommended to exclude developing periprosthetic lucency along the femoral component. Electronically signed by: Viola Sterling MD (03/20/2021 11:48 AM) [id number]
[2021-03-20] MEDS ORDERED: HYDR-2759 PO (11:59)
== END 2021-03-20 12:10 | disposition home or self-care (01) ==
LOC: ER 10:37
DX: M25.561 Pain in right knee (principal); R22.41 Localized swelling, mass and lump, right lower limb; I48.91 Unspecified atrial fibrillation; J45.909 Unspecified asthma, uncomplicated; Z98.84 Bariatric surgery status; Z96.653 Presence of artificial knee joint, bilateral
CPT/HCPCS: 73564; 93971; 99284

== ENCOUNTER 2021-04-28 08:37 | Emergency (ER) | payer MEDICAID ==
[~2021-04-28] VITALS: Ht 170.2 cm; Wt 89.4 kg
[~2021-04-28 08:37] MED LIST changes: +HYDR-2759 PO
[2021-04-28] MEDS ORDERED: IV NORMAL SALINE 1,000ML 1,000 ML IV ONE (09:15)
--- NOTE | 2021-04-28 09:17 | PHYS DOC ---
Past History Past Medical History: A-Fib, Asthma, High Cholesterol, Hypertension, Other Additional Past Medical Histor: SARCOIDOSIS Past Surgical History: Cholecystectomy, Gastric Bypass, Knee Replacement, Other Additional Past Surgical Histo: GASTRIC SLEEVE, BILATERAL KNEE REPLACEMENT Smoking: Non-smoker Alcohol Use: None Drug Use: None General Adult EDM: Chief Complaint: MULTIPLE COMPLAINTS HPI: HPI: 65-year-old female presents with 3-day history of intermittent dizziness, dyspnea with exertion, and tingling in right arm and leg that is worse when she has been walking. Patient also reports some left anterior chest wall discomfort which is reproducible on palpation. Patient also complaining of chronic right knee pain. Patient does have a history of total knee arthroplasty and has had continued pain to that area. Patient has been seen in the emergency department with report of a "fracture" noted on the x-ray. Patient was to follow with her orthopedic surgeon however he has currently been out of town. Denies any recent trauma. Denies use of blood thinners. Denies headache. Denies fever or chills. Denies cough. Patient reports she uses a cane with ambulation however is not currently using any kind of splint or brace. Review of Systems: Review of Systems: Constitutional: Denies fever or chills Eyes: Denies redness or eye pain HENT: Denies nasal congestion or sore throat Respiratory: Denies cough; reports dyspnea with exertion Cardiovascular: Denies palpitations; reports left lower anterior chest wall discomfort GI: Denies abdominal pain, nausea, or vomiting : Denies dysuria or hematuria Musculoskeletal: Denies back pain or joint pain Integument: Denies rash or skin lesions Neurologic: Denies headache or focal weakness; reports dizziness and tingling in right arm and right leg Complete systems were reviewed and found to be within normal limits, except as documented in this note. Allergies: Allergies: Allergies Coded Allergies Type Severity Reaction Last Updated Verified No Known Drug Allergies 09/29/20 No Physical Exam: PE: Constitutional: Well developed, well nourished, no acute distress, non-toxic appearance HENT: Normocephalic, atraumatic Eyes: PERRL, EOMI, conjunctiva normal, no discharge, no nystagmus Neck: Normal range of motion, supple Lungs & Thorax: No respiratory distress, equal chest rise and fall, left anterior chest wall tenderness on palpation Abdomen: Soft, no tenderness, no guarding/rebound tenderness/distention Skin: Warm, dry, no erythema, no rash Extremities: Right anterior knee tenderness with pain on range of motion, ROM intact, no edema, right radial pulse +2, right DP & PT pulses +2 Neurologic: Alert and oriented X 3, normal motor function, normal sensory function, no focal deficits noted Psychologic: Affect normal, judgment normal Current Patient Data: Vital Signs: Vital Signs Date Time Temp Pulse Resp B/P (MAP) Pulse Ox O2 Delivery O2 Flow Rate FiO2 04/28/21 08:45 98.3 59 24 120/64 (82) 99 Room Air EKG: EKG: @0915 Sinus bradycardia at 50bpm, NO ST elevation, QRS 68ms, QT/QTc 444/407ms Radiology/Procedures: Radiology/Procedures: CT HEAD W/O No acute intracranial hemorrhage. Ventriculomegaly, out of proportion to sulcal volume loss, may reflect underlying normal pressure hydrocephalus. Findings are stable. Low attenuation in the periventricular white matter is suggestive of chronic small vessel ischemic changes. Findings are stable. CTA CHEST No pulmonary embolism, aortic aneurysm, or aortic dissection Mild emphysematous change. Stable left lower lobe pulmonary nodules. Heart Score: C/O Chest Pain: N/A Course & Med Decision Making: Course & Med Decision Making Pertinent Labs and Imaging studies reviewed. (See chart for details) Patient presents with multiple complaints. Patient primarily concerned given dizziness. Patient neurologically intact. NIHSS 0. EKG stable. Labs obtained and posted to chart. CT head without acute process. CTA chest negative. Patient with chronic right knee pain. Patient had been seen on 03/20/21 for knee pain. Per [facility] review from 03/20/21: X-ray with small joint effusion and no definitive fracture appreciated. Venous Doppler also negative. Knee immobilizer placed for comfort until patient can follow with orthopedics. Patient stable for discharge with outpatient follow-up with PCP/orthopedics. Discussed findings and plan with patient, who acknowledges understanding and agreement. Radha Disclaimer: Radha Disclaimer: This electronic medical record was generated, in whole or in part, using a voice recognition dictation system. Splinting Splinting : Location: Right knee Pre-Made Type: knee immobilizer Pre-Proc Neuro Vasc Exam: normal Post-Proc Neuro Vasc Exam: normal, unchanged from pre-exam Departure Departure: Impression: Primary Impression: Dizziness Additional Impressions: Chronic pain of right knee Acute chest wall pain Disposition: HOME / SELF CARE / HOMELESS Condition: STABLE Referrals: MUNA MEEHAN (PCP) LEAH ZUÑIGA MD Patient Instructions: Chest Wall Pain, [id number]-[id number], Dizziness, Ktnj-jy-Hkhx, Knee Immobilizer, Shyu-yy-Edmw, Knee Pain, Utwb-[id number] Additional Instructions: Wear knee immobilizer as neeed until you follow with your orthopedic surgeon. NIHSS - ED NIH Stroke Scale: NIH Stroke Scale Response (Comments) Value Level of Consciousness: 0 Alert/Responsive 0 LOC Questions: 0 Answers both correctly 0 LOC Commands: 0 Performs both tasks 0 Best Gaze: 0 Normal 0 Visual: 0 No visual loss 0 Facial Palsy: 0 Normal, symmetrical 0 Motor - Left Arm 0 No drift 0 Motor - Right Arm 0 No drift 0 Motor - Left Leg 0 No drift 0 Motor: Right Leg 0 No drift 0 Limb Ataxia: 0 Absent 0 Sensory: 0 No loss 0 Best Language: 0 Normal 0 Dysathria: 0 Normal 0 Extinction and Inattention: 0 Normal 0 Total 0 CHAVESELMA DO Apr 28, 2021 09:17
[2021-04-28] MEDS ORDERED: IOHEXOL 350 MG/ML 100 ML VIAL. IV ONE (09:30)
[2021-04-28 09:56] LABS: BASO # 0.1 x10^3/uL (0.0-0.2); BASO % 1 % (0-3); EOS # 0.3 x10^3/uL (0.0-0.7); EOS % 5 % (0-3); HEMATOCRIT 37.1 % (36.0-47.0); LYMPH # 2.9 x10^3/uL (1.0-4.8); LYMPH % 46 % (24-48); MEAN CORPUSCULAR HEMOGLOBIN 26 pg (25-35); MEAN CORPUSCULAR HGB CONC 32 g/dL (31-37); MEAN CORPUSCULAR VOLUME 82 fL (79-100); MONO # 0.4 x10^3/uL (0.0-1.1); MONO % 6 % (0-9); NEUT # 2.7 x10^3uL (1.8-7.7); NEUT % 43 % (31-73); PLATELET COUNT 217 x10^3/uL (140-400); RED BLOOD COUNT 4.52 x10^6/uL (3.50-5.40); RED CELL DISTRIBUTION WIDTH 15.7 % (11.5-14.5); WHITE BLOOD COUNT 6.4 x10^3/uL (4.0-11.0)
[2021-04-28 10:02] LABS: CALCIUM 9.2 mg/dL (8.5-10.1); CREATININE 0.7 mg/dL (0.6-1.0); GFR 101.9
[2021-04-28 10:06] LABS: POTASSIUM 4.5 mmol/L (3.5-5.1)
[2021-04-28 10:18] LABS: ALBUMIN 3.4 g/dL (3.4-5.0); ALBUMIN/GLOBULIN RATIO 1.1 (1.0-1.7); MAGNESIUM 2.2 mg/dL (1.8-2.4); TOTAL BILIRUBIN 0.6 mg/dL (0.2-1.0); TOTAL PROTEIN 6.4 g/dL (6.4-8.2)
[2021-04-28 13:05] VITALS: BP 133/65
[2021-04-28 13:09] LABS: BACTERIA,URINE 0 /HPF (0-FEW); BILIRUBIN,URINE NEG (NEG); CLARITY,URINE CLEAR; COLOR,URINE YELLOW; GLUCOSE,URINE NEG (NEG); NITRITE,URINE NEG (NEG); SQUAMOUS EPITHELIAL CELL,UR MOD /LPF; UROBILINOGEN,URINE 0.2 mg/dL (0.2 mg/dL); WBC,URINE OCC /HPF (0-4)
--- NOTE | 2021-04-28 14:01 | EKG ---
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
--- NOTE | 2021-04-28 14:02 | RAD ---
CTA CHEST History: Left chest pain. Rule out PE. Comparison: CT chest 11/21/2017. Technique: CTA of the pulmonary arteries with intravenous contrast. Multiplanar reconstruction includ ing MIPS are provided. Findings: Pulmonary arteries: No pulmonary embolism. Aorta and great vessels: No aneurysm or dissection of the aortic arch or thoracic aorta. Thyroid: No significant abnormalities. Mediastinum and mario: No mediastinal masses or adenopathy is seen. Esophagus: The visualized esophagus is normal. Heart: The heart is normal in size. There is no pericardial effusion. Airways, Lungs, Pleura: Airways are patent. There is mild emphysematous change. There are left lower lobe lateral costophrenic angle nodules measuring 1.1 and 0.5 cm, not significantly changed from 2018 . Upper abdomen: Limited evaluation of the upper abdomen is unremarkable. Osseous structures and soft tissues: Flowing spinal osteophytes. Impression: 1. No pulmonary embolism, aortic aneurysm or aortic dissection. 2. Mild emphysematous change. Stable left lower lobe pulmonary nodules. ------ Exposure: One or more of the following individualized dose reduction techniques were utilized for thi s examination: 1. Automated exposure control 2. Adjustment of the mA and/or kV according to patient size 3. Use of iterative reconstruction technique. Electronically signed by: Dylon Garcias MD (04/28/2021 9:52 AM) [id number]
--- NOTE | 2021-04-28 14:02 | RAD ---
PQRS Compliance Statement: One or more of the following individualized dose reduction techniques were utilized for this examinat ion: 1. Automated exposure control 2. Adjustment of the mA and/or kV according to patient size 3. Use of iterative reconstruction technique CT head without contrast 04/28/2021 9:12 AM INDICATION: Dizziness COMPARISON: CT head 03/18/2020 TECHNIQUE: Multiple axial CT images of the head were obtained from skull base through the vertex with out intravenous contrast. FINDINGS: Head: Mild to moderate ventriculomegaly, out of proportion to sulcal volume loss. No hydrocephalus. Low-att enuation in the periventricular white matter is suggestive of chronic small vessel ischemic changes. There is no hydrocephalus. Young-white matter differentiation is normal. There is no acute intracrania l hemorrhage. There is no mass, mass effect or midline shift. Posterior fossa is normal in appearance . Visualized portions of the orbits are normal. Paranasal sinuses are well aerated. Mastoid air cells a re well aerated. Scalp and calvaria are normal. IMPRESSION: No acute intracranial hemorrhage. Ventriculomegaly, out of proportion to sulcal volume loss, may reflect underlying normal pressure hyd rocephalus. Findings are stable. Low-attenuation in the periventricular white matter is suggestive of chronic small vessel ischemic ch anges. Findings are stable. Electronically signed by: Yanira Bernabe MD (04/28/2021 9:46 AM) [id number]
== END 2021-04-28 13:30 | disposition home or self-care (01) ==
LOC: ER 08:37
DX: R42 Dizziness and giddiness (principal); R07.89 Other chest pain; G89.29 Other chronic pain; M25.561 Pain in right knee; I48.91 Unspecified atrial fibrillation; J45.909 Unspecified asthma, uncomplicated; E78.00 Pure hypercholesterolemia, unspecified; I10 Essential (primary) hypertension; Z98.84 Bariatric surgery status; Z96.653 Presence of artificial knee joint, bilateral
CPT/HCPCS: 29505; 36415; 70450; 71275; 80053; 81001; 82553; 83690; 83735; 84484; 85025; 93005; 96360; 99285; J7030; Q9967

== ENCOUNTER 2021-06-05 09:51 | Emergency (ER) | payer MEDICAID ==
[~2021-06-05] VITALS: Ht 170.2 cm; Wt 89.4 kg
[~2021-06-05 09:51] MED LIST changes: -CYCL-331 PO; +CYCL10TA19 PO
--- NOTE | 2021-06-05 10:40 | PHYS DOC ---
Past History Past Medical History: A-Fib, Asthma, High Cholesterol, Hypertension, Other Additional Past Medical Histor: SARCOIDOSIS Past Surgical History: Cholecystectomy, Gastric Bypass, Knee Replacement, Other Additional Past Surgical Histo: GASTRIC SLEEVE, BILATERAL KNEE REPLACEMENT Smoking: Non-smoker Alcohol Use: None Drug Use: None General Adult EDM: Chief Complaint: KNEE SWELLING HPI: HPI: 65-year-old female presents to the emergency room with continued right knee pain. The patient was seen in this emergency room a couple months ago for right knee pain after knee replacement in November 2019. There were no acute findings at that time. The patient has seen orthopedics and her primary physician but she continues to have pain. She takes pain medication prescribed from her primary provider, but when the medicine wears off the pain comes back. The patient does not want to keep taking these pills. The pain has gotten to the point where if she walks any distance at all she feels like she could fall over. She tells me that she urinated on herself from the pain walking to the bathroom the other day. She does not know what else to do. She denies fever or chills. She denies any new trauma. Review of Systems: Review of Systems: Constitutional: Denies fever or chills Eyes: Denies change in visual acuity HENT: Denies nasal congestion or sore throat Respiratory: Denies cough or shortness of breath Cardiovascular: Denies chest pain or edema GI: Denies abdominal pain, nausea, vomiting, bloody stools or diarrhea : Denies dysuria Musculoskeletal: Right knee pain Integument: Denies rash Neurologic: Denies headache, focal weakness or sensory changes Endocrine: Denies polyuria or polydipsia Lymphatic: Denies swollen glands Psychiatric: Denies depression or anxiety Allergies: Allergies: Allergies Coded Allergies Type Severity Reaction Last Updated Verified No Known Drug Allergies 06/05/21 No Physical Exam: PE: Constitutional: Well developed, well nourished, no acute distress, non-toxic appearance. [] HENT: Normocephalic, atraumatic, bilateral external ears normal, oropharynx moist, no oral exudates, nose normal. [] Eyes: PERRLA, EOMI, conjunctiva normal, no discharge. [] Neck: Normal range of motion, no tenderness, supple, no stridor. [] Cardiovascular: Heart rate regular rhythm, no murmur [] Lungs & Thorax: Bilateral breath sounds clear to auscultation [] Abdomen: Bowel sounds normal, soft, no tenderness, no masses, no pulsatile masses. [] Skin: Warm, dry, no erythema, no rash. [] Back: No tenderness, no CVA tenderness. [] Extremities: Scars from bilateral knee replacement surgery, anterior tenderness, mild swelling, no obvious deformity, effusion, or infection. Pain with flexion. [] Neurologic: Alert and oriented X 3, normal motor function, normal sensory function, no focal deficits noted. [] Psychologic: Affect normal, judgement normal, mood normal. [] Current Patient Data: Vital Signs: Vital Signs Date Time Temp Pulse Resp B/P (MAP) Pulse Ox O2 Delivery O2 Flow Rate FiO2 06/05/21 10:02 98.0 63 18 123/87 (99) 100 Room Air EKG: EKG: [] Radiology/Procedures: Radiology/Procedures: [] Impressions: Site ID: [id number] EXAMINATION: XR KNEE 3 [id number]. HISTORY: 65 years Female Reason: worsening pain, replacement 11/2020 COMPARISON: March 20, 2021. FINDINGS: There is a right knee replacement with the prosthesis seen in good alignment. No loosening or from other from abnormality is identified. There is a no acute fractures or dislocation. Small suprapatellar fluid is suggested similar to the previous exam. Spurs along the patella are seen. IMPRESSION: No acute process. Electronically signed by: Jaison Ramirez MD (06/05/2021 10:39 AM) [id number] DICTATED AND SIGNED BY: JAISON RAMIREZ MD DATE: 06/05/21 1037 CC: JUNIOR GOMES DO; MUNA MEEHAN ~MTH0 0 Heart Score: C/O Chest Pain: N/A Risk Factors: Risk Factors: DM, Current or recent (<one month) smoker, HTN, HLP, family history of CAD, obesity. Risk Scores: Score 0 - 3: 2.5% MACE over next 6 weeks - Discharge Home Score 4 - 6: 20.3% MACE over next 6 weeks - Admit for Clinical Observation Score 7 - 10: 72.7% MACE over next 6 weeks - Early Invasive Strategies Course & Med Decision Making: Course & Med Decision Making Pertinent Labs and Imaging studies reviewed. (See chart for details) The patient's knee x-ray is negative for acute findings. She does have a small effusion the most worrisome of the patella. The patient already has pain medication prescribed by her primary physician. She is working on a referral to a second orthopedic surgeon for second opinion. There is really nothing else to do at this time until she sees orthopedics. I have made the patient aware of her results. She is stable for discharge at this time. [] Dragon Disclaimer: Dragon Disclaimer: This electronic medical record was generated, in whole or in part, using a voice recognition dictation system. Departure Departure: Impression: Primary Impression: Right knee pain Qualified Codes: M25.561 - Pain in right knee; G89.29 - Other chronic pain Disposition: HOME / SELF CARE / HOMELESS Condition: STABLE Referrals: MUNA MEEHAN (PCP) Patient Instructions: Knee Pain, [id number] JUNIOR GOMES DO Jun 05, 2021 10:40
[2021-06-05 11:32] VITALS: BP 130/86
== END 2021-06-05 11:33 | disposition home or self-care (01) ==
LOC: ER 09:51
DX: M25.561 Pain in right knee (principal); J45.909 Unspecified asthma, uncomplicated; E78.5 Hyperlipidemia, unspecified; I10 Essential (primary) hypertension; Z90.49 Acquired absence of other specified parts of digestive tract
CPT/HCPCS: 73562; 99283-25

== ENCOUNTER 2021-08-16 07:35 | Emergency (ER) | payer MEDICAID ==
[~2021-08-16] VITALS: Ht 170.2 cm; Wt 89.4 kg
--- NOTE | 2021-08-16 08:54 | PHYS DOC ---
Past History Past Medical History: A-Fib, Asthma, High Cholesterol, Hypertension, Other Additional Past Medical Histor: SARCOIDOSIS (GEORGETTE SAVAGE DO) Past Surgical History: Cholecystectomy, Gastric Bypass, Knee Replacement, Other Additional Past Surgical Histo: GASTRIC SLEEVE, BILATERAL KNEE REPLACEMENT (GEORGETTE SAVAGE DO) Smoking: Non-smoker Alcohol Use: None Drug Use: None (GEORGETTE SAVAGE DO) Adult General Chief Complaint Chief Complaint: LOWER EXT PAIN [facility] HPI Patient is a 65 year old female who presents with right knee pain. The patient is status post total knee replacement last year. She comes to the ER today complaining of acute on chronic right knee pain. She has been followed by her primary Ortho and primary care doctor for chronic pain symptoms. She is currently taking NSAID therapy only. She complains of the pain is worsened over the last week. Pain is over the lateral aspect of the right knee. Pain is typical for her symptoms but uncontrollable. She has not had a fever. No new injury. Her next follow-up appointment is 11 days from now with her orthopedist. (GEORGETTE SAVAGE DO) Review of Systems Review of Systems Constitutional: Denies fever or chills Eyes: Denies change in visual acuity, redness, or eye pain HENT: Denies nasal congestion or sore throat Respiratory: Denies cough or shortness of breath Cardiovascular: No additional information not addressed in HPI GI: Denies abdominal pain, nausea, vomiting, bloody stools or diarrhea : Denies dysuria or hematuria Musculoskeletal: As documented in HPI Integument: Denies rash or skin lesions All other systems were reviewed and found to be within normal limits, except as documented in this note. (GOERGETTE SAVAGE DO) Allergies Allergies Allergies Coded Allergies Type Severity Reaction Last Updated Verified No Known Drug Allergies 08/16/21 No (GEORGETTE SAVAGE DO) Physical Exam Physical Exam Constitutional: Well developed, well nourished, no acute distress, non-toxic appearance. HENT: Normocephalic, atraumatic, bilateral external ears normal, oropharynx moist Eyes: PERRLA Neck: Normal range of motion Cardiovascular:Heart rate regular Lungs & Thorax: Normal respiratory effort Skin: Warm, dry, no erythema, no rash. Back: Normal ROM Extremities: Healed anterior scar over the right knee. No effusion. No warmth to touch. (GEORGETTE SAVAGE DO) EKG EKG [] (GEORGETTE SAVAGE DO) Radiology/Procedures Radiology/Procedures [] (GEORGETTE SAVAGE DO) Heart Score C/O Chest Pain: No Risk Factors: Risk Factors: DM, Current or recent (<one month) smoker, HTN, HLP, family history of CAD, obesity. Risk Scores: Risk Factors: DM, Current or recent (<one month) smoker, HTN, HLP, family history of CAD, obesity. (GEORGETTE SAVAGE DO) Course & Med Decision Making Course & Med Decision Making Pertinent Labs and Imaging studies reviewed. (See chart for details) 09:00: Patient is seen and examined in the ER. She has acute on chronic right knee pain. No new trauma. Today, we will obtain plain film imaging. 09:35: X-ray is completed. No acute osseous findings. X-rays initially read by ER physician and subsequent radiology over read is congruent. Patient is stable for discharge home. She has follow-up already scheduled in about 11 days. She is encouraged to continue taking her current medication regimen. She is given some tramadol to help her with more severe pain symptoms and to help her sleep at night. Proper use of this medication was discussed and all of her questions were answered prior to discharge home. (GEORGETTE SAVAGE DO) Dragon Disclaimer Dragon Disclaimer This electronic medical record was generated, in whole or in part, using a voice recognition dictation system. (GEORGETTE SAVAGE DO) Departure Departure: Impression: Primary Impression: Knee pain Disposition: HOME / SELF CARE / HOMELESS Condition: GOOD Referrals: MUNA MEEHAN (PCP) Patient Instructions: Knee Pain, [id number] Scripts Tramadol Hcl (TRAMADOL HCL) 50 Mg Tablet 50 MG PO BID PRN for PAIN, #20 TAB Prov: MARY SALCEDO CAR REFINISHER 08/16/21 Tramadol Hcl (TRAMADOL HCL) 50 Mg Tablet 50 MG PO BID PRN for PAIN, #24 TAB Prov: GEORGETTE SAVAGE DO 08/16/21 Tramadol Hcl (TRAMADOL HCL) 50 Mg Tablet 50 MG PO BID PRN for PAIN, #20 TAB Prov: GEORGETTE SAVAGE DO 08/16/21 GEORGETTE SAVAGE DO Aug 16, 2021 08:54 MARY SALCEDO APRN Aug 16, 2021 10:21
--- NOTE | 2021-08-16 09:21 | RAD ---
Three-view right knee radiographs 08/16/2021 CLINICAL HISTORY: Right knee replacement. Increasing pain. AP, lateral and oblique digital radiographs of the right knee were obtained. Comparison study is date d 06/05/2021. The patient is post right TKA. The prosthetic components are intact. No fracture or dis location of the right knee is seen. Mild to moderate enthesophyte formation is seen involving the tib ial tuberosity in the anterior patella, unchanged. IMPRESSION: Post right TKA. No acute osseous abnormality is seen. Electronically signed by: Zak Cordero MD (08/16/2021 9:19 AM) [id number]
[2021-08-16] MEDS ORDERED: TRAM50TA PO ×4 (09:38→10:20)
[2021-08-16 10:35] VITALS: BP 125/70
== END 2021-08-16 10:35 | disposition home or self-care (01) ==
LOC: ER 07:35
DX: M25.561 Pain in right knee (principal); G89.29 Other chronic pain; I48.91 Unspecified atrial fibrillation; J45.909 Unspecified asthma, uncomplicated; E78.00 Pure hypercholesterolemia, unspecified; I10 Essential (primary) hypertension; Z96.653 Presence of artificial knee joint, bilateral; Z98.84 Bariatric surgery status
CPT/HCPCS: 73562; 99283

== ENCOUNTER → 2021-10-22 | Outpatient (CLI) | payer MEDICAID ==
[~2021-10-22] MED LIST changes: +TRAM50TA PO
--- NOTE | 2021-10-22 15:19 | RAD ---
DATE: 10/22/2021 EXAM: MG 2D BILAT SCREENING HISTORY: Screening COMPARISON: 03/12/2020, 08/15/2018, 05/27/2017 This study was interpreted with the benefit of Computerized Aided Detection (CAD). Breast Density: SCATTERED The breast parenchyma shows scattered fibroglandular densities. Breast pare nchyma level B. FINDINGS: No suspicious mass, suspicious calcification, or architectural distortion. IMPRESSION: No change or evidence of malignancy. BI-RADS CATEGORY: 1 NEGATIVE RECOMMENDED FOLLOW-UP: 12M 12 MONTH FOLLOW-UP PQRS compliance statement: Patient information was entered into a reminder system with a target due d ate for the next mammogram. Mammography is a sensitive method for finding small breast cancers, but it does not detect them all a nd is not a substitute for careful clinical examination. A negative mammogram does not negate a clin ically suspicious finding and should not result in delay in biopsying a clinically suspicious abnorma lity. "Our facility is accredited by the [employer] Mammography Program." Electronically signed by: Lara Uribe MD (10/22/2021 3:17 PM) [id number]
== END ==
LOC: MAMMO 14:21
PROVIDERS: ATTEND Physician Assistant Medical
DX: Z12.31 Encounter for screening mammogram for malignant neoplasm of breast (principal)
CPT/HCPCS: 77067

== ENCOUNTER → 2021-11-16 | Outpatient (CLI) | payer MEDICAID ==
--- NOTE | 2021-11-16 12:44 | RAD ---
XR CHEST 2V INDICATION: COUGH COMPARISON STUDY: None. FINDINGS: Lungs: Normal lung volume. No pulmonary mass or consolidation. The tracheobronchial tree and hilar st ructures are normal. Pleura: No pleural effusion or pneumothorax. Heart and Mediastinum: The cardiomediastinal silhouette is normal. The great vessels of the thorax ar e normal. Bones and Soft Tissues: Degenerative changes of the spine. IMPRESSION: No acute cardiopulmonary process. Electronically signed by: Eyad Villanueva MD (11/16/2021 12:41 PM) [id number]
== END ==
LOC: RAD 12:07
PROVIDERS: ATTEND Internal Medicine Pulmonary Disease
DX: J45.909 Unspecified asthma, uncomplicated (principal); R05.9 Cough, unspecified; M47.819 Spondylosis without myelopathy or radiculopathy, site unspecified
CPT/HCPCS: 71046